=== PATIENT | male | born 1955 | race Caucasian/White ===

== ENCOUNTER 2016-11-21 10:25 | Inpatient (IN) | payer BC ==
[2016-11-05 11:26] VITALS: BMI 34.0
--- NOTE | 2016-11-05 12:02 | PAT Medication Instructions ---
Service Date Nov 05, 2016. Current Home Medication List Acetaminophen (Tylenol), 1,000 MG PO PRN Aspirin (Aspirin Ec), 81 MG PO QAM Atorvastatin (Lipitor), 80 MG PO QAM Carvedilol (Coreg), 3.125 MG PO BID Clopidogrel (Plavix), 75 MG PO QAM Ezetimibe (Zetia), 10 MG PO QAM Metformin Hcl (Glucophage), 1,000 MG PO QPM Ranolazine (Ranexa), 1 TAB PO BID Triamterene/Hctz (Maxzide 75MG/50MG), 0.5 TAB PO QAM Medication Instructions For Your Scheduled Surgery - Hold the following medications 5 DAYS prior to surgery per Cardiology instructions: Clopidogrel (Plavix), 75 MG PO QAM - Hold the following medications 48 hours prior to surgery: Metformin Hcl (Glucophage), 1,000 MG PO QPM - Hold the following medications the morning of surgery: Triamterene/Hctz (Maxzide 75MG/50MG), 0.5 TAB PO QAM - Take the following medications the morning of surgery with a sip of water OTHERWISE NOTHING TO EAT OR DRINK AFTER MIDNIGHT: Ranolazine (Ranexa), 1 TAB PO BID Carvedilol (Coreg), 3.125 MG PO BID Ezetimibe (Zetia), 10 MG PO QAM Aspirin (Aspirin Ec), 81 MG PO QAM Atorvastatin (Lipitor), 80 MG PO QAM Acetaminophen (Tylenol), 1,000 MG PO PRN (may take if needed up to 4 hours prior to surgery) - Take the following medications as scheduled the night before surgery: Ranolazine (Ranexa), 1 TAB PO BID Carvedilol (Coreg), 3.125 MG PO BID Acetaminophen (Tylenol), 1,000 MG PO PRN If you have any questions please call us at [phone] or [phone] or [phone]
[2016-11-05 12:30] LABS: BASO % 0.5 %; BASO ABS # 0.02 K/uL (0-0.2); COMPLETE YES; EOS % 1.9 %; IG% 0.2 %; LYMPH % 26.9 %; LYMPH ABS # 1.16 K/uL (1.2-3.4); MEAN CELL VOLUME 90.5 fL (80-100); MEAN CORPUSCULAR HEMOGLOBIN 31.6 pg (25-34); MEAN CORPUSCULAR HGB CONC 34.9 g/dl (32-36); MEAN PLATELET VOLUME 10.4 fL (7.4-10.4); MONO % 9.3 %; NEUT % 61.2 %; PLATELET COUNT 167 K/uL (130-400); RED BLOOD COUNT 4.31 M/uL (4.7-6.1); WHITE BLOOD COUNT 4.32 K/uL (4.8-10.8)
[2016-11-05 12:35] LABS: URINE APPEARANCE CLEAR (CLEAR); URINE BILIRUBIN NEG (NEG); URINE COLOR YELLOW; URINE NITRITE NEG (NEG); URINE PH 5.5 (4.5-7.5); URINE SPECIFIC GRAVITY 1.017 (1.000-1.030); UROBILINOGEN NEG (NEG); ZZUR CULT IF INDIC CLEAN CATCH NO
[2016-11-05 12:41] LABS: MANUAL MICROSCOPIC REQUIRED? NO; REVIEW REQ? NO
[2016-11-05 12:47] LABS: PARTIAL THROMBOPLASTIN RATIO 1.1; PROTHROMBIN TIME (PATIENT) 10.7 SECONDS (9.0-12.0)
[2016-11-05 13:20] LABS: ESTIMATED AVERAGE GLUCOSE 91 mg/dl; HA1C FLAG Normal (Normal)
--- NOTE | 2016-11-05 13:34 | DIAGNOSTIC IMAGING REPORT ---
CHEST 2 VIEWS ROUTINE CLINICAL HISTORY: Preoperative evaluation. COMPARISON STUDY: No previous studies for comparison. FINDINGS: Lung volumes are normal. There is no pneumothorax or pleural effusion. There is no consolidation to suggest pneumonia. Cardiac size is normal. Mediastinal contours are normal. No evidence of pulmonary edema. Osteoarthritis of the right glenohumeral joint is noted. Linear left lower lung opacity is suggestive of atelectasis. There is minimal right lower lung atelectasis. IMPRESSION: No acute cardiopulmonary findings. Electronically signed by: Jmiy Hall M.D. 11/05/2016 1:33 PM Dictated Date/Time: 11/05/2016 1:31 PM
[2016-11-05 14:01] LABS: BUN/CREATININE RATIO 12.7 (10-20); CALCIUM 9.1 mg/dl (8.5-10.1)
--- NOTE | 2016-11-20 21:08 | History and Physical ---
History & Physical Date & Time of Service: Nov 20, 2016 at 21:02 Chief Complaint: Right Shoulder Degenerative Joint Disease Primary Care Physician: Tori Spangler M.D. History of Present Illness Source: patient chronic rt shoulder pain, Past Medical/Surgical History Heart murmur, HTN, Hypercholsterol, acid reflux. hiatel hernia, obesity. Social History Smoking Status: Never Smoker Alcohol Use: occasionally Allergies Coded Allergies: No Known Allergies (Unverified , 11/05/16) Home Medications Scheduled Acetaminophen (Tylenol), 1,000 MG PO PRN Aspirin (Aspirin Ec), 81 MG PO QAM Atorvastatin (Lipitor), 80 MG PO QPM Carvedilol (Coreg), 3.125 MG PO BID Clopidogrel (Plavix), 75 MG PO QAM Ezetimibe (Zetia), 10 MG PO QAM Metformin Hcl (Glucophage), 1,000 MG PO QPM Ranolazine (Ranexa), 1 TAB PO BID Triamterene/Hctz (Maxzide 75MG/50MG), 0.5 TAB PO QAM Review of Systems Musculoskeletal: + joint pain, + muscle pain Physical Exam General Appearance: WD/WN, no apparent distress Head: normocephalic, atraumatic Eyes: normal inspection, PERRL, EOMI ENT: normal ENT inspection Respiratory/Chest: chest non-tender, lungs clear Cardiovascular: regular rate, rhythm (+ iii/vi murmur) right shoulder decreased strength, + crep w PROM, N/V+ Impression Assessment and Plan Right shooulder OA Advanced Directives Existing Living Will: No Existing Power of Wharf Attendant: No
[2016-11-21] VITALS (8 sets, daily range): BP systolic 108–137; BP diastolic 60–91; PULSE 57–93; TEMP 36.6–37; O2SAT 94–99; Ht 172.7 cm; Wt 102.1 kg
[~2016-11-21] VITALS: Ht 172.7 cm; Wt 102.1 kg
[~2016-11-21 10:25] MED LIST: ACET-1256 PO; ACETAMINOPHEN 500 MG TAB PO SCH; ASPI81TA28 PO; ATOR-26 PO; BUPIVACAINE/EPINEPHRINE 0.25% 1:200,000 30 ML VIAL ONE; CARV3.122 PO; CEFAZOLIN 2000 MG/60 ML D5W 60 ML IV SCH; CLONIDINE HCL 100 MCG/ML SYRINGE ONE; CLOP1TAB15 PO; CeleBREX 200 MG CAP PO SCH; EZET10TA63 PO; FAMOTIDINE 20 MG TAB PO SCH; GABAPENTIN 300 MG CAP PO SCH; LACTATED RINGER'S 1000ML 1,000 ML IV SCH; LACTATED RINGER'S 1000ML IV SCH; METF-384 PO; METOCLOPRAMIDE HCL 10 MG TAB PO SCH; RANO1000 PO; ROPIVACAINE 0.5% 5 MG/ML 30 ML VIAL ONE; TRIA75TA53 PO
[2016-11-21] MEDS ORDERED: MEPERIDINE HCL 25 MG/ML CARP IV PRN (11:00)
[2016-11-21] MEDS ORDERED: FLUMAZENIL 0.1 MG/1 ML 10 ML VIAL IV PRN (11:00)
[2016-11-21] MEDS ORDERED: PHENYLEPHRINE 100MCG/ML 5ML SYR IV PRN (11:00)
[2016-11-21] MEDS ORDERED: HYDROmorphone INJ 2 MG/ML SYR/VIAL IV PRN (11:00)
[2016-11-21] MEDS ORDERED: FENTANYL CITRATE INJ 50 MCG/1 ML 2 ML VIAL IV PRN (11:00)
[2016-11-21] MEDS ORDERED: ATROPINE SULFATE 0.1 MG/ML 5ML SYR IV PRN (11:00)
[2016-11-21] MEDS ORDERED: ONDANSETRON INJ 2 MG/ML 2 ML VIAL IV PRN ×2 (11:00→18:00)
[2016-11-21] MEDS ORDERED: EpHEDrine SULFATE INJ 50 MG/ML AMP IV PRN (11:00)
[2016-11-21] MEDS ORDERED: LABETALOL HCL IV 5 MG/ML 20ML IV PRN (11:00)
[2016-11-21] MEDS ORDERED: NALOXONE HCL 0.4 MG/1 ML VIAL/CARP IV PRN ×2 (11:00→18:00)
[2016-11-21] MEDS ORDERED: DEXAMETHASONE SOD INJ 4 MG/ML VIAL ONE (12:44)
[2016-11-21] MEDS ORDERED: LIDOCAINE HCL 2% 2 ML VIAL (20MG/ML) ONE (12:44)
[2016-11-21] MEDS ORDERED: NEOSTIGMINE METHYLSULFATE 5 MG/5 ML SYR ONE (12:44)
[2016-11-21] MEDS ORDERED: PROPOFOL IV EMULSION 10 MG/ML 20 ML VIAL IV ONE (12:44)
[2016-11-21] MEDS ORDERED: ONDANSETRON INJ 2 MG/ML 2 ML VIAL ONE (12:44)
[2016-11-21] MEDS ORDERED: GLYCOPYRROLATE INJ 0.2 MG/ML VIAL ONE (12:44)
[2016-11-21] MEDS ORDERED: ROCURONIUM BROMIDE 10 MG/ML 5 ML VIAL ONE (12:44)
[2016-11-21] MEDS ORDERED: FENTANYL CITRATE INJ 50 MCG/1 ML 2 ML VIAL ONE (12:45)
[2016-11-21] MEDS ORDERED: MIDAZOLAM HCL 1 MG/ML 2ML VIAL ONE (12:45)
--- NOTE | 2016-11-21 14:11 | History & Physical Bridge Note ---
H&P Re-Evaluation Bridge Note: I have examined the patient, reviewed the History & Physical and in the interval since the performance of the History & Physical I have noted the following changes of clinical significance:recurrence of ganglion cyst at acj with some tenderness.plan is repair vs debridement of rotator cuff partial tear and reversed total shoulder if cuff tendinopathy more sever than mri suggests.the ganglion cyst will be excised and acj spur and joint debrided
[2016-11-21] MEDS ORDERED: BACITRACIN 50000 UNIT VIAL ONE (14:19)
[2016-11-21] MEDS ORDERED: EpINEphrine HCL INJ 1 MG/ML 5ML SYRINGE ONE (14:20)
[2016-11-21] MEDS ORDERED: MAGNESIUM HYDROXIDE SUSP 30 ML UDC PO PRN (18:00)
[2016-11-21] MEDS ORDERED: ZOLPIDEM TARTRATE 5 MG TAB PO PRN (18:00)
[2016-11-21] MEDS ORDERED: BISACODYL 10 MG SUPP PR PRN (18:00)
[2016-11-21] MEDS ORDERED: SOD PHOSPHATE/SOD BIPHOSPHATE ENEMA 132 ML BTL PR PRN (18:00)
[2016-11-21] MEDS ORDERED: MoRPHine SULFATE 2 MG/ML CARP IV PRN (18:00)
--- NOTE | 2016-11-21 18:18 | Anesthesiology Progress Note ---
Anesthesia Post Op Note Date & Time Nov 21, 2016 at 18:18 Vital Signs Pain Intensity: 0 Vital Signs Past 12 Hours Date Time Temp Pulse Resp B/P (MAP) Pulse Ox O2 Delivery O2 Flow Rate FiO2 11/21/16 18:05 75 19 121/79 98 Mask 10 11/21/16 17:57 36.1 77 16 125/79 98 Mask 10 11/21/16 14:36 59 14 120/84 (96) 100 Mask 10 11/21/16 10:47 36.7 57 18 137/91 98 Room Air Notes Mental Status: alert / awake / arousable, participated in evaluation Pt Amnestic to Procedure: Yes Nausea / Vomiting: adequately controlled Pain: adequately controlled Airway Patency, RR, SpO2: stable & adequate BP & HR: stable & adequate Hydration State: stable & adequate Anesthetic Complications: no major complications apparent
--- NOTE | 2016-11-21 18:22 | [facility] Operative Report ---
Operative Report Operative Date Nov 21, 2016. Pre-Operative Diagnosis Right shoulder osteoarthritis, glenohumeral and acromioclavicular with ganglionic cyst at the acromioclavicular joint, rotator cuff tendinopathy and likely biceps tendinopathy. Post-Operative Diagnosis same with marked biceps tendinopathy with split biceps tendon Procedure(s) Performed Right shoulder total shoulder arthroplasty, biceps tenodesis, excision ganglion cyst at the acromioclavicular joint and acromioclavicular joint debridement with partial distal clavicle excision. Surgeon Dr. Jeremy Najera Health Psychologist Surgeon(s) Samuel Espinal PA-C Estimated Blood Loss 200ml Findings Ganglionic cyst at acromioclavicular joint with recurrent bone spurs acromioclavicular joint and degenerative arthritis posterior acromioclavicular joint status post prior distal clavicle excision. Grade 4 advanced glenohumeral osteoarthritis with significant biceps tendinopathy with significant degeneration of the intra-articular biceps with split biceps tendon. Specimens A: Right humeral head B: Ganglion cyst right shoulder Drains 2 Hemovac Anesthesia Gen. and regional block Complication(s) None Disposition Recovery Room / PACU Indications Failed conservative management severe end-stage glenohumeral osteoarthritis rotator cuff tendinopathy and biceps tendinopathy and ganglion cyst recurrent Description of Procedure The patient was taken to the operating room and anesthetized under a general and regional block anesthesia. A towel roll was placed under the medial border of the scapula of the right shoulder. The patient's head was placed on a foam headrest and protective eyewear was placed and the extremities were well padded. The arm was draped free in order to manipulate the shoulder as necessary. The shoulder exam demonstrated range of motion passively was 160 forward elevation 100 of abduction 70 of external rotation and 40 of internal rotation. There was also a 2 cm ganglion cyst over the acromioclavicular joint. . The shoulder was sterilely prepped and draped in the usual sterile fashion. An anterior deltopectoral approach was performed. A longitudinal incision was made in the interval. The skin was incised sharply and subcutaneous tissues dissected down to the fascia. The cephalic vein was identified and retracted laterally with the deltoid. Any crossing veins were tied off with silk ties and divided. The clavipectoral fascia was divided at the lateral margin of the conjoined tendon and divided up to the level of the coracoacromial ligament which was preserved. The upper 1 cm of the pectoralis was released for inferior exposure. The biceps tendon findings demonstrated significant biceps tenosynovitis extending up into the bicipital groove but the biceps tendon at the area of the pectoralis was normal. Later in the dissection the intra-articular biceps tendon showed marked widening with a split tendon and severe degeneration. . The rotator cuff tendon findings demonstrated that there was scar tissue and subdeltoid adhesions from prior arthroscopic surgery. The bursal surface of the rotator cuff was completely intact and there was some thinning of the supraspinatus consistent with some tendinopathy but no evidence of any full-thickness rotator cuff tear. The subacromial bursa and scar was all resected fraying of the rotator cuff completely and the coracoacromial ligament was left intact. . The circumflex vessels were identified and tied off with silk ties and divided laterally. The fibers and subscapularis were split longitudinally at the level of the circumflex vessels down to the capsule and then reflected off the inferior capsule using a Kitner elevator. The axillary nerve was identified with a tug test and protected with a blunt Michael retractor. The rotator interval was opened up and extended down to the glenoid. The biceps tendon was identified and tenodesed to the pectoralis tendon with [id number] #2 FiberWire sutures and the proximal biceps was resected. The subscapularis tendon was taken down with a trans-tendinous incision leaving a cuff of tissue for repair on the lesser tuberosity. The incision was carried down to the tendon and the capsule and a #1 Vicryl suture was placed into the free end of the subscapularis tendon. The capsule was subperiosteally dissected off the inferior neck of the humerus exposing the humeral osteophytes which demonstrated large inferior osteophytes extending from anterior to posterior. The osteophytes were excised with an artist chisel and a rongeur. The capsular release along the inferior neck of the humerus was completed. The capsule was divided anteriorly under direct visualization with the actually nerve retracted inferiorly and this was divided down to the glenoid and then released off the anterior labrum with Cisneros scissors and then the superior capsule was released to meet that release achieving a 360 release of the subscapularis. The humerus was then retracted posterior to the glenoid with a Fukuda retractor. The remainder of the biceps tendon and labrum was resected. The glenoid findings demonstrated eburnated bone grade 4 DJD concentric erosion. . I did an anterior inferior and posterior inferior release with electrocautery on bone and a Saravia elevator with the axillary nerve continuing to be protected with the blunt Hohmann retractor inferiorly. When the releases were completed and the humeral head was exposed with some extension and external rotation and in anatomic head cut was made using the oscillating saw. The humeral head findings demonstrated grade 4 DJD eburnated bone some flattening of the joint surface. The humeral head was then retracted posterior to the glenoid with Hohmann retractors and Bankart retractor placed anteriorly. A central drill hole was made into the glenoid. The glenoid was sized for a size 48 mm component. The Tornier total shoulder arthroplasty system was used and the AffinityCortiLoc glenoid component was chosen. The glenoid was reamed and the central drill widened and the guide for the peg holes was placed in the peg holes were drilled and a trial component was placed with a tight fit. The trial was removed and the glenoid was irrigated with pulsatile lavage antibiotic solution and the drill holes were dried and packed with epinephrine- soaked tampons for hemostasis. The Palacos G cement was vacuum mixed. The final component was cemented into position and held in position with pressure until the cement cured. Attention was taken to the humeral preparation. A centralizing awl was used in the canal followed by broaches up to a size 7. This had the appropriate fit and fill. A size 50 x 19 mm high offset ascend flex Tornier humeral head was then used. It was rotated into appropriate position. A trial reduction was performed and the shoulder was stable. The trial was removed and the humerus and canal were irrigated with antibiotic solution with bacitracin. 3 drill holes were made into the hard bone in the bicipital groove lateral to the lesser tuberosity and 3 #5 FiberWire transosseous sutures were placed for repair of the subscapularis. After further irrigation of the canal and the final components were assembled. The final components were the 7B standard stem Tornier ascend flex with 52 x 19 high offset head. . The implant was then impacted into the humerus with a tight press-fit. The humerus was reduced to the glenoid and stability verified. The subscapularis was repaired with the #5 FiberWire sutures in a Luis Carlos-Earnest suture technique and lateral row fixation with [id number] #2 FiberWire in the soft tissue. The rotator interval was closed and maximal external rotation. The pectoralis was then closed with [id number] #2 FiberWire suture. The range of motion was assessed and the patient had 150 forward elevation 50 external rotation and 100 abduction without tension on repair. Attention was then taken to the excision of the cyst. A transverse incision was made over the acromioclavicular joint. Subcutaneous tissues were dissected down and off of the ganglionic cyst which was slightly penetrated and gel-like material came out of it which was consistent with a cyst. The cyst was circumferentially excised excising these stalk of the cyst which came from the posterior acromial clavicular joint. Subperiosteal dissection was performed dorsally to expose the acromial clavicular joint which demonstrated that there was some narrowing of the posterior, clavicular joint arthritic spurs over the dorsal aspect of the acromial clavicular joint and some scar tissue in the joint from previous distal clavicle excision. I felt that I should excise more distal clavicle posteriorly so there wouldn't be any impingement. This was performed with a rongeur and the bone spurs were resected dorsally. Scar tissue was resected from the joint and the joint was irrigated copiously with pulsatile lavage. The deltoid trapezius fascia and capsule were repaired with otinsp-ap-etwil #2 FiberWire sutures and the subcutaneous tissues were closed with interrupted 2-0 Vicryl sutures. 2 Hemovac drains were placed in the deltopectoral interval area wound.. The deltopectoral interval was closed with oylvoq-ya-sthio #1 Vicryl sutures. The subcutaneous tissues were closed with interrupted 2-0 Vicryl and the skin was closed with susie both the acromial trabecular and deltopectoral incisions and sterile dressing were applied. The patient tolerated the procedure well. Samuel Espinal My physician assistant softball coach, assisted in soft tissue retraction instrument management suture management and assisted in the subcutaneous and skin closure and will participate in the postoperative care the patient. I attest to the content of the Intraoperative Record and any orders documented therein. Any exceptions are noted below.
--- NOTE | 2016-11-21 18:25 | DIAGNOSTIC IMAGING REPORT ---
RIGHT SHOULDER 2 VIEWS CLINICAL HISTORY: Postoperative examination. FINDINGS: 2 portable views of the right shoulder are obtained. No prior studies are available for comparison at the time of dictation. The skeletal structures are osteopenic. A right shoulder arthroplasty is in near-anatomic alignment. Postoperative change is suggested at the acromioclavicular joint. No acute fracture is seen. There are expected postoperative changes overlying the right shoulder including skin clips, subcutaneous gas, soft tissue swelling, and a surgical drain. The partially imaged right lung parenchyma appears clear. IMPRESSION: Expected postoperative findings status post right shoulder arthroplasty. No acute fracture is seen. Electronically signed by: Naibl Hernandez M.D. 11/21/2016 6:24 PM Dictated Date/Time: 11/21/2016 6:23 PM
[2016-11-21] MEDS: POTASSIUM CHLORIDE INJ 10 MEQ in SODIUM CHLORIDE 0.9% 1000ML 1,000 ML IV SCH (19:44)
[2016-11-21] MEDS ORDERED: GLUCOSE 40% GEL 15 GM TUBE PO PRN (19:45)
[2016-11-21] MEDS ORDERED: GLUCOSE 10 TABS/TUBE PO PRN (19:45)
[2016-11-21] MEDS ORDERED: DEXTROSE 50% 50 ML SYR IV PRN (19:45)
[2016-11-21] MEDS ORDERED: GLUCAGON FOR INJ 1 MG VIAL SQ PRN (19:45)
[2016-11-21] MEDS ORDERED: PNEUMOCOCCAL ADMINISTRATION CHARGE ONE (21:00)
[2016-11-21] MEDS ORDERED: PNEUMOCOCCAL POLYSACCHARIDES 25 MCG/0.5 ML VIAL/SYR IM. ONE (21:00)
[2016-11-21] MEDS: ATORVASTATIN 40 MG TAB PO SCH (21:29)
[2016-11-21] MEDS: DOCUSATE SODIUM 100 MG CAP PO SCH (21:30)
[2016-11-21] MEDS: CARVEDILOL 3.125 MG TAB PO SCH (21:30)
[2016-11-21] MEDS: OXYCODONE HCL 10 MG TABCR (OXYCONTIN) PO SCH (21:31)
[2016-11-21] MEDS: INSULIN ASPART 100 UNITS/ML 3 ML PEN SC SCH (21:43)
[2016-11-21] MEDS: ACETAMINOPHEN 500 MG TAB PO SCH (21:45)
[2016-11-22] VITALS (7 sets, daily range): BP systolic 110–136; BP diastolic 73–86; PULSE 64–75; TEMP 36.4–36.7; O2SAT 96–100
[2016-11-22] MEDS: CEFAZOLIN IV 2,000 MG in DEXTROSE 5% 50ML 50 ML IV SCH ×2 (00:18→08:11)
[2016-11-22] MEDS: POTASSIUM CHLORIDE INJ 10 MEQ in SODIUM CHLORIDE 0.9% 1000ML 1,000 ML IV SCH ×2 (05:59→20:48)
[2016-11-22] MEDS: ACETAMINOPHEN 500 MG TAB PO SCH ×3 (06:00→22:29)
[2016-11-22 07:47] LABS: HEMATOCRIT 37.3 % (42-52); MEAN CELL VOLUME 90.5 fL (80-100); MEAN CORPUSCULAR HEMOGLOBIN 31.3 pg (25-34); MEAN CORPUSCULAR HGB CONC 34.6 g/dl (32-36); MEAN PLATELET VOLUME 10.4 fL (7.4-10.4); PLATELET COUNT 172 K/uL (130-400); RED BLOOD COUNT 4.12 M/uL (4.7-6.1); WHITE BLOOD COUNT 10.84 K/uL (4.8-10.8)
--- NOTE | 2016-11-22 07:48 | Anesthesiology Progress Note ---
Anesthesia Post Op Note Date & Time Nov 22, 2016 at 07:48 Vital Signs Pain Intensity: 0.0 Vital Signs Past 12 Hours Date Time Temp Pulse Resp B/P (MAP) Pulse Ox O2 Delivery O2 Flow Rate FiO2 11/22/16 03:05 36.7 75 16 110/77 (88) 97 Room Air 11/22/16 00:16 Room Air 11/21/16 23:21 36.6 86 16 123/85 (98) 96 Room Air 11/21/16 22:00 36.6 79 16 109/75 (86) 94 Room Air 11/21/16 21:22 36.7 93 18 118/82 (94) 96 Room Air 11/21/16 19:55 36.7 63 18 109/73 (85) 98 Nasal Cannula 2.0 Notes Mental Status: alert / awake / arousable, participated in evaluation Pt Amnestic to Procedure: Yes Nausea / Vomiting: adequately controlled Pain: adequately controlled Airway Patency, RR, SpO2: stable & adequate BP & HR: stable & adequate Hydration State: stable & adequate Anesthetic Complications: no major complications apparent
[2016-11-22 08:14] LABS: BUN/CREATININE RATIO 12.6 (10-20); CALCIUM 8.3 mg/dl (8.5-10.1); CREATININE 1.1 mg/dl (0.60-1.40); POTASSIUM 4.4 mmol/L (3.5-5.1)
[2016-11-22] MEDS: INSULIN ASPART 100 UNITS/ML 3 ML PEN SC SCH ×4 (08:16→20:53)
[2016-11-22] MEDS: PANTOprazole SOD 40 MG TAB PO SCH (08:17)
[2016-11-22] MEDS: OXYCODONE HCL 10 MG TABCR (OXYCONTIN) PO SCH ×2 (08:17→20:55)
[2016-11-22] MEDS: MULTIVITAMIN TAB PO SCH (08:18)
[2016-11-22] MEDS: EZETIMIBE 10MG TAB PO SCH (08:18)
[2016-11-22] MEDS: DOCUSATE SODIUM 100 MG CAP PO SCH ×2 (08:18→20:50)
[2016-11-22] MEDS: CLOPIDOGREL BISULFATE 75 MG TAB PO SCH (08:18)
[2016-11-22] MEDS: ASPIRIN 81 MG ECTAB PO SCH (08:18)
[2016-11-22] MEDS: CARVEDILOL 3.125 MG TAB PO SCH ×2 (08:18→20:51)
--- NOTE | 2016-11-22 08:35 | Orthopedic Progress Note ---
Orthopedic Progress Note Date of Service Nov 22, 2016. Subjective Post OP Day: 1 Reports: feeling well, pain controlled w PO medications, Denies: complaints, chest pain, SOB, nausea / vomiting, light headedness, calf pain Objective N/V intact, capillary refill less than 2 sec., dressing C/D/I, A&O x3 Sling in tact, fingers mobile. Date Time Temp Pulse Resp B/P (MAP) Pulse Ox O2 Delivery O2 Flow Rate FiO2 11/22/16 07:48 36.5 74 14 136/82 (100) 96 Room Air 11/22/16 03:05 36.7 75 16 110/77 (88) 97 Room Air 11/22/16 00:16 Room Air 11/21/16 23:21 36.6 86 16 123/85 (98) 96 Room Air 11/21/16 22:00 36.6 79 16 109/75 (86) 94 Room Air 11/21/16 21:22 36.7 93 18 118/82 (94) 96 Room Air 11/21/16 19:55 36.7 63 18 109/73 (85) 98 Nasal Cannula 2.0 11/21/16 19:25 36.6 70 16 108/72 (84) 99 Nasal Cannula 2.0 11/21/16 19:00 Nasal Cannula 2.0 11/21/16 19:00 98 Nasal Cannula 2.0 11/21/16 18:55 37.0 73 18 114/75 (88) 98 Nasal Cannula 2.0 11/21/16 18:45 73 16 111/73 98 Nasal Cannula 2 11/21/16 18:35 36.3 74 20 119/76 98 Nasal Cannula 2 11/21/16 18:25 73 20 120/77 99 Nasal Cannula 2 11/21/16 18:15 76 19 115/83 99 Mask 10 11/21/16 18:05 75 19 121/79 98 Mask 10 11/21/16 17:57 36.1 77 16 125/79 98 Mask 10 11/21/16 14:36 59 14 120/84 (96) 100 Mask 10 11/21/16 10:47 36.7 57 18 137/91 98 Room Air Laboratory Results 24 Hours: Test 11/22/16 07:21 Hematocrit 37.3 % Hemoglobin 12.9 g/dL Assessment & Plan Assessment: POD #1, Right TSA, biceps tenodesis Plan: PT/ OT DVT proph- ASA D/C plans- home w OPPT Sat. As per medicine. Inhouse Planning Pain Management: Oxycontin, Morphine, PO Tylenol, Oxy IR DVT Prophylaxis: SCDs, ASA Discharge Planning Discharge Planning: home with oppt Pain Management: Oxycontin, PO Tylenol, Oxy IR DVT Prophylaxis: ASA Therapy: Physical Therapy, Occupational Therapy
--- NOTE | 2016-11-22 08:36 | Discharge Instructions ---
Discharge Instructions Date of Service Nov 22, 2016. Admission Reason for Admission: Right Shoulder Degenerative Joint Disease Discharge Discharge Diagnosis / Problem: Right TSA, biceps tenodesis Discharge Goals Goal(s): Improve function Activity Recommendations Activity Limitations: as noted below . Instructions / Follow-Up Instructions / Follow-Up ACTIVITY RECOMMENDATIONS: SELF CARE INSTRUCTIONS AFTER TOTAL SHOULDER ARTHROPLASTY A. You may do daily exercises as taught in physical therapy while in hospital. No lifting with the operative arm. Please schedule your outpatient physical therapy appointment to begin within 2-3 days after leaving the hospital. Specific restrictions will be written on your physical therapy prescription that is provided to you. B. You are to wear your sling/immobilizer at all times EXCEPT when performing your daily exercises, participating in physical therapy and for hygiene purposes. C. You may perform dry, daily dressing changes. Please keep your incision covered. You may shower 48 hours after surgery. Do not apply soap or any ointment/ lotions directly over incision. Do not soak incision in bath tub/swimming pool. D. You may use ice as needed to operative shoulder. SPECIAL CARE INSTRUCTIONS: MEDICATION INSTRUCTIONS: *It is recommended you take Aspirin 325mg daily for four weeks post-op. VERY IMPORTANT TO READ AND REVIEW A. There are a few signs you need to watch for after you are home. Call [facility] at [phone] if you experience any of the followin. Increased severe shoulder pain. Some pain is expected especially when you exercise. 2. Increased swelling in you shoulder or arm; pain or swelling in either upper extremity. 3. Any fluid drainage from the incision. 4. Shortness of breath or chest pain. B. Please call [facility] at [phone] if you have any questions or concerns about your operation or recovery. C. Call your physician if: 1. Temperature is greater than 101 degrees (F). 2. Pain is not relieved by prescribed pain medications. 3. Increase drainage or redness from incision. 4. Unanswered questions or concerns. FOLLOW UP VISIT: Please call [facility] at [phone] to schedule a follow up appointment with Dr. Najera or his PA in 12-14 days from your surgery date. Current Hospital Diet Patient's current hospital diet: Diabetes Type 2 Diet Discharge Diet Recommended Diet: Diabetes Type 2 Diet Procedures Procedures Performed: Right Total Shoulder Arthroplasty; Excision of Ganglion Cyst and Debridement of Acromioclavicular Joint Spur and Joint; Biceps Tenodesis Pending Studies Studies pending at discharge: no Laboratory Results Hemoglobin A1c Test 11/05/16 12:10 Range/Units Estimated Average Glucose 91 mg/dl Hemoglobin A1c 4.8 4.5-5.6 % Medical Emergencies . Who to Call and When: Medical Emergencies: If at any time you feel your situation is an emergency, please call 911 immediately. . Non-Emergent Contact Non-Emergency issues call your: Primary Care Provider . "Provider Documentation" section prepared by Samuel Espinal. . VTE Core Measure Inpt VTE Proph given/why not?: Other Anticoagulation (asa), SCD's [place] Drug Monitoring Program Search Results: patient reviewed within database, no issues identified
[2016-11-22] MEDS: TRIAMTERENE/HCTZ 37.5/25MG TAB PO SCH (08:42)
[2016-11-22] MEDS ORDERED: TRIAMTERENE/HCTZ 37.5/25MG CAP PO SCH (09:00)
--- NOTE | 2016-11-22 16:49 | Medical Consult ---
Consultation Date of Consultation: Nov 22, 2016. Attending Physician: Jeremy Najera M.D. Reason for Consultation: Medical management History of Present Illness Pt is a 61 yo male with hx of HTN, GERD, CARD with total 5 stents placed, who presents with worsening right shoulder pain. Pt underwent a total shoulder arthroplasty with ganglion cyst removal and consulted to our services for medical management. Social History Smoking Status: Never Smoker Alcohol Use: occasionally (2-3 beers a night) Drug Use: none Marital Status: Housing Status: lives with family Allergies Coded Allergies: No Known Allergies (Unverified , 11/21/16) Current Inpatient Medications Current Inpatient Medications Medications (Trade) Dose Ordered Sig/Shanta Route Start Time Stop Time Status Last Admin Dose Admin Aspirin (Ecotrin Tab) 81 mg QAM PO 11/22/16 09:00 12/22/16 08:59 11/22/16 08:18 81 MG Atorvastatin Calcium (Lipitor Tab) 80 mg QPM PO 11/21/16 21:00 12/21/16 20:59 11/21/16 21:29 80 MG Carvedilol (Coreg Tab) 3.125 mg BID PO 11/21/16 21:00 12/21/16 20:59 11/22/16 08:18 3.125 MG Clopidogrel Bisulfate (plAVix TAB) 75 mg QAM PO 11/22/16 09:00 12/22/16 08:59 11/22/16 08:18 75 MG EZETIMIBE (Zetia Tab) 10 mg QAM PO 11/22/16 09:00 12/22/16 08:59 11/22/16 08:18 10 MG Miscellaneous Information (Order Awaiting Action) 1 ea QS N/A 11/22/16 00:00 12/22/16 00:00 Diphenhydramine HCl (Benadryl Cap) 25 mg Q8 PRN PO 11/21/16 18:00 12/21/16 17:59 Zolpidem Tartrate (Ambien Tab) 5 mg HSZ PRN PO 11/21/16 18:00 12/21/16 17:59 Ondansetron HCl (Zofran Inj) 4 mg Q6H PRN IV 11/21/16 18:00 12/21/16 17:59 Pantoprazole Sodium (Protonix Tab) 40 mg QAM PO 11/22/16 09:00 12/22/16 08:59 11/22/16 08:17 40 MG Potassium Chloride 10 meq/ Sodium Chloride 1,005 ml @ 100 mls/hr Q10H3M IV 11/21/16 20:00 11/22/16 19:59 11/22/16 05:59 100 MLS/HR Oxycodone HCl (Roxicodone Immediate Rel Tab) `1-2 TABS FOR PAIN `1 TAB... Q4H PRN PO 11/21/16 18:00 12/05/16 17:59 Oxycodone HCl (Oxycontin Tab) 10 mg Q12 PO 11/21/16 21:00 12/05/16 20:59 11/22/16 08:17 10 MG Acetaminophen (Tylenol Tab) 1,000 mg Q8 PO 11/21/16 22:00 12/21/16 21:59 11/22/16 13:44 1,000 MG Morphine Sulfate (MoRPHine SULFATE INJ) 2 mg Q2H PRN IV 11/21/16 18:00 12/05/16 17:59 Naloxone HCl (Narcan Inj) 0.1 mg Q2M PRN IV 11/21/16 18:00 12/21/16 17:59 Magnesium Hydroxide (Milk Of Magnesia Susp) 30 ml Q6H PRN PO 11/21/16 18:00 12/21/16 17:59 Bisacodyl (Dulcolax Supp) 10 mg DAILY PRN CA 11/21/16 18:00 12/21/16 17:59 Sodium Biphosphate/ Sodium Phosphate (Fleet Enema) 132 ml DAILY PRN CA 11/21/16 18:00 12/21/16 17:59 Docusate Sodium (coLACE CAP) 100 mg BID PO 11/21/16 21:00 12/21/16 20:59 11/22/16 08:18 100 MG Multivitamins (Multivitamin Tab) 1 tab DAILY PO 11/22/16 09:00 12/22/16 08:59 11/22/16 08:18 1 TAB Insulin Aspart (novoLOG ASPART) SLIDING SCALE G... ACHS SC 11/21/16 21:00 12/21/16 20:59 11/22/16 12:14 6 UNITS Glucose (Glucose 40% Gel) 15-30 GRAMS 15 GRAMS... UD PRN PO 11/21/16 19:45 12/21/16 19:44 Glucose (Glucose Chew Tab) 4-8 Tablets 4 Tabl... UD PRN PO 11/21/16 19:45 12/21/16 19:44 Dextrose (Dextrose 50% 50ML Syringe) 25-50ML OF 50% DW IV FOR... UD PRN IV 11/21/16 19:45 12/21/16 19:44 Glucagon (Glucagon Inj) 1 mg UD PRN SQ 11/21/16 19:45 12/21/16 19:44 Morphine Sulfate (MoRPHine SULFATE INJ) 4 mg Q2H PRN IV 11/21/16 19:45 12/05/16 19:44 Triamterene/HCTZ (Maxzide 37.5/25 Tab) 0.5 tab QAM PO 11/22/16 09:00 12/22/16 08:59 11/22/16 08:42 0.5 TAB Review of Systems Constitutional: No fever, No chills Eyes: No worsening of vision, No eye pain, No redness, No discharge ENT: No hearing loss, No unusual epistaxis, No nasal symptoms, No tinnitus Respiratory: No cough, No sputum, No wheezing, No shortness of breath Cardiovascular: No chest pain, No orthopnea, No PND, No edema Abdomen: No pain, No nausea, No vomiting, No diarrhea Musculoskeletal: No joint pain, No muscle pain, No swelling, No calf pain Genitourinary - Male: No hematuria, No dysuria, No urinary frequency, No urinary urgency Neurologic: No memory loss, No paralysis, No weakness, No numbness/tingling, No vertigo Psychiatric: No depression symptoms, No anhedonism, No anxiety, No insomnia Integumentary: No rash, No itch Physical Exam Date Time Temp Pulse Resp B/P (MAP) Pulse Ox O2 Delivery O2 Flow Rate FiO2 11/22/16 14:49 36.4 67 18 117/73 (88) 97 Room Air 11/22/16 11:33 36.7 64 16 123/77 (92) 97 Room Air 11/22/16 08:18 69 133/86 (102) 11/22/16 07:48 36.5 74 14 136/82 (100) 96 Room Air 11/22/16 07:20 Room Air 11/22/16 03:05 36.7 75 16 110/77 (88) 97 Room Air 11/22/16 00:16 Room Air 11/21/16 23:21 36.6 86 16 123/85 (98) 96 Room Air 11/21/16 22:00 36.6 79 16 109/75 (86) 94 Room Air 11/21/16 21:22 36.7 93 18 118/82 (94) 96 Room Air 11/21/16 19:55 36.7 63 18 109/73 (85) 98 Nasal Cannula 2.0 11/21/16 19:25 36.6 70 16 108/72 (84) 99 Nasal Cannula 2.0 11/21/16 19:00 Nasal Cannula 2.0 11/21/16 19:00 98 Nasal Cannula 2.0 11/21/16 18:55 37.0 73 18 114/75 (88) 98 Nasal Cannula 2.0 11/21/16 18:45 73 16 111/73 98 Nasal Cannula 2 11/21/16 18:35 36.3 74 20 119/76 98 Nasal Cannula 2 11/21/16 18:25 73 20 120/77 99 Nasal Cannula 2 11/21/16 18:15 76 19 115/83 99 Mask 10 11/21/16 18:05 75 19 121/79 98 Mask 10 11/21/16 17:57 36.1 77 16 125/79 98 Mask 10 General Appearance: WD/WN, no apparent distress Head: normocephalic, atraumatic Eyes: normal inspection, PERRL, EOMI, sclerae normal, funduscopic exam normal Neck: supple, no adenopathy, thyroid normal, no JVD Respiratory/Chest: chest non-tender, lungs clear, normal breath sounds, no respiratory distress Cardiovascular: regular rate, rhythm, no edema, no gallop, no JVD Abdomen/GI: normal bowel sounds, non tender, soft, no organomegaly, no pulsatile mass Back: normal inspection, no CVA tenderness Neurologic/Psych: no motor/sensory deficits, alert, normal mood/affect, normal reflexes Laboratory Results Last 24 Hours Test 11/21/16 18:04 11/21/16 19:18 11/21/16 21:37 11/22/16 07:21 Bedside Glucose 108 mg/dl 141 mg/dl 153 mg/dl White Blood Count 10.84 K/uL Red Blood Count 4.12 M/uL Hemoglobin 12.9 g/dL Hematocrit 37.3 % Mean Corpuscular Volume 90.5 fL Mean Corpuscular Hemoglobin 31.3 pg Mean Corpuscular Hemoglobin Concent 34.6 g/dl RDW Standard Deviation 41.4 fL RDW Coefficient of Variation 12.5 % Platelet Count 172 K/uL Mean Platelet Volume 10.4 fL Sodium Level 138 mmol/L Potassium Level 4.4 mmol/L Chloride Level 107 mmol/L Carbon Dioxide Level 22 mmol/L Anion Gap 9.0 mmol/L Blood Urea Nitrogen 14 mg/dl Creatinine 1.10 mg/dl Est Creatinine Clear Calc Drug Dose 82.7 ml/min Estimated GFR () 84.1 Estimated GFR (Non- 72.6 BUN/Creatinine Ratio 12.6 Random Glucose 132 mg/dl Calcium Level 8.3 mg/dl Test 11/22/16 08:09 11/22/16 11:50 Bedside Glucose 130 mg/dl 120 mg/dl Assessment & Plan Pt is a 61 yo male with worsening shoulder pain s/p total shoulder arthroplasty POD#1 Right shoulder arthritis s/p total shoulder arthroplasty POD #1. Pain controlled. PT/OT and DVT ppx per primary team. No acute blood loss anemia CAD stable, cont home meds at this time, OK to cont ASA and plavix HTN controlled cont home meds GERD cont PPI
[2016-11-22] MEDS: ATORVASTATIN 40 MG TAB PO SCH (20:50)
[2016-11-22] MEDS: MoRPHine SULFATE 4 MG/ML 1 ML CARP IV PRN (22:45)
[2016-11-22] MEDS: OXYCODONE HCL IR 5 MG TAB (IMMEDIATE RELEASE) PO PRN (23:57)
[2016-11-23] MEDS: MoRPHine SULFATE 4 MG/ML 1 ML CARP IV PRN (00:52)
[2016-11-23] MEDS: ACETAMINOPHEN 500 MG TAB PO SCH ×2 (05:44→13:40)
[2016-11-23 06:30] LABS: HEMATOCRIT 32.8 % (42-52); MEAN CELL VOLUME 91.1 fL (80-100); MEAN CORPUSCULAR HEMOGLOBIN 31.7 pg (25-34); MEAN CORPUSCULAR HGB CONC 34.8 g/dl (32-36); MEAN PLATELET VOLUME 10.3 fL (7.4-10.4); PLATELET COUNT 140 K/uL (130-400); WHITE BLOOD COUNT 7.37 K/uL (4.8-10.8)
[2016-11-23 06:59] VITALS: BP 126/78; PULSE 62; TEMP 36.7; O2SAT 99
[2016-11-23 07:27] LABS: CALCIUM 8.3 mg/dl (8.5-10.1); CREATININE 0.74 mg/dl (0.60-1.40); POTASSIUM 3.8 mmol/L (3.5-5.1)
[2016-11-23] MEDS: OXYCODONE HCL IR 5 MG TAB (IMMEDIATE RELEASE) PO PRN ×2 (07:47→12:53)
[2016-11-23] MEDS: CARVEDILOL 3.125 MG TAB PO SCH (08:45)
[2016-11-23] MEDS: EZETIMIBE 10MG TAB PO SCH (08:45)
[2016-11-23] MEDS: MULTIVITAMIN TAB PO SCH (08:45)
[2016-11-23] MEDS: CLOPIDOGREL BISULFATE 75 MG TAB PO SCH (08:45)
[2016-11-23] MEDS: OXYCODONE HCL 10 MG TABCR (OXYCONTIN) PO SCH (08:45)
[2016-11-23] MEDS: TRIAMTERENE/HCTZ 37.5/25MG TAB PO SCH (08:45)
[2016-11-23] MEDS: DOCUSATE SODIUM 100 MG CAP PO SCH (08:45)
[2016-11-23] MEDS: ASPIRIN 81 MG ECTAB PO SCH (08:45)
[2016-11-23] MEDS: PANTOprazole SOD 40 MG TAB PO SCH (08:46)
[2016-11-23] MEDS: INSULIN ASPART 100 UNITS/ML 3 ML PEN SC SCH ×2 (08:52→12:00)
--- NOTE | 2016-11-23 09:02 | Orthopedic Progress Note ---
Orthopedic Progress Note Date of Service Nov 23, 2016. Subjective Post OP Day: 2 Reports: feeling well, Denies: chest pain, SOB, nausea / vomiting, light headedness, calf pain Additional Notes: PATIENT HAVING A LOT OF PAIN OVERNIGHT. WAS EDUCATED ON PAIN MANAGEMENT. SEEMS MUCH BETTER THIS AM NOW THAT HE'S NOT WAITING FOR PAIN 8-9 BEFORE ASKING Objective calves soft nontender, N/V intact, dressing C/D/I, A&O x3, toes mobile Date Time Temp Pulse Resp B/P (MAP) Pulse Ox O2 Delivery O2 Flow Rate FiO2 11/23/16 07:50 Room Air 11/23/16 06:59 36.7 62 19 126/78 (94) 99 Room Air 11/22/16 23:45 Room Air 11/22/16 23:04 36.7 66 20 122/76 (91) 98 Room Air 11/22/16 16:30 97 Room Air 11/22/16 14:49 36.4 67 18 117/73 (88) 97 Room Air 11/22/16 11:33 36.7 64 16 123/77 (92) 97 Room Air Laboratory Results 24 Hours: Test 11/23/16 05:47 Hematocrit 32.8 % Hemoglobin 11.4 g/dL Assessment & Plan Assessment: POD #2, Right TSA, biceps tenodesis Plan: PT/ OT DVT proph- ASA D/C plans- home w OPPT Sat. As per medicine. Patient seen and examined, agree with above. Pain better controlled now plan D/C Inhouse Planning Pain Management: Oxycontin, Morphine, PO Tylenol, Oxy IR DVT Prophylaxis: SCDs, ASA Discharge Planning Discharge Planning: home with oppt (DC HOME TODAY IF PAIN CONTROLLED.) Pain Management: Oxycontin, PO Tylenol, Oxy IR DVT Prophylaxis: ASA Therapy: Physical Therapy, Occupational Therapy
[2016-11-23] MEDS ORDERED: RXC5 PO (09:05)
[2016-11-23] MEDS ORDERED: OXYSR10 PO (09:05)
[2016-11-23] MEDS ORDERED: ONDA8TAB6 PO (09:05)
[2016-11-23] MEDS ORDERED: ACET-1256 PO (09:05)
[2016-11-23 10:03] VITALS: BP 126/78; PULSE 62; TEMP 36.7; O2SAT 99
== END 2016-11-23 14:18 | disposition home or self-care (01) | DRG 483 ==
LOC: C.ACU 10:25 → C.3E 10:30 → ENRESERV 18:18
PROVIDERS: ADMIT Orthopaedic Surgery Sports Medicine; ATTEND Orthopaedic Surgery Sports Medicine
PROC: 0LQ30ZZ Repair Right Upper Arm Tendon, Open Approach (ICD-10-PCS; principal; 2016-11-21 12:25)
PROC: 0RBG0ZZ Excision of Right Acromioclavicular Joint, Open Approach (ICD-10-PCS; principal; 2016-11-21 12:25)
PROC: 0RRJ0JZ Replacement of Right Shoulder Joint with Synthetic Substitute, Open Approach (ICD-10-PCS; principal; 2016-11-21 12:25)
DX: M19.011 Primary osteoarthritis, right shoulder (principal); M67.411 Ganglion, right shoulder; M67.813 Other specified disorders of tendon, right shoulder; I11.9 Hypertensive heart disease without heart failure; I25.10 Atherosclerotic heart disease of native coronary artery without angina pectoris; E78.00 Pure hypercholesterolemia, unspecified; E11.9 Type 2 diabetes mellitus without complications; K21.9 Gastro-esophageal reflux disease without esophagitis; E66.9 Obesity, unspecified; Z68.34 Body mass index [BMI] 34.0-34.9, adult; Z79.899 Other long term (current) drug therapy; Z79.82 Long term (current) use of aspirin; Z79.84 Long term (current) use of oral hypoglycemic drugs; Z79.02 Long term (current) use of antithrombotics/antiplatelets; Z95.5 Presence of coronary angioplasty implant and graft

== ENCOUNTER 2019-08-23 07:50 | Inpatient (IN) ==
--- NOTE | 2019-07-13 13:24 | PAT Medication Instructions ---
Medication Instructions Date of Service July 13, 2019 Home Medications acetaminophen [Tylenol Extra Strength] 1,000 mg PO Q6H PRN aspirin [Aspir-81] 81 mg PO QAM atorvastatin 80 mg PO PM cholecalciferol (vitamin D3) [Vitamin D3] 2,000 unit PO QAM ezetimibe [Zetia] 10 mg PO QAM metformin 500 mg PO QPM ranolazine [Ranexa] 1,000 mg PO BID warfarin 2 - 4 mg PO QPM ASK your prescriber and surgeon warfarin 2 - 4 mg PO QPM DO NOT take the morning of surgery cholecalciferol (vitamin D3) [Vitamin D3] 2,000 unit PO QAM Take morning of surgery With a small sip of water, OTHERWISE NOTHING TO EAT OR DRINK AFTER MIDNIGHT: acetaminophen [Tylenol Extra Strength] 1,000 mg PO Q6H PRN (if needed, may be taken up to four hours before surgery) aspirin [Aspir-81] 81 mg PO QAM ezetimibe [Zetia] 10 mg PO QAM ranolazine [Ranexa] 1,000 mg PO BID Take evening before surgery acetaminophen [Tylenol Extra Strength] 1,000 mg PO Q6H PRN (if needed) atorvastatin 80 mg PO PM metformin 500 mg PO QPM ranolazine [Ranexa] 1,000 mg PO BID Other Notes If you have any questions please call us at [phone] or [phone] or [phone] or [phone]
--- NOTE | 2019-07-15 13:39 | Anesthesiology Consultation ---
Date of Service July 15, 2019 Assessment & Plan (1) Encounter for pre-operative examination: CHECK BSG AM DOS Chart Review Chart Review: Acceptable Risk for Surgery (PENDING SURGEON-ORDERED PCP (08/09)AND CARDIO (08/04) CLEARANCES) and Patient seen in Pre Admission Testing Teaching & Discussion Instructed NPO after midnight before surgery, except medications with 15 cc of water. Medication instructions provided according to the PAT guidelines. History Surgery Operation Date: 08/17/19 07:45 Proposed Procedures p L3-S1 Decompression Fusion, Spinal Cord Monitoring - Jose Dela Cruz DO Height/Weight Height: 5 ft 9 in Weight: 102.7 kg Allergies Allergy/AdvReac Type Severity Reaction Status Date / Time No Known Allergies Allergy Verified 07/08/19 15:40 Medications Home Medications Medication Instructions Recorded Confirmed Last Taken acetaminophen [Tylenol Extra 1,000 mg PO Q6H PRN 07/08/19 07/08/19 Unknown Strength] aspirin [Aspir-81] 81 mg PO QAM 07/08/19 07/08/19 Unknown atorvastatin 80 mg PO PM 07/08/19 07/08/19 Unknown cholecalciferol (vitamin D3) 2,000 unit PO QAM 07/08/19 07/08/19 Unknown [Vitamin D3] ezetimibe [Zetia] 10 mg PO QAM 07/08/19 07/08/19 Unknown metformin 500 mg PO QPM 07/08/19 07/08/19 Unknown ranolazine [Ranexa] 1,000 mg PO BID 07/08/19 07/08/19 Unknown warfarin 2 - 4 mg PO QPM 07/08/19 07/08/19 Unknown Past Medical History Medical History (Updated 07/16/19 @ 15:09 by Pineda Valente) Aortic stenosis S/P bioprosthetic AV. Echo 07/13/18 showed moderate and mild meryl- prosthetic regurgitation. PAKO 1.1cm2. MG 25.37 mmHg. CAD (coronary artery disease) Total of 5 cardiac stents. Most recent cath 6-7yrs ago. Chronic back pain TO RIGHT LEG Diabetes mellitus, type 2 PREDIABETES-ORAL MEDS Hiatal hernia Hyperlipidemia Hypertension Exercise / Class Metabolic Activity III < 4 Walking/Shop/Light housework (Denies CP or SOB with 1 FOS, but limited by back pain and LE weakness) Past Family History Family History Sister Family history of reaction to anesthesia PONV Mother Family history of diabetes mellitus Father Family history of diabetes mellitus Past Surgical History Surgical History History of arthroscopy RIGHT History of cardiac cath -TOTAL 5 STENTS-LAST CARDIAC CATH MORE THAN 6-7 YRS AGO [place] History of colonoscopy History of heart valve replacement [facility]R-2018 [facility] History of tooth extraction WISDOM TEETH History of total shoulder replacement Past Anesthesia History No Hx of Anesthesia Complications and No Family Hx of Anesthesia Complications History of PONV No Hx of PONV and No Hx of Motion Sickness Social History Smoking Status: Never smoker Do You Dip or Chew Tobacco: No (QUIT 5+ YRS AGO) Hx Alcohol Use: Yes Alcohol type: beer alcohol intake frequency: 0-2 drinks per day (1-2 daily) Hx Substance Use: No Review of Systems Pt denies any recent chest pain, shortness of breath, palpitations, cough, fever or URI. Physical Exam Vital Signs BP: 132/73 P: 57bpm SPO2: 98% RA T: 98.4 F R: 16 ENMT Mouth: + dental restorations (fillings only); no chipped teeth and no loose teeth Thyromental Distance: > or= 3.5 Finger Breadths (3.5) Mallampati Class: II Neck normal visual inspection and + facial hair (medium length goatee/mustache, pt am enable to shaving); neck extension not limited Respiratory normal respiratory effort Auscultation: lungs clear to auscultation bilaterally Cardiovascular Rate/Rhythm: regular rhythm and + bradycardic Heart Sounds: + murmur (II/ systolic, loudest at RSB) Testing Laboratory Results 07/15/19 14:02 07/15/19 14:02 PT 19.3 Seconds (9.0-12.0) H 07/15/19 14:02 INR 2.0 (0.9-1.1) H 07/15/19 14:02 APTT 33.9 Seconds (21.0-31.0) H 07/15/19 14:02 Urine Color Dark Yellow 07/15/19 Unknown Urine Appearance Clear (Clear) 07/15/19 Unknown Urine pH 5.0 (4.5-7.5) 07/15/19 Unknown Ur Specific [place] 1.026 (1.000-1.030) 07/15/19 Unknown Urine Protein Negative (Negative) 07/15/19 Unknown Urine Glucose (UA) Negative (Negative) 07/15/19 Unknown Urine Ketones Trace (Negative) H 07/15/19 Unknown Urine Nitrite Negative (Negative) 07/15/19 Unknown Ur Leukocyte Esterase Negative (Negative) 07/15/19 Unknown Blood Type A Positive 07/15/19 14:02 Antibody Screen NEGATIVE 07/15/19 14:02 Electrocardiogram Date: 07/15/19 Findings: + NSR @ (62bpm) Chest X-Ray Date: 07/15/19 Findings: + NAD Mild cardiac enlargement. Echocardiogram Date: 07/13/18 EF: 60% LV normal in size. Mild concentric LVH. Moderately abnormal LA volume (moderately dilated). Moderate . Mild aortic regurgitation. Peak/mean gradient across the AV is 38.19mmHg/25.37mmHg. There is meryl-prosthetic regurgitation f the bioprosthetic AV. Stress Test Date: 06/05/17 Exercise stress EKG is POSITIVE for ischemia at a workload of more than 7 METs. Cardiac Catheterization Date: 06/29/17 Left main: No angiographically significant disease LAD: Small caliber calcified vessel, luminal irregularities in the proximal and mid segment of the vessel, but no angiographically significant disease. Left circumflex: Small to moderate caliber vessel with mild luminal irregularities and no significant disease. RCA: This is a moderate to large caliber vessel There are stent in the midsegment of the vessel. There is mid segment in-stent 40% restenosis. To PDA which is a small vessel, has a mid segment 70% lesion. Severe aortic stenosis with a mean gradient of more than 40 mmHg dimensionless index of 0.2 and calculated PAKO 0.6. Plan: Referral to CT surgery for aortic valve replacement.
--- NOTE | 2019-07-15 14:45 | XRay Report ---
TWO VIEW CHEST CLINICAL HISTORY: Preoperative examination. FINDINGS: PA and lateral chest radiographs are compared to study dated 11/05/2016. The patient is stat us post midline sternotomy. The heart is mildly enlarged. The pulmonary vasculature is noncongested. There is mild bibasilar scarring/atelectasis. The lungs and pleural spaces are otherwise clear. There is no pneumothorax. The skeletal structures are osteopenic. The bony thorax appears intact. A right shoulder arthroplasty is in place. IMPRESSION: Mild cardiac enlargement with no active disease in the chest. ACT 112: Negative or not required by law. Results electronically sent 07/15/2019 2:43 PM to: Jose Dela Cruz DO Electronically signed by: Nabil Hernandez M.D. 07/15/2019 2:43 PM
[2019-07-15 14:54] LABS: Partial Thromboplastin Ratio 1.3; Partial Thromboplastin Time 33.9 Seconds (21.0-31.0); Prothrombin Time 19.3 Seconds (9.0-12.0)
[2019-07-15 14:56] LABS: Basophils # (auto) 0.01 K/uL (0-0.2); Basophils % (auto) 0.2 %; Eosinophils # (auto) 0.08 K/uL (0-0.5); Eosinophils % (auto) 1.9 %; Hematocrit (blood only) 41.6 % (42-52); Hemoglobin 14.3 g/dL (14.0-18.0); Immature Granulocytes # (auto) 0.01 K/uL (0.00-0.02); Immature Granulocytes % (auto) 0.2 %; Lymphocytes # (auto) 1.19 K/uL (1.2-3.4); Lymphocytes % (auto) 28.2 %; Mean Corpuscular Hemoglobin 32.5 pg (25-34); Mean Corpuscular Hgb Conc 34.4 g/dL (32-36); Mean Corpuscular Volume 94.5 fL (80-100); Monocytes # (auto) 0.54 K/uL (0.11-0.59); Monocytes % (auto) 12.8 %; Neutrophils # (auto) 2.39 K/uL (1.4-6.5); Neutrophils % (auto) 56.7 %; Platelet Count 172 K/uL (130-400); RDW Coefficient of Variation 12.6 % (11.5-14.5); RDW Standard Deviation 43.6 fL (36.4-46.3); White Blood Count 4.22 K/uL (4.8-10.8)
[2019-07-15 15:12] LABS: BUN Creatinine Ratio 13.7 (10-20); Calcium 8.6 mg/dl (8.5-10.1); Creatinine Clr Calc Pharmacy 102.8 ml/min; Est GFR (African American) 106.7; Est GFR (Non-African American) 92.1; Potassium 4.3 mmol/L (3.5-5.1)
[2019-07-15 16:13] LABS: Appearance Urine Clear (Clear); Bilirubin Urine Negative (Negative); Blood Urine Negative (Negative); Color Urine Dark Yellow; Glucose Urine UA Negative (Negative); Ketones Urine Trace (Negative); Leukocyte Esterase Urine Negative (Negative); Nitrite Urine Negative (Negative); Protein Urine Negative (Negative); Specific Gravity Urine 1.026 (1.000-1.030); Urobilinogen Urine Negative (Negative)
--- NOTE | 2019-07-15 22:24 | Electrocardiogram Report ---
Test Reason : Blood Pressure : / mmHG Vent. Rate : 062 BPM Atrial Rate : 062 BPM P-R Int : 148 ms QRS Dur : 088 ms QT Int : 442 ms P-R-T Axes : 081 081 084 degrees QTc Int : 448 ms Normal sinus rhythm Normal ECG No previous ECGs available Confirmed by Rafael Das ([id number]) on 07/15/2019 10:24:19 PM Referred By: Jose Dela Cruz Confirmed By:Rafael Das
--- NOTE | 2019-08-13 13:00 | History & Physical Report ---
Date of Service August 13, 2019 Assessment & Plan (1) Neurogenic claudication due to lumbar spinal stenosis: At this time the patient has had a steady decline in status accelerated over the past several weeks now with progressive pain and strength deficits. Subsequently we are recommending urgent lumbar decompression and fusion to avoid further strength deficits and hopefully with time resolution of his weakness and pain. He would require aggressive facetectomies to adequately decompress the nerve roots therefore making it necessary to fuse these levels. We will address L3-S1 decompression fusion. Risk benefits pros cons alternatives were outlined in detail. Present on Admission?: Yes History of Present Illness Chief Complaint: Bilateral leg pain and weakness Primary Care Provider: Tori Spangler This is a 63-year-old male who presents with progressive bilateral leg pain and weakness. He is noted significant change of the past several weeks. He is failed extensive course of nonoperative care including injections over the years. He now notes symptoms specifically with standing and walking affecting the bilateral gluteus quadriceps and complaints of bilateral slap foot. Allergies Allergy/AdvReac Type Severity Reaction Status Date / Time No Known Allergies Allergy Verified 07/08/19 15:40 Home Medications Home Medications Medication Instructions Recorded Confirmed Type acetaminophen [Tylenol Extra 1,000 mg PO Q6H PRN 07/08/19 07/08/19 History Strength] aspirin [Aspir-81] 81 mg PO QAM 07/08/19 07/08/19 History atorvastatin 80 mg PO PM 07/08/19 07/08/19 History cholecalciferol (vitamin D3) 2,000 unit PO QAM 07/08/19 07/08/19 History [Vitamin D3] ezetimibe [Zetia] 10 mg PO QAM 07/08/19 07/08/19 History metformin 500 mg PO QPM 07/08/19 07/08/19 History ranolazine [Ranexa] 1,000 mg PO BID 07/08/19 07/08/19 History warfarin 2 - 4 mg PO QPM 07/08/19 07/08/19 History Past Med/Surg History Medical History (Updated 08/13/19 @ 12:59 by Jose Dela Cruz DO) Aortic stenosis S/P bioprosthetic AV. Echo 07/13/18 showed moderate and mild meryl-prost hetic regurgitation. PAKO 1.1cm2. MG 25.37 mmHg. CAD (coronary artery disease) Total of 5 cardiac stents. Most recent cath 6-7yrs ago. Chronic back pain TO RIGHT LEG Diabetes mellitus, type 2 PREDIABETES-ORAL MEDS Hiatal hernia Hyperlipidemia Hypertension Surgical History History of arthroscopy RIGHT History of cardiac cath -TOTAL 5 STENTS-LAST CARDIAC CATH MORE THAN 6-7 YRS AGO [facility] History of colonoscopy History of heart valve replacement AVR-2018 [facility] History of tooth extraction WISDOM TEETH History of total shoulder replacement Family History Sister Family history of reaction to anesthesia PONV Mother Family history of diabetes mellitus Father Family history of diabetes mellitus Social History Preferred Language: Spanish Communication Ability: Effective Medical Donation Professional Required: No Beliefs That Will Affect Care: None Current Living Situation: Spouse and Family Other Information That Helps Us Care for You: No Feels Safe at Home: Yes Safety Concerns: Feels Safe At This Time Smoking Status: Never smoker Do You Dip or Chew Tobacco: No (QUIT 5+ YRS AGO) ; Second Hand Exposure: Yes (PARENTS SMOKED) ; Hx Alcohol Use: Yes Alcohol type: beer Hx Substance Use: No Physical Exam Physical Exam: On exam he is able to stand and ambulate short distance but quickly demonstrates discomfort. Bench exam reveals a 4/5 bilateral quadriceps and dorsiflexion. Sensory is markedly diminished bilateral lower extremities. Deep tendon reflexes are absent. Heart is regular rate and rhythm Lungs clear to auscultation. Results & Data Diagnostic Findings MRI lumbar spine demonstrates evidence of multilevel spondylosis with evidence of disc herniation at L3-4 and L4-5. There is retrolisthesis L5-S1. Axillary views demonstrate severe central lateral recess stenosis right greater than left at L3-4, severe subarticular lateral recess disease at L4-5 moderate at L5-S1.
[~2019-08-23 07:50] MED LIST changes: -ACET-1256 PO; -ASPI81TA28 PO; -ATOR-26 PO; -BUPIVACAINE/EPINEPHRINE 0.25% 1:200,000 30 ML VIAL ONE; -CARV3.122 PO; -CEFAZOLIN 2000 MG/60 ML D5W 60 ML IV SCH; +CEFAZOLIN 2000MG 2,000 MG/15 ML SYR IV SCH; -CLONIDINE HCL 100 MCG/ML SYRINGE ONE; -CLOP1TAB15 PO; -EZET10TA63 PO; -FAMOTIDINE 20 MG TAB PO SCH; -GABAPENTIN 300 MG CAP PO SCH; +GABAPENTIN 600 MG DOSE PO SCH; -LACTATED RINGER'S 1000ML 1,000 ML IV SCH; -LACTATED RINGER'S 1000ML IV SCH; +LR 15ML/HR IV SCH; -METF-384 PO; -METOCLOPRAMIDE HCL 10 MG TAB PO SCH; -RANO1000 PO; -ROPIVACAINE 0.5% 5 MG/ML 30 ML VIAL ONE; +SODIUM CHLORIDE 0.9% 250 ML IV PRN; -TRIA75TA53 PO
[2019-08-23] MEDS ORDERED: fentaNYL citrate 100 MCG/2 ML VIAL IV PRN (08:44)
[2019-08-23] MEDS ORDERED: HYDROmorphone INJ 1 MG/ML SYRINGE IV PRN ×2 (08:44→16:07)
[2019-08-23] MEDS ORDERED: ONDANSETRON INJ 2 MG/ML 2 ML VIAL IV PRN ×2 (08:44→16:07)
[2019-08-23] MEDS ORDERED: ATROPINE SULFATE 0.1 MG/ML 10ML SYR IV PRN (08:44)
[2019-08-23] MEDS ORDERED: ePHEDrine sulfate 50 MG/ML AMP IV PRN (08:44)
[2019-08-23 09:09] LABS: Partial Thromboplastin Time 27.5 Seconds (21.0-31.0)
[2019-08-23] MEDS ORDERED: NEOSTIGMINE METHYLSULFATE 5 MG/5 ML SYR ONE (09:14)
[2019-08-23] MEDS ORDERED: LIDOCAINE HCL 2% 2 ML VIAL/AMP(20MG/ML) INFIL ONE ×2 (09:14→10:12)
[2019-08-23] MEDS ORDERED: GLYCOPYRROLATE 0.2 MG/ML VIAL ONE (09:14)
[2019-08-23] MEDS ORDERED: PROPOFOL IV EMULSION 10 MG/ML 20 ML VIAL IV ONE (09:14)
[2019-08-23] MEDS ORDERED: ONDANSETRON INJ 2 MG/ML 2 ML VIAL ONE ×2 (09:14→10:12)
[2019-08-23] MEDS ORDERED: DEXAMETHASONE SOD INJ 4 MG/ML VIAL ONE (09:14)
[2019-08-23] MEDS ORDERED: fentaNYL citrate 100 MCG/2 ML VIAL ONE (09:15)
[2019-08-23] MEDS ORDERED: MIDAZOLAM HCL 1 MG/ML 2ML VIAL ONE (09:15)
--- NOTE | 2019-08-23 10:06 | History & Physical Bridge Note ---
Date of Service August 23, 2019 History & Physical Bridge Note I have examined the patient, reviewed the History & Physical and in the interval since the performance of the History & Physical I have noted the following changes of clinical significance: no changes noted
[2019-08-23] MEDS ORDERED: BUPIVACAINE/EPINEPHRINE 0.5% MPF 1:200,000 10 ML VIAL ONE (10:27)
[2019-08-23] MEDS ORDERED: BACITRACIN INJ 50,000 UNIT VIAL ONE (10:27)
[2019-08-23] MEDS ORDERED: HYDROmorphone INJ 2 MG/ML SYR/VIAL ONE (11:29)
[2019-08-23] MEDS ORDERED: FLOSEAL HEMOSTATIC MATRIX 10ML TOP ONE (11:52)
--- NOTE | 2019-08-23 13:37 | Operative Report ---
Post Operative Report Pre & Post Diagnosis Operation Date: 08/23/19 09:45 Pre-Op Diagnosis: Spinal Stenosis, Lumbar Region without Neurogenic Claudication Post-Op Diagnosis: Spinal Stenosis, Lumbar Region without Neurogenic Claudication I identified the patient and participated in the time-out.: Yes Procedure Operation Date: 08/23/19 09:45 Actual Procedures #1 lumbar decompression with bilateral medial facetectomies and foraminotomies L2-3, L3-4, L4-5 and L5-S1. #2 posterior spinal fusion L3-4, L4-5 and L5-S1. #3 placement posterior segmental instrumentation from L3-S1. #4 interbody fusion L3-4 and L4-5. #5 placed a peek cage 12 x 26 mm at L3-4 and 14 x 26 mm at L5-S1. #6 placement of local harvested morselized autograft in the posterior lateral gutters per #7 placement infuse collagen sponge, master graft in the posterior lateral gutters and ostial amp interbody space. Surgeon Jose Dela Cruz, DO Cardiac Care Unit Nurse Marychuy Osei Estimated Blood Loss 350 Findings See Below Patient is 5 foot 9 inches tall weighing over 103 kg with a BMI in excess of 33. The patient's body habitus did add significant technical difficulty adding at least 40% increase in operative time. Specimens None Indications This is a 63-year-old male that presents with the above-mentioned diagnosis after noting a marked decline in status with progressive leg weakness right greater than left and with his severe underlying spinal stenosis we recommended urgent decompression and fusion. Description of Procedure Patient was met with identified informed consent obtained. Patient was then taken to the operative suite underwent intubation placed in the prone position on the Manuel table on top of the Allen frame all bony prominences well-padded eyes inspected to ensure no external pressure placed upon them. This point the lumbar spine was prepped and draped in normal sterile fashion. Sharp dissection with the assistance of Bovie cautery was performed down to and exposing the lamina and transverse processes of L3-L4-L5 and sacral ala bilaterally. From a caudal cephalad fashion complete laminectomy of L5 L4 L3 and partial laminectomy of L2 was performed including bilateral medial facetectomies and foraminotomies addressing severe spinal stenosis. Pedicle screws were then placed in L3-L4-L5 and S1 levels bilaterally with assistance of fluoroscopy and appropriately sized magui placed. Believe a transforaminal approach on the right complete discectomy of L4-5 was performed endplates curetted to subcortical bleeding bone and a 14 x 26 mm peek cage filled with osteo-bone graft tapped in position. Then proceeded to L3-[address] of a transforaminal approach on the right a complete discectomy was performed endplates coated to subcortical bleeding bone I did note evidence of a massive discrimination centrally at this level as well. I then placed a 12 x 26 mm peek cage filled with osteo-bone graft into position. The rods were then locked in final position bilaterally. The transverse processes of L3-L4-L5 and sacral ala burred to subcortical bleeding bone. Infuse collagen sponge master graft local autograft placed in the posterior lateral gutters. 15 round HARIS drain inserted. Incision was then closed with 1 Vicryl in the fascia 2-0 Vicryl subcutaneously and 4 Monocryl for final skin closure. Steri-Strips dressings placed. Patient will continue PACU stable condition. Please note Marychuy Osei was present at the entire procedure The patient positioning complex portions of the surgery and final skin closure. Lastly spinal cord monitoring was utilized that the procedure no changes noted. I attest to the content of the Intraoperative Record and any orders documented therein. Any exceptions are noted below.
--- NOTE | 2019-08-23 13:44 | Fluoroscopy Report ---
INTRAOPERATIVE RADIOGRAPHS CLINICAL HISTORY: L3-S1 spinal fusion. Fluoroscopy time: 23 seconds. FINDINGS: 2 spot fluoroscopic views of the lumbar spine are presented. There has been discectomy at L 3-L4 and L4-L5 with laminectomy and posterior fusion from L3-S1. Interpedicular screws are present at all levels. Orthopedic hardware appears intact. IMPRESSION: Intraoperative images from L3-S1 spinal fusion as above. Electronically signed by: Nabil Hernandez M.D. 08/23/2019 1:43 PM
--- NOTE | 2019-08-23 14:23 | Anesthesiology Progress Note ---
Date of Service August 23, 2019 Anesthesia Post Procedure Vital Signs Vital Signs: Temp Pulse Resp BP Pulse Ox 08/23/19 08:10 97.5 F L 68 18 173/98 H 99 Transfer of Care Handoff Completed per policy Notes Mental Status: alert / awake / arousable and participated in evaluation Patient Amnestic to Procedure: Yes Nausea / Vomiting: adequately controlled Pain: adequately controlled Airway Patency, RR, SpO2: stable & adequate BP & HR: stable & adequate Hydration State: stable & adequate Anesthetic Complications: no major complications apparent and Pt Satisfied with anesthetic care
[2019-08-23] MEDS ORDERED: FAMOTIDINE 20 MG TAB PO PRN (16:07)
[2019-08-23] MEDS ORDERED: ONDANSETRON 4 MG OD TAB PO PRN (16:07)
[2019-08-23] MEDS ORDERED: DO NOT ADMINISTER FLU VACCINE PRN (16:07)
[2019-08-23] MEDS ORDERED: MAGNESIUM HYDROXIDE SUSP 30 ML UDC PO PRN (16:07)
[2019-08-23] MEDS ORDERED: LORazepam 0.5 MG TAB PO PRN (16:07)
[2019-08-23] MEDS ORDERED: ACETAMINOPHEN 1,000 MG/100 ML VIAL IV PRN (16:07)
[2019-08-23] MEDS ORDERED: NALOXONE HCL 0.4 MG/1 ML VIAL/CARP IV PRN (16:07)
[2019-08-23] MEDS ORDERED: PROMETHAZINE HCL 12.5 MG in SODIUM CHLORIDE 0.9% 50 ML IV PRN (16:07)
[2019-08-23] MEDS ORDERED: DO NOT ADMINISTER PNEUMOCOCCAL VACCINE PRN (16:07)
[2019-08-23] MEDS ORDERED: TRAMADOL HCL 50 MG TABLET PO PRN (16:07)
[2019-08-23] MEDS ORDERED: bisacodyL 10 MG SUPP PR PRN (16:07)
[2019-08-23] MEDS ORDERED: LORazepam 0.5 MG/1 ML VIAL IV PRN (16:07)
[2019-08-23] MEDS ORDERED: ACETAMINOPHEN 500 MG TAB PO PRN (16:07)
[2019-08-23] MEDS ORDERED: ALUMINUM/MAGNESIUM SUSP 30 ML UDC PO PRN (16:07)
[2019-08-23] MEDS ORDERED: SOD PHOSPHATE/SOD BIPHOSPHATE ENEMA 132 ML BTL PR PRN (16:07)
[2019-08-23] MEDS ORDERED: METOCLOPRAMIDE HCL INJ 5 MG/ML 2 ML VIAL IV PRN (16:07)
[2019-08-23] MEDS ORDERED: HYDROmorphone INJ 0.5 MG/0.5 ML SYR IV PRN (16:07)
[2019-08-23] MEDS: SODIUM CHLORIDE 0.9% 1000ML 1,000 ML IV SCH ×2 (16:14→22:44)
[2019-08-23] MEDS: KETOROLAC 30 MG/ML VIAL IV SCH ×2 (17:42→21:50)
[2019-08-23] MEDS ORDERED: DEXTROSE 50% 50 ML SYRINGE IV PRN (17:52)
[2019-08-23] MEDS ORDERED: CARBOHYDRATES FOR HYPOGLYCEMIA PO PRN (17:52)
[2019-08-23] MEDS ORDERED: GLUCAGON FOR INJ 1 MG VIAL SQ PRN (17:52)
[2019-08-23] MEDS ORDERED: GLUCOSE 40% GEL 15 GM TUBE PO PRN (17:52)
[2019-08-23] MEDS ORDERED: GLUCOSE 10 TABS/TUBE PO PRN (17:52)
--- NOTE | 2019-08-23 17:52 | Consultation ---
Date of Consultation August 23, 2019 Assessment & Plan (1) Status post lumbar surgery: Post op day# 0 S/P L2-S1 decompression and L3-S1 fusion by Dr Lanie BARNARD #350ml Post op doing well -pain management per ortho -wound management per ortho -PT/OT as appropriate -DVT prophylaxis per ortho -incentive spirometry -monitor H&H for acute blood loss anemia; pre-op Hgb: 14 (2) Paroxysmal A-fib: On Coumadin CHADSVASC:3 Current regular rhythm on exam -Coumadin has been on hold since 08/09/2019 -Resume Coumadin when able per ortho spine (3) Aortic stenosis: S/P replacement with bioprosthetic valve in 2018 (4) Diabetes mellitus, type 2: A1c: 4.7 in 2017 per medical clearance PCP note -Hold metformin -Diabetic diet -Novolog sliding scale per protocol -A1c in AM (5) CAD (coronary artery disease): S/P stents No current CP or SOB -Continue atorvastatin, Ranexa DVT Prophylaxis -SCDs per ortho Disposition per primary service Follows with Dr Spangler in [place] for routine care Pt was seen and care coordinated with Dr John. See addendum Thank you for this consultation. We will follow the patient with you during their hospital stay. You can reach a [facility]/12 via pager @ [phone]. Supervising Physician Co-Signing Physician Notes I, Dr. Jaison John, have seen and examined the patient with physician catering administrative assistant and agree with the assessment On physical Exam General: no acute distress Lungs: breathing without distress, no crackles Heart: regular rate, rhythm sounds regular Abdomen soft, nontender, positive bowel sounds Urinary: has villalpando Back: back exam deferred because of recent surgery and discomfort Recommendations/Assessment and Plan S/P LUMBAR SURGERY Post-Op Diagnosis: Spinal Stenosis, Lumbar Region without Neurogenic Claudication Operation Date: 08/23/19 09:45 Actual Procedures (#1 lumbar decompression with bilateral medial facetectomies and foraminotomies L2-3, L3-4, L4-5 and L5-S1. #2 posterior spinal fusion L3-4, L4-5 and L5-S1. #3 placement posterior segmental instrumentation from L3-S1. #4 interbody fusion L3-4 and L4-5. #5 placed a peek cage 12 x 26 mm at L3-4 and 14 x 26 mm at L5-S1. #6 placement of local harvested morselized autograft in the posterior lateral gutters per #7 placement infuse collagen sponge, master graft in the posterior lateral gutters and ostial amp interbody spaces) -pain appears control, post-op wound care management as per orthopedics. -will need villalpando to be pulled and PT/OT PAROXYSMAL ATRIAL FIBRILLATION -in sinus rhythm -at discretion of orthopedic service when Coumadin should be resumed CORONARY ARTERY DISEASE WITH STENTS -no chest pain, continue home dose atorvastatin and Ranexa AORTIC STENOSIS WITH BIOPROSTHETIC VALVE DIABETES MELLITUS TYPE 2 WITHOUT HALF-WAY CURRENT USE OF INSULIN -hold home dose metformin for now and give sliding scale insulin as needed Agree with other assessment and plans as documented by physician catering administrative assistant My colleague Dr. Freed will by the hospitalist medicine consult starting on 08/24/2019 History of Present Illness Requesting Physician: Dr. Dela Cruz Reason for Consultation: Postop medical management Attending Physician: Jose Dela Cruz, DO History of Present Illness Pt is 63 y/o M with PMH aortic stenosis s/p replacement with bioprosthetic valve in 2018, paroxysmal atrial fibrillation on Coumadin, CAD s/p stents, DM II, HTN, HLD seen in medical consultation s/p L2-S1 decompression and L3-S1 fusion today by Dr. Dela Cruz. Postop patient reports doing well. Complains of some stiffness to back. Denies leg pains or current paresthesias. Denies nausea, vomiting, chest pain, shortness of breath. Has Villalpando catheter in place. Denies fever/chills, diaphoresis, REYNA, dizziness, syncope, vision changes, neck pain, palpitations, cough, sore throat, choking, otalgia, rhinorrhea, abdominal pain, extremity edema, rashes. Allergies Allergy/AdvReac Type Severity Reaction Status Date / Time No Known Allergies Allergy Verified 08/23/19 08:01 Home Medications Home Medications Medication Instructions Recorded Confirmed Type acetaminophen [Tylenol Extra 1,000 mg PO Q6H PRN 07/08/19 08/23/19 History Strength] aspirin [Aspir-81] 81 mg PO QAM 07/08/19 08/23/19 History atorvastatin 80 mg PO PM 07/08/19 08/23/19 History cholecalciferol (vitamin D3) 2,000 unit PO QAM 07/08/19 08/23/19 History [Vitamin D3] ezetimibe [Zetia] 10 mg PO QAM 07/08/19 08/23/19 History metformin 500 mg PO QPM 07/08/19 08/23/19 History ranolazine [Ranexa] 1,000 mg PO BID 07/08/19 08/23/19 History warfarin 2 - 4 mg PO QPM 07/08/19 08/23/19 History Patient History Medical History (Updated 08/23/19 @ 17:54 by Marina Dickey PA-C) Aortic stenosis S/P bioprosthetic AV. Echo 07/13/18 showed moderate and mild meryl- prosthetic regurgitation. PAKO 1.1cm2. MG 25.37 mmHg. CAD (coronary artery disease) Total of 5 cardiac stents. Most recent cath 6-7yrs ago. Chronic back pain TO RIGHT LEG Diabetes mellitus, type 2 PREDIABETES-ORAL MEDS Hiatal hernia Hyperlipidemia Hypertension Paroxysmal A-fib Surgical History (Updated 08/23/19 @ 17:54 by Marina Dickey PA-C) History of arthroscopy RIGHT History of cardiac cath -TOTAL 5 STENTS-LAST CARDIAC CATH MORE THAN 6-7 YRS AGO [facility] History of colonoscopy History of heart valve replacement AVR-2017 [facility] History of tooth extraction WISDOM TEETH History of total shoulder replacement Family History Sister Family history of reaction to anesthesia PONV Mother Family history of diabetes mellitus Father Family history of diabetes mellitus Social History Preferred Language: Frisian Communication Ability: Effective Institutional Cook Required: No Beliefs That Will Affect Care: None Current Living Situation: Spouse and Family Other Information That Helps Us Care for You: No Feels Safe at Home: Yes Safety Concerns: Feels Safe At This Time Smoking Status: Never smoker Do You Dip or Chew Tobacco: No (QUIT 5+ YRS AGO) ; Second Hand Exposure: Yes (PARENTS SMOKED) ; Hx Alcohol Use: Yes Alcohol type: beer Hx Substance Use: No Review of Systems Review of Systems: All systems reviewed & are unremarkable except as noted in HPI & below Physical Exam Physical Exam: General: no distress, obese Head: normocephalic, atraumatic Eyes: PERRL, EOM's intact, conjunctiva non-injected, anicteric ENT: normal inspection external ears, nose, mucous membranes moist Neck: supple, trachea midline, non-tender Lungs: clear, no respiratory distress, no wheezing/rhonchi/rales CV: RRR, +systolic murmur, no pretibial edema Abd: normal BS, soft, non-tender Back: surgical dressing dry and intact Ext: no cyanosis, no calf tenderness; sensation to light touch intact, distal pulses intact, pedal pushes and pulls intact bilaterally Neuro: A&O x 3, no focal deficits noted, normal affect Skin: warm, dry Results & Data ([facility]) Vital Signs (Past 12 Hours) Vital Signs Temp Pulse Pulse Pulse Resp BP BP 08/23/19 16:50 36.7 C 75 16 114/65 08/23/19 16:18 36.6 C 65 16 103/61 08/23/19 15:35 76 15 101/67 08/23/19 15:20 78 13 100/60 08/23/19 15:05 80 12 94/66 L 08/23/19 14:50 75 13 108/61 08/23/19 14:40 36.8 C 73 12 101/63 08/23/19 14:30 72 15 94/60 L 08/23/19 14:20 71 13 101/56 L 08/23/19 14:14 36.0 C L 71 12 88/53 L 08/23/19 08:10 36.4 C L 68 18 173/98 H Pulse Ox 08/23/19 16:50 100 08/23/19 16:18 99 08/23/19 15:35 98 08/23/19 15:20 97 08/23/19 15:05 98 08/23/19 14:50 97 08/23/19 14:40 96 08/23/19 14:30 92 08/23/19 14:20 99 08/23/19 14:14 99 08/23/19 08:10 99
[2019-08-23] MEDS: RANOLAZINE 500 MG ER TAB PO SCH (20:03)
[2019-08-23] MEDS: DOCUSATE SODIUM/SENNA 50/8.6MG TAB PO SCH (20:03)
[2019-08-23] MEDS: ATORVASTATIN 40 MG TAB PO SCH (20:03)
[2019-08-23] MEDS: INSULIN ASPART 100 UNITS/ML 3 ML PEN SC SCH (20:46)
[2019-08-24] MEDS: CEFAZOLIN 2000MG 2,000 MG/15 ML SYR IV SCH ×4 (00:05→14:29)
[2019-08-24] MEDS: OXYCODONE HCL IR 5 MG TAB (IMMEDIATE RELEASE) PO PRN ×2 (00:10→20:49)
[2019-08-24] MEDS: KETOROLAC 30 MG/ML VIAL IV SCH ×2 (04:37→11:04)
[2019-08-24 05:53] LABS: Hematocrit (blood only) 32.2 % (42-52); Hemoglobin 10.9 g/dL (14.0-18.0); Immature Granulocytes # (auto) 0.03 K/uL (0.00-0.02); Immature Granulocytes % (auto) 0.3 %; Lymphocytes # (auto) 0.39 K/uL (1.2-3.4); Mean Corpuscular Hemoglobin 30.9 pg (25-34); Mean Corpuscular Hgb Conc 33.9 g/dL (32-36); Mean Corpuscular Volume 91.2 fL (80-100); Mean Platelet Volume 10.9 fL (7.4-10.4); Monocytes # (auto) 0.74 K/uL (0.11-0.59); Monocytes % (auto) 7.6 %; Neutrophils # (auto) 8.64 K/uL (1.4-6.5); Neutrophils % (auto) 88.1 %; Platelet Count 131 K/uL (130-400); RDW Coefficient of Variation 12.2 % (11.5-14.5); Red Blood Count 3.53 M/uL (4.7-6.1)
[2019-08-24 06:04] LABS: Estimated Average Glucose 91 mg/dl; Hemoglobin A1C 4.8 % (4.5-5.6)
[2019-08-24 06:20] LABS: BUN Creatinine Ratio 18.3 (10-20); Calcium 7.9 mg/dl (8.5-10.1); Creatinine Clr Calc Pharmacy 100.9 ml/min; Est GFR (African American) 105.7; Est GFR (Non-African American) 91.2; Potassium 4.7 mmol/L (3.5-5.1)
[2019-08-24] MEDS: SODIUM CHLORIDE 0.9% 1000ML 1,000 ML IV SCH (06:30)
[2019-08-24] MEDS: POLYETHYLENE (MIRALAX) 17 GM PACK PO SCH ×3 (06:34→18:11)
[2019-08-24] MEDS: ASPIRIN 81 MG ECTAB PO SCH (08:56)
[2019-08-24] MEDS: RANOLAZINE 500 MG ER TAB PO SCH ×2 (08:56→20:43)
[2019-08-24] MEDS: EZETIMIBE 10 MG TABLET PO SCH (08:56)
[2019-08-24] MEDS: INSULIN ASPART 100 UNITS/ML 3 ML PEN SC SCH ×4 (08:58→22:13)
--- NOTE | 2019-08-24 09:33 | Orthopedic Progress Note ---
Date of Service August 24, 2019 Assessment & Plan (1) Neurogenic claudication due to lumbar spinal stenosis: At this time we will initiate physical therapy monitor his HARIS output anticipate discharge home in the next few days. Present on Admission?: Yes Admission and Anticipated Discharge Date Admission Date: August 23, 2019 Subjective Patient's back pain is controlled he feels his leg symptoms are improved. He was able to ambulate last evening. Physical Exam Physical Exam: On exam he is in the chair at the bedside. He has reasonable strength testing lower extremities. Results & Data ([facility]) Vital Signs (Past 12 Hours) Vital Signs Temp Pulse Resp BP Pulse Ox 08/24/19 07:34 36.6 C 71 18 105/67 99 08/24/19 03:50 36.5 C 69 16 96/58 L 97 08/23/19 23:00 36.6 C 68 16 96/61 L 95
[2019-08-24] MEDS: ACETAMINOPHEN 500 MG TAB PO SCH ×2 (10:43→14:29)
[2019-08-24] MEDS: CeleBREX 200 MG CAP PO SCH ×2 (10:46→14:29)
[2019-08-24] MEDS: GABAPENTIN 600 MG DOSE PO SCH ×2 (10:47→14:29)
[2019-08-24] MEDS: LR 15ML/HR IV SCH ×2 (10:47→14:29)
--- NOTE | 2019-08-24 17:39 | Hospitalist Progress Note ---
Date of Service August 24, 2019 Assessment & Plan (1) Status post lumbar surgery: S/P day#1 L2-S1 decompression and L3-S1 fusion performed by Dr Dela Cruz No post op complication Post op doing well Continue pain control Incentive spirometry Continue PT/OT Continue monitor CBC (2) Paroxysmal A-fib: Coumadin on hold CHADSVASC:3 Current regular rhythm on exam Coumadin has been on hold since 08/09/2019 Case discussed with Ortho about to resume coumadin Will resume Coumadin tomorrow since high output on HARIS drainage (3) Aortic stenosis: S/P replacement with bioprosthetic valve in 2018 (4) Diabetes mellitus, type 2: Most recent Hba1c 4.8 Continue to hold metformin On Novolog sliding scale per protocol Continue monitor BS (5) CAD (coronary artery disease): S/P stents No current CP or SOB Continue atorvastatin, Ranexa DVT Prophylaxis SCDs per ortho Disposition as per Ortho Thank you for this consultation. We will follow the patient with you during their hospital stay. You can reach a member of the [facility] 02/12 via pager @ [phone]. Admission and Anticipated Discharge Date Admission Date: August 23, 2019 Subjective Pt was seen and examined Sitting in bed with no distress Pt said that he feels ok Denies any chest pain, palpitation, dizziness and SOB Physical Exam Physical Exam: General- No acute distress Head- atraumatic Eyes- PERRL, EOMI, ENT- oropharynx clear Neck- supple, no JVD Lungs- clear to auscultation Heart- +murmur Abdomen- normal bowel sounds, soft, nontender Extremities- no calf tenderness Neuro- alert, oriented x 3; PERRL, EOMI; no facial palsy; no dysarthria Skin- warm & dry Results & Data Results & Data ([facility]) Vital Signs (Past 12 Hours) Vital Signs Temp Pulse Resp BP Pulse Ox 08/24/19 15:17 36.6 C 72 16 119/73 99 08/24/19 07:34 36.6 C 71 18 105/67 99
[2019-08-24] MEDS: ATORVASTATIN 40 MG TAB PO SCH (20:43)
[2019-08-24] MEDS: DOCUSATE SODIUM/SENNA 50/8.6MG TAB PO SCH (20:43)
[2019-08-25] MEDS: POLYETHYLENE (MIRALAX) 17 GM PACK PO SCH ×4 (00:06→17:48)
[2019-08-25] MEDS: OXYCODONE HCL IR 5 MG TAB (IMMEDIATE RELEASE) PO PRN ×3 (05:01→19:14)
[2019-08-25] MEDS: EZETIMIBE 10 MG TABLET PO SCH (09:04)
[2019-08-25] MEDS: RANOLAZINE 500 MG ER TAB PO SCH ×2 (09:04→20:06)
[2019-08-25] MEDS: ASPIRIN 81 MG ECTAB PO SCH (09:04)
[2019-08-25] MEDS: INSULIN ASPART 100 UNITS/ML 3 ML PEN SC SCH ×4 (09:06→21:08)
--- NOTE | 2019-08-25 10:57 | Orthopedic Progress Note ---
Date of Service August 25, 2019 Assessment & Plan (1) Neurogenic claudication due to lumbar spinal stenosis: This time we will continue physical therapy monitor his HARIS output anticipate possible discharge home tomorrow. Present on Admission?: Yes Admission and Anticipated Discharge Date Admission Date: August 23, 2019 Subjective Back pain controlled leg symptoms improved. Physical Exam Physical Exam: On exam he appears comfortable. He has good strength testing lower extremities. Results & Data ([facility]) Vital Signs (Past 12 Hours) Vital Signs Temp Pulse Resp BP Pulse Ox 08/25/19 07:18 36.6 C 75 18 112/72 97 08/24/19 23:25 36.6 C 76 18 112/70 97
[2019-08-25] MEDS ORDERED: MAGNESIUM HYDROXIDE SUSP 30 ML UDC PO ONE (11:01)
--- NOTE | 2019-08-25 14:30 | Hospitalist Progress Note ---
Date of Service August 25, 2019 Assessment & Plan (1) Status post lumbar surgery: S/P day#2 L2-S1 decompression and L3-S1 fusion performed by Dr Dela Cruz Continue management as per Ortho No post op complication Continue pain control as per Ortho Incentive spirometry Continue PT/OT Clinically better and remains stable (2) Paroxysmal A-fib: Coumadin on hold CHADSVASC:3 Current regular rhythm on exam Coumadin has been on hold since 08/09/2019 Case discussed with Ortho about to resume coumadin Will resume Coumadin tomorrow since high output on HARIS drainage Coumadin has been started from today (3) Aortic stenosis: S/P replacement with bioprosthetic valve in 2018 No acute cardiac symptoms (4) Diabetes mellitus, type 2: Most recent Hba1c 4.8 Continue to hold metformin On Novolog sliding scale per protocol Continue monitor BS (5) CAD (coronary artery disease): S/P stents No current CP or SOB Continue atorvastatin, Ranexa DVT Prophylaxis SCDs per ortho Disposition as per Ortho Medically stable Admission and Anticipated Discharge Date Admission Date: August 23, 2019 Subjective 08/25/2019 The patient was seen and examined in medical floor He has been in stable and complains to have some back pain and constipation He is willing to go back home tomorrow We will give additional laxatives for bowel movement Review of Systems Review of Systems: All systems reviewed and are unremarkable except as noted below Musculoskeletal: + back pain No radiculopathy Physical Exam Physical Exam: Lying in bed comfortably Constitutional: well developed, well nourished, + ill appearing and + obese; no acute distress Eyes: PERRL, conjunctivae normal, anicteric sclerae ENMT: external ear and nose normal, oropharynx normal Neck: trachea midline, no thyromegaly Respiratory: normal respiratory effort; no respiratory distress Auscultation: lungs clear to auscultation bilaterally Cardiovascular: Rate/Rhythm: regular rate and regular rhythm Heart Sounds: no murmur Gastrointestinal (Abdomen): Inspection/Auscultation: abdomen normal to inspection and normal bowel sounds Percussion/Palpation: abdomen soft; abdomen nontender Musculoskeletal: Back pain with movement Results & Data Results & Data ([facility]) Vital Signs (Past 12 Hours) Vital Signs Temp Pulse Resp BP Pulse Ox 08/25/19 07:18 36.6 C 75 18 112/72 97 Medications Administered Current Inpatient Medications Acetaminophen (Tylenol) 1,000 mg PO Q8H PRN PRN Reason: MILD Pain Scale 1,2,3 & Pre PT Stop: 09/22/19 16:06 Al Hydrox/Mg Hydrox/Simethicone (Maalox) 30 ml PO Q6H PRN PRN Reason: Dyspepsia Stop: 09/22/19 16:06 Aspirin (Ecotrin [facility]ctab) [facility] [place] Stop: 09/23/19 08:59 Last Admin: 08/25/19 09:04 Dose: 81 mg Documented by: Atorvastatin Calcium (Lipitor) 80 mg PO PM [facility] Stop: 09/22/19 20:59 Last Admin: 08/24/19 20:43 Dose: 80 mg Documented by: Bisacodyl (Dulcolax) 10 mg MS DAILY PRN PRN Reason: Constipation Stop: 09/22/19 16:06 Dextrose (Dextrose 50%) 25 - 50 ml IV UD PRN; Protocol PRN Reason: Hypoglycemia Protocol Stop: 09/22/19 17:51 Diphenhydramine HCl (Benadryl Capsule) 25 mg PO Q6H PRN PRN Reason: Allergic Rhinitis/Insomnia Stop: 09/22/19 16:06 Last Admin: 08/24/19 20:49 Dose: 25 mg Documented by: Ezetimibe (Zetia) [facility] [place] Stop: 09/23/19 08:59 Last Admin: 08/25/19 09:04 Dose: 10 mg Documented by: Famotidine (Pepcid) 20 mg PO Q12H PRN PRN Reason: Dyspepsia Stop: 09/22/19 16:06 Glucagon (Glucagen) 1 mg SQ UD PRN; Protocol PRN Reason: Hypoglycemia Protocol Stop: 09/22/19 17:51 Glucose (Dex4 Glucose) 4 - 8 tabs PO UD PRN; Protocol PRN Reason: Hypoglycemia Protocol Stop: 09/22/19 17:51 Glucose (Glucose 40%) 15 - 30 gm PO UD PRN; Protocol PRN Reason: Hypoglycemia Protocol Stop: 09/22/19 17:51 Hydromorphone HCl (Dilaudid) 0.5 mg IV Q3H PRN PRN Reason: MOD pain (scale 4-6) & Pre PT Stop: 09/06/19 16:06 Hydromorphone HCl (Dilaudid) 1 mg IV Q3H PRN PRN Reason: severe pain (scale 7-10) Stop: 09/06/19 16:06 Last Admin: 08/25/19 06:00 Dose: 1 mg Documented by: Hydroxyzine HCl (Vistaril) 25 mg PO Q8H PRN PRN Reason: Anxiety Stop: 09/22/19 16:06 Sodium Chloride (Nss) 250 mls @ 15 mls/hr IV .[id number] PRN PRN Reason: For Transfusion Stop: 09/16/19 04:59 Lorazepam (Ativan) 0.5 mg in 1 mls @ 0.5 mls/min IV Q8H PRN PRN Reason: Sedation/Anxiety Stop: 09/22/19 16:06 Promethazine HCl 12.5 mg/ (Sodium Chloride) 50.5 mls @ 204 mls/hr IV Q6H PRN PRN Reason: Nausea &/or Vomiting Stop: 09/22/19 16:06 Influenza Virus Vaccine Quadrival (Flu Vaccine, Do Not Administer) 1 ea N/A PRN PRN PRN Reason: Notification Stop: 09/22/19 16:06 Insulin Aspart (Novolog Flexpen) 0 units SC ACHS RHINA Stop: 09/22/19 20:59 Last Admin: 08/25/19 13:24 Dose: Not Given Documented by: Lorazepam (Ativan) 0.5 mg PO Q8H PRN PRN Reason: Sedation/Anxiety Stop: 09/22/19 16:06 Magnesium Hydroxide (Milk Of Magnesia) 30 ml PO DAILY PRN PRN Reason: Constipation Stop: 09/22/19 16:06 Metoclopramide HCl (Reglan) 10 mg IV Q6H PRN PRN Reason: Nausea &/or Vomiting Stop: 09/22/19 16:06 Miscellaneous (Carbohydrates For Hypoglycemia) 15 - 30 gm PO UD PRN PRN Reason: Hypoglycemia Protocol Stop: 09/22/19 17:51 Naloxone HCl (Narcan) 0.1 mg IV Q5M PRN; Protocol PRN Reason: Oversedation/Resp Depression Stop: 09/22/19 16:06 Ondansetron HCl (Zofran) 4 mg IV Q6H PRN PRN Reason: Nausea &/or Vomiting Stop: 09/22/19 16:06 Ondansetron HCl (Zofran Odt) 4 mg PO Q6H PRN PRN Reason: Nausea Stop: 09/22/19 16:06 Oxycodone HCl (Roxicodone Immediate Rel) 5 - 10 mg PO Q4H PRN PRN Reason: Moderate-Severe Pain & Pre PT Stop: 09/06/19 16:06 Last Admin: 08/25/19 12:20 Dose: 10 mg Documented by: Pneumococcal Polyvalent Vaccine (Pneumococcal Vacc, Do Not Administer) 1 ea N/A PRN PRN PRN Reason: Notification Stop: 09/22/19 16:06 Polyethylene Glycol (Miralax Powder Packet) 17 gm PO Q6 [facility] Stop: 09/23/19 05:59 Last Admin: 08/25/19 12:20 Dose: 17 gm Documented by: Ranolazine (Ranexa) 1,000 mg PO BID [facility] Stop: 09/22/19 20:59 Last Admin: 08/25/19 09:04 Dose: 1,000 mg Documented by: Senna/Docusate Sodium (Senokot S) 2 tab PO HS [facility] Stop: 09/22/19 20:59 Last Admin: 08/24/19 20:43 Dose: 2 tab Documented by: Sodium Biphosphate/Sodium Phosphate (Fleet Enema) 132 ml MS ONE PRN PRN Reason: Constipation Stop: 09/22/19 16:06 Tramadol HCl (Ultram) 50 - 100 mg PO Q4H PRN PRN Reason: Moderate-Severe Pain & Pre PT Stop: 09/22/19 16:06 Warfarin Sodium (Coumadin) 4 mg PO DAILY@1600 [facility] Stop: 09/24/19 15:59
[2019-08-25] MEDS ORDERED: WARFARIN SOD 4 MG TAB PO SCH (16:00)
[2019-08-25] MEDS: DOCUSATE SODIUM/SENNA 50/8.6MG TAB PO SCH (20:06)
[2019-08-25] MEDS: ATORVASTATIN 40 MG TAB PO SCH (20:07)
[2019-08-26] MEDS: OXYCODONE HCL IR 5 MG TAB (IMMEDIATE RELEASE) PO PRN ×3 (00:57→13:16)
[2019-08-26] MEDS: RANOLAZINE 500 MG ER TAB PO SCH (08:03)
[2019-08-26] MEDS: ASPIRIN 81 MG ECTAB PO SCH (08:03)
[2019-08-26] MEDS: EZETIMIBE 10 MG TABLET PO SCH (08:03)
[2019-08-26 08:28] LABS: Basophils # (auto) 0.02 K/uL (0-0.2); Basophils % (auto) 0.2 %; Eosinophils # (auto) 0.05 K/uL (0-0.5); Eosinophils % (auto) 0.6 %; Hematocrit (blood only) 30.2 % (42-52); Immature Granulocytes # (auto) 0.03 K/uL (0.00-0.02); Immature Granulocytes % (auto) 0.3 %; Lymphocytes # (auto) 1.45 K/uL (1.2-3.4); Lymphocytes % (auto) 16.3 %; Mean Corpuscular Hemoglobin 31.1 pg (25-34); Mean Corpuscular Hgb Conc 33.1 g/dL (32-36); Mean Corpuscular Volume 93.8 fL (80-100); Mean Platelet Volume 10.4 fL (7.4-10.4); Monocytes # (auto) 1.33 K/uL (0.11-0.59); Neutrophils # (auto) 6.01 K/uL (1.4-6.5); Neutrophils % (auto) 67.6 %; Platelet Count 163 K/uL (130-400); RDW Coefficient of Variation 12.5 % (11.5-14.5); RDW Standard Deviation 43.1 fL (36.4-46.3); Red Blood Count 3.22 M/uL (4.7-6.1); White Blood Count 8.89 K/uL (4.8-10.8)
[2019-08-26] MEDS: INSULIN ASPART 100 UNITS/ML 3 ML PEN SC SCH ×2 (08:30→12:30)
--- NOTE | 2019-08-26 08:43 | Discharge Summary ---
Date of Service August 26, 2019 Admission HPI Per Admitting Provider This is a 63-year-old male who presents with progressive bilateral leg pain and weakness. He is noted significant change of the past several weeks. He is failed extensive course of nonoperative care including injections over the years. He now notes symptoms specifically with standing and walking affecting the bilateral gluteus quadriceps and complaints of bilateral slap foot. Principal Diagnosis Lumbar spinal stenosis with neurogenic claudication Discharge Data Allergies Allergy/AdvReac Type Severity Reaction Status Date / Time No Known Allergies Allergy Verified 08/23/19 08:01 Consultations 08/23/19 16:07 Consult Case Management - Discharge Planning Routine Consult Hospitalist Routine Procedures Performed Operation Date: 08/23/19 09:45 Actual Procedures p L3-S1 Decompression Fusion, Interbody at L3-L4 and L4-L5 Spinal Cord Monitoring(Not Applicable) - Jose Dela Cruz DO Ordered Studies 08/23/19 09:45 FL fluoroscopy <1hr Routine FL lumbar spine 2-3V Routine Hospital Course (1) Neurogenic claudication due to lumbar spinal stenosis: Patient wants multilevel lumbar decompression fusion tolerated this well was taken to orthopedic for postoperative. Postop day 1 he felt his leg pain improved. He noticed improvement in his strength as he was able to ambulate the halls. This progressed over his hospital stay. HARIS drain decreasing appropriately. Pain well controlled. Excellent strength testing on his last day of admission. Separately discharged home. Discharge orders instructions from the chart for further view. Total Time Total Time Spent Total Time Spent (In Minutes): 20 minutes Discharge Plan Discharge Items Patient Disposition: Home - Self-Care Reason For Visit: Spinal Stenosis, Lumbar Region without Neurogenic Discharge Diagnosis: Severe lumbar spinal stenosis Activity: As commented below Non-emergency contact: Primary Care Provider Call non-emergency contact if: you have any medication questions Follow-up/Referrals: Tori Spangler M.D. [Primary Care Provider] - Diet: Regular Addtl Attending Provider Instructions: ACTIVITY RECOMMENDATIONS: SELF CARE INSTRUCTIONS AFTER THORACIC/LUMBAR FUSIONS 1. You may walk to your tolerance. It is good exercise for your legs and back. Expect some back and intermittent leg aches and pains. 2. You may perform "counter-top" level activities (make a sandwich, ashwini with a project, etc.). 3. No bending or lifting of more than 10 pounds or back twisting of any nature (roll like a log when turning in bed). 4. You may ride in a car for 20-30 minutes at a time. No driving until after your first visit with your doctor. 5. Frequent changes of position and restricting sitting to 30 minutes at a time will help limit the amount of back spasms and stiffness you may experience. 6. You may discontinue the use of ambulatory aids (cane, crutches, etc.) once your strength and confidence allow. 7. You may management internship the shower and let water strike your incision when you arrive home at least once daily. Do not take a tub bath, sit in a hot tub or go into a swimming pool until after your first recheck in the office. SPECIAL CARE INSTRUCTIONS: VERY IMPORTANT TO READ AND REVIEW A. Your surgical incision has been closed with a cosmetic suture under the skin that will dissolve in about 6 weeks. In 14 days, you can use a pair of clean scissors and cut the suture that is left outside of the skin at the ends of your incision. 1. The small skin tapes can be removed 7 days after surgery if they have not fallen off by that point. 2. You may keep the wound open to air as much as possible to promote healing after post-op day number 5 unless told otherwise by your doctor. 3. If you think the wound looks like it is becoming infected (redness or worsening drainage) and/or you are experiencing fever, chill or worsening back pain and muscle spasms, contact the office so that we may evaluate you as soon as possible. B. Complications are uncommon, but please contact us if you have any signs or symptoms of: 1. wound infection (fever higher than 102.5 degrees F, redness, separation of wound, drainage, or increasing pain from the incision) 2. blood clots in legs (pain, swelling, redness and warmth in legs) 3. urinary tract infection (fever higher than 102.5 degrees F, burning upon urination or increased frequency of urination) 4. nerve problems (inability to walk on your toes or heels, numbness, loss of bowel or bladder control) 5. any other symptoms that concern you C. Please call the office at if you have any concerns or questions about your operation or recovery. D. No smoking! Smoking drastically decreases the chance of a solid fusion. E. Do not take any anti-inflammatory medications (Indocin, Advil, Motrin, Aspirin, Naprosyn, etc.) as these may inhibit the chance of a solid fusion. Tylenol is okay to take for pain. MANAGING PAIN AFTER SPINAL SURGERY 1. Narcotic medication is intended for short-term use and will be provided for surgical pain. Surgical pain usually lasts for a period of 4-6 weeks. Narcotic medication includes Percocet, Vicodin, Darvocet, Tylenol #3 or Lortab. 2. Longer-term pain is more appropriately treated with non-narcotic medication such as Tylenol ES. 3. Muscle spasm is not appropriately treated with narcotics. Muscle relaxers such as Soma, Flexeril or Skelaxin can be used along with Tylenol ES. 4. Remember that we all live with some "aches and pains". This is not unusual or uncommon after an injury or as we get older. a. Back pain is expected and may include muscle spasms for 4 to 6 weeks after surgery. The pain should gradually improve. If the pain worsens for no apparent reason, please contact the office. b. Intermittent leg pain may also be experienced and should not be concerned about unless it worsens for no apparent reason. If so, please contact the office. 5. We will provide appropriate medication within the normal guidelines of their prescribed use. We will also be very cautious and aware of potential abuse and extended duration of patients' medication needs. a. Pain medications are for your comfort and to assist with sleep and rest so that the tissue can heal. They are not provided in order to return to normal activity and should not be used through the day. To do so or worsening pain at night can result from ongoing tissue damage and development of tolerance to the prescribed medicine. 6. Please allow 2-3 days to process refills. Prescriptions will not be mailed but must be picked up at the office. FOLLOW UP VISIT: Keep your scheduled follow-up appointment. Any questions, please call the office at . Pending Studies at Discharge: No Stand-Alone Forms: My Smarp, Smoking Cessation Medications and DC Order Prescriptions: New tramadol 50 mg tablet 50 mg PO Q6H PRN (Reason: pain, moderate) Qty: 30 RF: 0 oxycodone 5 mg tablet 5 mg PO Q6H PRN (Reason: pain, severe) Qty: 20 RF: 0 Continued acetaminophen [Tylenol Extra Strength] 500 mg Tablet 1,000 mg PO Q6H PRN (Reason: Pain) RF: 0 warfarin 2 mg Tablet 2 - 4 mg PO QPM RF: 0 cholecalciferol (vitamin D3) [Vitamin D3] 50 mcg (2,000 unit) Capsule 2,000 unit PO QAM RF: 0 metformin 500 mg Tablet 500 mg PO QPM RF: 0 atorvastatin 80 mg Tablet 80 mg PO PM RF: 0 aspirin [Aspir-81] 81 mg Tablet,Delayed Release (Dr/Ec) 81 mg PO QAM RF: 0 ezetimibe [Zetia] 10 mg Tablet 10 mg PO QAM RF: 0 ranolazine [Ranexa] 1,000 mg Tablet Extended Release 12 Hr 1,000 mg PO BID RF: 0 Discharge Orders: Discharge Order (Routine); Ordered 08/26/19 Ordered By: Jose Dela Cruz Admission Data Admit Date/Time: 08/23/19 14:26 Attending Provider: Jose Dela Cruz Admit Provider: Jsoe Dela Cruz Primary Care Provider: Tori Spangler Other Providers: Jaison John ; Maryanne Freed ; [place]
[2019-08-26 08:52] LABS: BUN Creatinine Ratio 13.9 (10-20); Calcium 8.2 mg/dl (8.5-10.1); Creatinine Clr Calc Pharmacy 85.6 ml/min; Est GFR (African American) 86.8; Est GFR (Non-African American) 74.8
--- NOTE | 2019-08-26 11:45 | Hospitalist Progress Note ---
Date of Service August 26, 2019 Assessment & Plan (1) Status post lumbar surgery: S/P day#3 L2-S1 decompression and L3-S1 fusion performed by Dr Dela Cruz Continue management as per Ortho No post op complication Continue pain control as per Ortho Incentive spirometry Continue PT/OT Clinically better and remains stable Will be discharged home from the primary service today Acute blood loss anemia Expected acute blood loss anemia in the setting of surgical event with EBL = 350ml and perioperative IV hydration = 2000ml Did not require any blood transfusion Expected to improve over time Hemoglobin is 10.0 as of 08/26/2019 (2) Paroxysmal A-fib: Coumadin on hold CHADSVASC:3 Current regular rhythm on exam Coumadin has been on hold since 08/09/2019 Case discussed with Ortho about to resume coumadin Will resume Coumadin tomorrow since high output on HARIS drainage Coumadin has been started from 08/25/2019 Patient was advised to make an appointment with coagulation clinic as early as Friday to check INR (3) Aortic stenosis: S/P replacement with bioprosthetic valve in 2018 No acute cardiac symptoms (4) Diabetes mellitus, type 2: Most recent Hba1c 4.8 Continue to hold metformin On Novolog sliding scale per protocol Continue monitor BS (5) CAD (coronary artery disease): S/P stents No current CP or SOB Continue atorvastatin, Ranexa DVT Prophylaxis SCDs per ortho Disposition as per Ortho Medically stable Admission and Anticipated Discharge Date Admission Date: August 23, 2019 Subjective 08/25/2019 The patient was seen and examined in medical floor He has been in stable and complains to have some back pain and constipation He is willing to go back home tomorrow We will give additional laxatives for bowel movement 08/26/2019 The patient was seen and examined in medical floor He complains today of some pain at the back without radiation Denies any other symptoms Review of Systems Review of Systems: All systems reviewed and are unremarkable except as noted below Musculoskeletal: + back pain No radiculopathy Physical Exam Physical Exam: Lying in bed comfortably Constitutional: well developed, well nourished, + ill appearing and + obese; no acute distress Eyes: PERRL, conjunctivae normal, anicteric sclerae ENMT: external ear and nose normal, oropharynx normal Neck: trachea midline, no thyromegaly Respiratory: normal respiratory effort; no respiratory distress Auscultation: lungs clear to auscultation bilaterally Cardiovascular: Rate/Rhythm: regular rate and regular rhythm Heart Sounds: + murmur (2/6 ejection systolic murmur over precordium) Gastrointestinal (Abdomen): Inspection/Auscultation: abdomen normal to inspection and normal bowel sounds Percussion/Palpation: abdomen soft; abdomen nontender Musculoskeletal: Back pain status post lumbar surgery Results & Data Results & Data ([facility]) Vital Signs (Past 12 Hours) Vital Signs Temp Pulse Pulse Resp BP Pulse Ox 08/26/19 09:03 36.7 C 76 72 16 111/67 97 08/26/19 07:33 36.7 C 72 16 111/67 97 08/26/19 00:11 36.9 C Laboratory Results Short CBC 08/26/19 Range/Units 08:17 WBC 8.89 (4.8-10.8) K/uL Hgb 10.0 L (14.0-18.0) g/dL Hct 30.2 L (42-52) % Plt Count 163 (130-400) K/uL BMP 08/26/19 08:17 Sodium 136 Potassium 4.0 Chloride 105 Carbon Dioxide 27 BUN 15 Creatinine 1.06 Glucose 104 H Calcium 8.2 L Medications Administered Current Inpatient Medications Acetaminophen (Tylenol) 1,000 mg PO Q8H PRN PRN Reason: MILD Pain Scale 1,2,3 & Pre PT Stop: 09/22/19 16:06 Last Admin: 08/26/19 04:28 Dose: 1,000 mg Documented by: Al Hydrox/Mg Hydrox/Simethicone (Maalox) 30 ml PO Q6H PRN PRN Reason: Dyspepsia Stop: 09/22/19 16:06 Aspirin (Ecotrin Ectab) 81 mg PO QAM [facility] Stop: 09/23/19 08:59 Last Admin: 08/26/19 08:03 Dose: 81 mg Documented by: Atorvastatin Calcium (Lipitor) 80 mg PO PM [facility] Stop: 09/22/19 20:59 Last Admin: 08/25/19 20:07 Dose: 80 mg Documented by: Bisacodyl (Dulcolax) 10 mg CO DAILY PRN PRN Reason: Constipation Stop: 09/22/19 16:06 Dextrose (Dextrose 50%) 25 - 50 ml IV UD PRN; Protocol PRN Reason: Hypoglycemia Protocol Stop: 09/22/19 17:51 Diphenhydramine HCl (Benadryl Capsule) 25 mg PO Q6H PRN PRN Reason: Allergic Rhinitis/Insomnia Stop: 09/22/19 16:06 Last Admin: 08/24/19 20:49 Dose: 25 mg Documented by: Ezetimibe (Zetia) 10 mg PO QAM RHINA Stop: 09/23/19 08:59 Last Admin: 08/26/19 08:03 Dose: 10 mg Documented by: Famotidine (Pepcid) 20 mg PO Q12H PRN PRN Reason: Dyspepsia Stop: 09/22/19 16:06 Glucagon (Glucagen) 1 mg SQ UD PRN; Protocol PRN Reason: Hypoglycemia Protocol Stop: 09/22/19 17:51 Glucose (Dex4 Glucose) 4 - 8 tabs PO UD PRN; Protocol PRN Reason: Hypoglycemia Protocol Stop: 09/22/19 17:51 Glucose (Glucose 40%) 15 - 30 gm PO UD PRN; Protocol PRN Reason: Hypoglycemia Protocol Stop: 09/22/19 17:51 Hydromorphone HCl (Dilaudid) 0.5 mg IV Q3H PRN PRN Reason: MOD pain (scale 4-6) & Pre PT Stop: 09/06/19 16:06 Hydromorphone HCl (Dilaudid) 1 mg IV Q3H PRN PRN Reason: severe pain (scale 7-10) Stop: 09/06/19 16:06 Last Admin: 08/25/19 06:00 Dose: 1 mg Documented by: Hydroxyzine HCl (Vistaril) 25 mg PO Q8H PRN PRN Reason: Anxiety Stop: 09/22/19 16:06 Sodium Chloride (Nss) 250 mls @ 15 mls/hr IV .[id number] PRN PRN Reason: For Transfusion Stop: 09/16/19 04:59 Lorazepam (Ativan) 0.5 mg in 1 mls @ 0.5 mls/min IV Q8H PRN PRN Reason: Sedation/Anxiety Stop: 09/22/19 16:06 Promethazine HCl 12.5 mg/ (Sodium Chloride) 50.5 mls @ 204 mls/hr IV Q6H PRN PRN Reason: Nausea &/or Vomiting Stop: 09/22/19 16:06 Influenza Virus Vaccine Quadrival (Flu Vaccine, Do Not Administer) 1 ea N/A PRN PRN PRN Reason: Notification Stop: 09/22/19 16:06 Insulin Aspart (Novolog Flexpen) 0 units SC ACHS RHINA Stop: 09/22/19 20:59 Last Admin: 08/26/19 08:30 Dose: 4 units Documented by: Lorazepam (Ativan) 0.5 mg PO Q8H PRN PRN Reason: Sedation/Anxiety Stop: 09/22/19 16:06 Magnesium Hydroxide (Milk Of Magnesia) 30 ml PO DAILY PRN PRN Reason: Constipation Stop: 09/22/19 16:06 Metoclopramide HCl (Reglan) 10 mg IV Q6H PRN PRN Reason: Nausea &/or Vomiting Stop: 09/22/19 16:06 Miscellaneous (Carbohydrates For Hypoglycemia) 15 - 30 gm PO UD PRN PRN Reason: Hypoglycemia Protocol Stop: 09/22/19 17:51 Naloxone HCl (Narcan) 0.1 mg IV Q5M PRN; Protocol PRN Reason: Oversedation/Resp Depression Stop: 09/22/19 16:06 Ondansetron HCl (Zofran) 4 mg IV Q6H PRN PRN Reason: Nausea &/or Vomiting Stop: 09/22/19 16:06 Ondansetron HCl (Zofran Odt) 4 mg PO Q6H PRN PRN Reason: Nausea Stop: 09/22/19 16:06 Oxycodone HCl (Roxicodone Immediate Rel) 5 - 10 mg PO Q4H PRN PRN Reason: Moderate-Severe Pain & Pre PT Stop: 09/06/19 16:06 Last Admin: 08/26/19 08:01 Dose: 10 mg Documented by: Pneumococcal Polyvalent Vaccine (Pneumococcal Vacc, Do Not Administer) 1 ea N/A PRN PRN PRN Reason: Notification Stop: 09/22/19 16:06 Ranolazine (Ranexa) 1,000 mg PO BID RHINA Stop: 09/22/19 20:59 Last Admin: 08/26/19 08:03 Dose: 1,000 mg Documented by: Senna/Docusate Sodium (Senokot S) 2 tab PO HS RHINA Stop: 09/22/19 20:59 Last Admin: 08/25/19 20:06 Dose: 2 tab Documented by: Sodium Biphosphate/Sodium Phosphate (Fleet Enema) 132 ml CO ONE PRN PRN Reason: Constipation Stop: 09/22/19 16:06 Tramadol HCl (Ultram) 50 - 100 mg PO Q4H PRN PRN Reason: Moderate-Severe Pain & Pre PT Stop: 09/22/19 16:06 Warfarin Sodium (Coumadin) 4 mg PO DAILY@1600 RHINA Stop: 09/24/19 15:59 Last Admin: 08/25/19 16:46 Dose: 4 mg Documented by:
== END 2019-08-26 13:21 | disposition home or self-care (01) | DRG 454 ==
LOC: ASU 07:50 → 3E 14:26

== ENCOUNTER 2020-03-22 05:02 | Inpatient (IN) ==
--- NOTE | 2020-02-17 16:21 | PAT Medication Instructions ---
Medication Instructions Date of Service February 17, 2020 Home Medications acetaminophen [Tylenol Extra Strength] 1,000 mg PO Q6H PRN atorvastatin 80 mg PO PM cholecalciferol (vitamin D3) 2,000 unit PO QAM ezetimibe [Zetia] 10 mg PO QAM metformin 500 mg PO QPM ranolazine [Ranexa] 1,000 mg PO BID warfarin 2 - 4 mg PO QPM Arthritis Med 1 tab PO QAM aspirin [Aspir-81] 81 mg PO QAM ASK your prescriber and surgeon warfarin 2 - 4 mg PO QPM STOP taking 2 weeks before surgery If surgery is within 2 weeks, stop taking as soon as possible. Arthritis Med 1 tab PO QAM DO NOT take the morning of surgery cholecalciferol (vitamin D3) 2,000 unit PO QAM Take morning of surgery With a small sip of water, OTHERWISE NOTHING TO EAT OR DRINK AFTER MIDNIGHT: acetaminophen [Tylenol Extra Strength] 1,000 mg PO Q6H PRN (if needed, may be taken up to four hours before surgery) ezetimibe [Zetia] 10 mg PO QAM ranolazine [Ranexa] 1,000 mg PO BID aspirin [Aspir-81] 81 mg PO QAM Take evening before surgery acetaminophen [Tylenol Extra Strength] 1,000 mg PO Q6H PRN (if needed) atorvastatin 80 mg PO PM metformin 500 mg PO QPM ranolazine [Ranexa] 1,000 mg PO BID Other Notes If you have any questions please call us at [phone] or [phone] or [phone] or [phone]
--- NOTE | 2020-02-18 11:46 | Anesthesiology Consultation ---
Date of Service February 18, 2020 Assessment & Plan (1) Encounter for pre-operative examination: COVID Status: As of 02/17 assessment, patient denies travel to endemic area, known exposure/sick contacts, or symptoms of COVID19. Patient instructed that they and their household members must follow strict social distancing guidelines, wear a mask in public and avoid travel for 14 days prior to surgery. Preoperative COVID19 testing to be completed prior to surgery per surgeon's arra ngements. Patient made aware to self-isolate as much as possible between COVID testing and surgery. Patient had multi-level spinal fusion at [facility] 08/23/19. Seen by cardiology for clearance prior to that surgery -- "in consideration of an intermediate risk surgery with no clinical risk factors and good functional capacity, there is no indication for any additional testing prior to his surgery. He is optimized from a cardiology standpoint for his upcoming surgery." Uneventful surgical and postoperative course, patient reports much improved function and mobility since this surgery. Discussed both SAB and GA since patient had L4-S1 fusion in August. Could do SAB at L3-L4, or GA, will leave to anesthesia discretion AM DOS. Chart Review Chart Review: Acceptable Risk for Surgery (pending surgeon-ordered PCP clearance) and Patient seen in Pre Admission Testing Teaching & Discussion Instructed NPO after midnight before surgery, except medications with 15 cc of water. Medication instructions provided according to the PAT guidelines. History Surgery Operation Date: 03/22/20 12:25 Proposed Procedures p Right Total Knee Arthroplasty - Jeremy Najera MD Height/Weight Height: 5 ft 8 in Weight: 100.7 kg Allergies Allergy/AdvReac Type Severity Reaction Status Date / Time No Known Allergies Allergy Verified 02/11/20 10:51 Medications Home Medications Medication Instructions Recorded Confirmed Last Taken acetaminophen [Tylenol Extra 1,000 mg PO Q6H PRN 07/08/19 02/11/20 Unknown Strength] atorvastatin 80 mg PO PM 07/08/19 02/11/20 08/22/19 20:00 cholecalciferol (vitamin D3) 2,000 unit PO QAM 07/08/19 02/11/20 08/22/19 08:00 [Vitamin D3] ezetimibe [Zetia] 10 mg PO QAM 07/08/19 02/11/20 08/23/19 07:00 metformin 500 mg PO QPM 07/08/19 02/11/20 08/22/19 20:00 ranolazine [Ranexa] 1,000 mg PO BID 07/08/19 02/11/20 08/23/19 07:00 warfarin 2 - 4 mg PO QPM 07/08/19 02/11/20 08/09/19 08:00 aspirin [Aspir-81] 81 mg PO QAM 02/11/20 02/11/20 Unknown meloxicam 15 mg PO QAM 02/18/20 02/18/20 Unknown Past Medical History Medical History Aortic stenosis S/P bioprosthetic AV. Echo 07/13/18 showed moderate and mild meryl- prosthetic regurgitation. PAKO 1.1cm2. MG 25.37 mmHg. CAD (coronary artery disease) Total of 5 cardiac stents. Most recent cath 2018 prior to AVR. Hiatal hernia Hyperlipidemia Hypertension Paroxysmal A-fib ON WARFARIN Prediabetes Exercise / Class Metabolic Activity II 4-5 Yardwork/Stairs/Walk up hill (Denies CP or SOB with 1 FOS) Past Family History Family History Sister Family history of reaction to anesthesia PONV Mother Family history of diabetes mellitus Father Family history of diabetes mellitus Past Surgical History Surgical History (Updated 02/18/20 @ 16:05 by Pineda Valente) Fusion of spine GLIDESCOPE #4, 08/23/19. History of arthroscopy RIGHT KNEE History of cardiac cath -TOTAL 5 STENTS-LAST CARDIAC CATH 2018 PRIOR TO AVR History of colonoscopy History of heart valve replacement AVR-2018 [facility] History of myringotomy History of total shoulder replacement RT Hx of tonsillectomy [place] teeth removed Past Anesthesia History No Hx of Anesthesia Complications and No Family Hx of Anesthesia Complications S/P decompression/fusion L4-S1 08/23/19 = Glidescope #4, ETT 7.5, atraumatic x 1 attempt. History of PONV No Hx of PONV and No Hx of Motion Sickness Social History Smoking Status: Never smoker tobacco type: smokeless tobacco Do You Dip or Chew Tobacco: No (QUIT CHEWING MANY YEARS AGO) Hx Alcohol Use: Yes Alcohol type: beer alcohol intake frequency: a few times a week Hx Substance Use: No substance use type: does not use Review of Systems Pt denies any recent chest pain, shortness of breath, palpitations, cough, fever, URI, or uncontrolled acid reflux. Physical Exam Vital Signs BP: 168/81 P: 50bpm SPO2: 99% RA T: 98.2 F R: 16 ENMT Mouth: no dental restorations, no chipped teeth and no loose teeth Thyromental Distance: > or= 3.5 Finger Breadths Mallampati Class: II Neck normal visual inspection, + limited neck extension and + facial hair (short lipscomb) Respiratory normal respiratory effort Auscultation: lungs clear to auscultation bilaterally Cardiovascular Rate/Rhythm: regular rhythm and + bradycardic Heart Sounds: + murmur (III/ cresc/decresc systolic murmur with radiation) Vessels: + carotid bruit (radiation from aortic valve) Testing Laboratory Results 02/18/20 12:00 02/18/20 12:00 PT 19.4 Seconds (9.0-12.0) H 02/18/20 12:00 INR 1.9 (0.9-1.1) H 02/18/20 12:00 APTT 36.7 Seconds (21.0-31.0) H 02/18/20 12:00 Hemoglobin A1c 5.1 % (4.5-5.6) 02/18/20 12:00 Urine Color Yellow 02/18/20 Unknown Urine Appearance Clear (Clear) 02/18/20 Unknown Urine pH 7.0 (4.5-7.5) 02/18/20 Unknown Ur Specific [place] 1.018 (1.000-1.030) 02/18/20 Unknown Urine Protein Negative (Negative) 02/18/20 Unknown Urine Glucose (UA) Negative (Negative) 02/18/20 Unknown Urine Ketones Negative (Negative) 02/18/20 Unknown Urine Nitrite Negative (Negative) 02/18/20 Unknown Ur Leukocyte Esterase Trace (Negative) H 02/18/20 Unknown Urine WBC (Auto) 1-5 /hpf (0-5) 02/18/20 Unknown Urine RBC (Auto) 0-4 /hpf (0-4) 02/18/20 Unknown U Hyaline Cast (Auto) 0 /lpf (0-5) 02/18/20 Unknown U Epithel Cells (Auto) 0-5 /lpf (0-5) 02/18/20 Unknown Urine Bacteria (Auto) Negative (Negative) 02/18/20 Unknown Blood Type A Positive 02/18/20 12:00 Antibody Screen NEGATIVE 02/18/20 12:00 Electrocardiogram Date: 07/15/19 Findings: + NSR @ (62bpm) Chest X-Ray Date: 07/15/19 Mild cardiac enlargement with no active disease in the chest. Other Testing Echocardiogram Date: 07/13/18 EF: 60% LV normal in size. Mild concentric LVH. Moderately abnormal LA volume (moderately dilated). Moderate . Mild aortic regurgitation. Peak/mean gradient across the AV is 38.19mmHg/25.37mmHg. There is meryl-prosthetic regurgitation f the bioprosthetic AV. Stress Test Date: 06/05/17 Exercise stress EKG is POSITIVE for ischemia at a workload of more than 7 METs. *see cath below Cardiac Catheterization Date: 06/29/17 Left main: No angiographically significant disease LAD: Small caliber calcified vessel, luminal irregularities in the proximal and mid segment of the vessel, but no angiographically significant disease. Left circumflex: Small to moderate caliber vessel with mild luminal irregularities and no significant disease. RCA: This is a moderate to large caliber vessel There are stent in the midsegment of the vessel. There is mid segment in-stent 40% restenosis. To PDA which is a small vessel, has a mid segment 70% lesion. Severe aortic stenosis with a mean gradient of more than 40 mmHg dimensionless index of 0.2 and calculated PAKO 0.6. Plan: Referral to CT surgery for aortic valve replacement.
[2020-02-18 13:39] LABS: Basophils # (auto) 0.01 K/uL (0-0.2); Basophils % (auto) 0.2 %; Eosinophils # (auto) 0.11 K/uL (0-0.5); Eosinophils % (auto) 2.7 %; Hematocrit (blood only) 43.3 % (42-52); Hemoglobin 13.9 g/dL (14.0-18.0); Immature Granulocytes # (auto) 0.01 K/uL (0.00-0.02); Immature Granulocytes % (auto) 0.2 %; Lymphocytes # (auto) 0.93 K/uL (1.2-3.4); Mean Corpuscular Hemoglobin 29.9 pg (25-34); Mean Corpuscular Hgb Conc 32.1 g/dL (32-36); Mean Corpuscular Volume 93.1 fL (80-100); Mean Platelet Volume 11.9 fL (7.4-10.4); Monocytes % (auto) 12.3 %; Neutrophils # (auto) 2.49 K/uL (1.4-6.5); Neutrophils % (auto) 61.6 %; Platelet Count 148 K/uL (130-400); RDW Coefficient of Variation 13.5 % (11.5-14.5); Red Blood Count 4.65 M/uL (4.7-6.1); White Blood Count 4.05 K/uL (4.8-10.8)
[2020-02-18 13:44] LABS: Appearance Urine Clear (Clear); Bacteria Urine Automated Negative (Negative); Bilirubin Urine Negative (Negative); Blood Urine Negative (Negative); Cast Urine Automated 0 /lpf (0-5); Color Urine Yellow; Epithelial Cell Urine Auto 0-5 /lpf (0-5); Glucose Urine UA Negative (Negative); Ketones Urine Negative (Negative); Leukocyte Esterase Urine Trace (Negative); Nitrite Urine Negative (Negative); Protein Urine Negative (Negative); RBC Urine Automated 0-4 /hpf (0-4); Specific Gravity Urine 1.018 (1.000-1.030); Urobilinogen Urine Negative (Negative)
[2020-02-18 13:46] LABS: Albumin Level 3.6 gm/dl (3.4-5.0); BUN Creatinine Ratio 13.9 (10-20); Calcium 8.6 mg/dl (8.5-10.1); Est GFR (African American) 92.4; Est GFR (Non-African American) 79.7; Estimated Average Glucose 100 mg/dl; Hemoglobin A1C 5.1 % (4.5-5.6); Potassium 4.9 mmol/L (3.5-5.1)
[2020-02-18 13:49] LABS: INR 1.9 (0.9-1.1); Partial Thromboplastin Ratio 1.3; Partial Thromboplastin Time 36.7 Seconds (21.0-31.0); Prothrombin Time 19.4 Seconds (9.0-12.0)
--- NOTE | 2020-03-21 19:12 | History and Physical Report ---
DATE OF ADMISSION: 03/22/2020 CHIEF COMPLAINT: Chronic right knee pain. HISTORY OF PRESENT ILLNESS: This is a 64-year-old male patient of Dr. Najera'sharonda complaining of chronic right knee pain, longstanding, now progressively getting worse. The patient has failed conservative treatment including intra-articular injections, home exercise program, bracing. The patient cannot take anti-inflammatories because he is on Coumadin. The patient has increased pain with weightbearing activities and his pain does interfere with his activities of daily living. The patient has been diagnosed with end-stage osteoarthritis in his right knee per clinical and radiographic exams and wishes to proceed with a right total knee arthroplasty. PAST MEDICAL HISTORY: Angina, heart murmur, otherwise a healthy 64-year-old male. SOCIAL HISTORY: Nonsmoker, occasional drinker. PAST SURGICAL HISTORY: Shoulder surgery, back surgery, heart surgery. FAMILY HISTORY: Noncontributory. REVIEW OF SYSTEMS: The patient complains of chronic right knee pain, otherwise denies any shortness of breath, chest pain, nausea, vomiting or any other joint complaints. MEDICATIONS: 1. Atorvastatin 80 mg daily. 2. Zetia 10 mg daily. 3. Ranexa 1000 mg extended release twice daily. 4. Aspirin 81 mg daily. 5. Vitamin D3 daily. 6. Coumadin 2 mg every other day. 7. Warfarin 4 mg every other day. 8. Metformin 500 mg 1 tablet daily. 9. Meloxicam 15 mg daily. ALLERGIES: No known drug allergies. PHYSICAL EXAMINATION: GENERAL: Well-developed, well-nourished 64-year-old male in no acute distress. He is alert and oriented x3 and pleasant. HEENT: Normocephalic, atraumatic. Extraocular motions are intact. Pupils are equal and reactive to light. HEART: Regular rate and rhythm, no murmurs. LUNGS: Clear. ABDOMEN: Soft, nontender, bowel sounds present. EXTREMITIES: Right knee limited range of motion with medial joint line tenderness. Positive crepitation, positive effusion. Neurologically and neurovascularly intact in his right lower extremity. DIAGNOSES: Right knee end-stage osteoarthritis, history of angina, heart murmur. PLAN: The patient was advised of his diagnoses. Indications, risks, benefits, postop course have all been reviewed. The patient wished to proceed with a right total knee arthroplasty. Necessary consent forms, preoperative testing and clearances will be obtained.
[2020-03-22] MEDS ORDERED: oxyCODONE HCL 10 MG TABCR (OxyCONTIN) PO SCH (06:00)
[2020-03-22] MEDS ORDERED: ceFAZolin 2000MG 2,000 MG/15 ML SYR IV SCH (06:00)
[2020-03-22] MEDS ORDERED: dexAMETHasone 4 MG TAB PO SCH (06:00)
[2020-03-22] MEDS ORDERED: GABAPENTIN 600 MG DOSE PO SCH (06:00)
[2020-03-22] MEDS ORDERED: LR 500ML BOLUS, THEN 15ML/HR IV SCH (06:00)
[2020-03-22] MEDS ORDERED: ACETAMINOPHEN 500 MG TAB PO SCH (06:00)
[2020-03-22] MEDS ORDERED: FAMOTIDINE 20 MG TAB PO SCH (06:00)
[2020-03-22] MEDS ORDERED: ROPIVACAINE 0.5% HCL/PF 150 MG, BUPIVACAINE 0.5% MPF 30 ML, EPINEPHrine 30MG/30ML (OR U... INFIL SCH (06:00)
[2020-03-22] MEDS ORDERED: CeleBREX 200 MG CAP PO SCH (06:00)
[2020-03-22 06:09] LABS: Partial Thromboplastin Ratio 1.1; Partial Thromboplastin Time 30.4 Seconds (21.0-31.0); Prothrombin Time 10.9 Seconds (9.0-12.0)
[2020-03-22] MEDS ORDERED: BUPIVACAINE 0.5 % 5 MG/1 ML PF 10ML VIAL ONE (06:29)
[2020-03-22] MEDS ORDERED: BUPIVACAINE 0.25% 30 ML VIAL ONE (06:29)
[2020-03-22] MEDS ORDERED: fentaNYL citrate 100 MCG/2 ML VIAL ONE ×2 (06:43→07:45)
[2020-03-22] MEDS ORDERED: MIDAZOLAM HCL 1 MG/ML 2ML VIAL ONE (06:43)
[2020-03-22] MEDS ORDERED: PROPOFOL IV EMULSION 10 MG/ML 20 ML VIAL IV ONE (06:43)
[2020-03-22] MEDS ORDERED: LIDOCAINE HCL 2% 2 ML VIAL/AMP(20MG/ML) INFIL ONE (06:43)
[2020-03-22] MEDS ORDERED: ORTHO JOINT ANESTHETIC ONE (07:00)
[2020-03-22] MEDS ORDERED: BACITRACIN INJ 50,000 UNIT VIAL ONE (07:01)
--- NOTE | 2020-03-22 07:09 | History & Physical Bridge Note ---
Date of Service March 22, 2020 History & Physical Bridge Note I have examined the patient, reviewed the History & Physical and in the interval since the performance of the History & Physical I have noted the following changes of clinical significance: no changes noted
[2020-03-22] MEDS ORDERED: fentaNYL citrate 100 MCG/2 ML VIAL IV PRN (07:24)
[2020-03-22] MEDS ORDERED: ATROPINE SULFATE 0.1 MG/ML 10ML SYR IV PRN (07:24)
[2020-03-22] MEDS ORDERED: HYDROmorphone INJ 1 MG/ML SYRINGE IV PRN (07:24)
[2020-03-22] MEDS ORDERED: ONDANSETRON INJ 2 MG/ML 2 ML VIAL IV PRN ×2 (07:24→10:52)
[2020-03-22] MEDS ORDERED: ePHEDrine sulfate 50 MG/ML AMP IV PRN (07:24)
[2020-03-22] MEDS ORDERED: ONDANSETRON INJ 2 MG/ML 2 ML VIAL ONE (07:45)
[2020-03-22] MEDS ORDERED: PHENYLEPHRINE 100MCG/ML 5ML SYR ONE (09:02)
--- NOTE | 2020-03-22 09:14 | Post Operative Brief Note ---
Immediate Post Op Note v1 Date of Surgery March 22, 2020 Pre & Post Diagnosis Operation Date: 03/22/20 07:00 Pre-Op Diagnosis: Osteoarthritis, Right Knee Post-Op Diagnosis: Osteoarthritis, Right Knee I identified the patient and participated in the time-out.: Yes Procedure Operation Date: 03/22/20 07:00 Actual Procedures p Right Total Knee Arthroplasty(Right), lateral release- Jeremy Najera MD Surgeon Jeremy Najera MD Factory Process Workers VALENTINO Reece Estimated Blood Loss 5 Findings Consistent with Post-Op Diagnosis Specimens Bone cuts Drains Hemovac Drain Anesthesia Type General Regional Complications none Disposition Accompanied Patient To Recovery: No Disposition: Recovery Room Overlapping Procedure I was immediately available: during the entire case.
--- NOTE | 2020-03-22 09:29 | Operative Report ---
Post Operative Report Pre & Post Diagnosis Operation Date: 03/22/20 07:00 Pre-Op Diagnosis: Osteoarthritis, Right Knee Post-Op Diagnosis: Osteoarthritis, Right Knee I identified the patient and participated in the time-out.: Yes Procedure Operation Date: 03/22/20 07:00 Actual Procedures Right Total Knee Arthroplasty, lateral release- Jeremy Najera MD Surgeon Jeremy Najera MD Preschool Substitute Teacher VALENTINO Reece Estimated Blood Loss 5 Findings Consistent with Post-Op Diagnosis Specimens Bone cuts Drains 2 Hemovac Anesthesia Type General Regional Complications none Disposition Accompanied Patient To Recovery: No Disposition: Recovery Room Indications 64-year-old male chronic progressive osteoarthritis in right knee. He has a varus knee mild flexion contracture with [id number] medial compartment. Description of Procedure Patient was taken to the operating room placed supine on the operating table and anesthetized under regional block and general anesthesia. Exam under anesthesia demonstrated 10 degree flexion contracture with flexion to 130 degrees and no instability. A pneumatic tourniquet was placed about the thigh of the right lower extremity. The right lower extremity was prepped and draped in usual fashion. The leg was elevated exsanguinated with an Esmarch bandage and the pneumatic was raised to 325 mm mercury. An anterior incision was made across the right knee. The skin was incised longitudinally subcutaneous flaps were elevated and an incision was made through the medial retinaculum extending up into the mid third of the quadriceps tendon and extended down to the medial tibial tubercle. Intra-articular findings demonstrated eburnated bone medial compartment [id number]. The knee was exposed by excising the infrapatellar fat pad, excising the meniscal remnants and anterior cruciate ligament. Any inflamed synovial tissue was resected. The fat pad over the anterior femur was resected for placement of the component in that area. The lateral synovial bands were release. The femur was exposed. The custom femoral cutting block was pinned in position. The distal femoral cutting block was applied. The distal femoral cut was made with the oscillating saw. The size 11, 4-in-1 cutting block was placed. The anterior and posterior chamfer cuts were made. The knee was extended and a subperiosteal peel lateral release was performed around the patella. The patella width was measured and width was reproduced using freehand cut technique. The 32 x 8.5 millimeter symmetrical patella was used. 3 drill holes are made for the pegs. The tibia was exposed. A custom tibial cutting block was positioned and drill holes were made for the cutting guide. Cutting guide was placed and the proximal cut was made with the oscillating saw. All osteophytes were resected. The lamina assistant counsel was used to assess ligamentous balance and the ligaments were balanced in extension and flexion. The tibia was reexposed and measured for a size F tibial component. This was externally rotated in line with the tibial tubercle and the fixation pins were drilled. The proximal tibia was fashioned with the drill and punch. The size 11 right CR femoral trial was inserted. The trial MC inserts were used. The 10 mm insert gave balanced ligaments through full range of motion. The patella tracked with very subtle light liftoff so we did a partial lateral release which left the synovium intact and allowed patella tracked completely centrally with no touch technique. the trials were removed. The orthomix anesthetic cocktail was injected per protocol. The knee was then copiously irrigated with pulsatile lavage antibiotic solution with bacitracin. The final components were cemented with Simplex cement. The final components were Yuri persona size 11 standard right CR femoral component, F tibia, 10 MC polyethylene, 32 x 8.5 symmetrical patella. After the cement cured with the knee in full extension the Betadine soak was used per protocol. The knee joint was copiously irrigated with antibiotic solution with bacitracin. 2 drains were brought out laterally and connected to a Hemovac. The quadriceps tendon and medial retinaculum were closed with interrupted [id number] #1 Vicryl sutures. The knee was taken through a full range of motion and repair was secure. The subcutaneous tissues were closed with 2-0 Vicryl sutures and skin was closed with susie. Sterile dressings were applied and the patient tolerated the procedure well. Samuel AVELAR my physician apartment community assistant manager, assisted in soft tissue retraction instrument management leg positioning the closure and will participate in the postoperative care of the patient. I attest to the content of the Intraoperative Record and any orders documented therein. Any exceptions are noted below.
--- NOTE | 2020-03-22 09:45 | XRay Report ---
XR knee RT 1 or 2V routine CLINICAL HISTORY: Surgical Post Op COMPARISON: None. DISCUSSION: There are postsurgical changes of a total right knee arthroplasty and patellar resurfacin g. The femoral tibial components appear well seated. There are overlying skin susie and surgical dr apollo. There is gas present within the soft tissues consistent with recent surgery. IMPRESSION: Postsurgical changes of a total right knee arthroplasty. ACT 112: Negative or not required by law. Electronically signed by: Vincent Braun M.D. 03/22/2020 9:43 AM
--- NOTE | 2020-03-22 10:01 | Anesthesiology Progress Note ---
Date of Service March 22, 2020 Anesthesia Post Procedure Vital Signs Vital Signs: Temp Pulse Resp BP BP Pulse Ox 03/22/20 09:50 65 13 146/87 H 94 03/22/20 09:40 65 14 150/86 H 100 03/22/20 09:30 64 14 141/87 H 100 03/22/20 09:22 36 C L 63 17 143/84 H 100 03/22/20 05:28 36.8 C 65 16 174/88 H 97 Pain Intensity Right Knee: Pain Intensity: 0 Transfer of Care Handoff Completed per policy Notes Mental Status: alert / awake / arousable and participated in evaluation Patient Amnestic to Procedure: Yes Nausea / Vomiting: adequately controlled Pain: adequately controlled Airway Patency, RR, SpO2: stable & adequate BP & HR: stable & adequate Hydration State: stable & adequate Anesthetic Complications: no major complications apparent and Pt Satisfied with anesthetic care
[2020-03-22] MEDS ORDERED: bisacodyL 10 MG SUPP PR PRN (10:52)
[2020-03-22] MEDS ORDERED: diphenhydrAMINE Capsule 25 MG CAP PO PRN (10:52)
[2020-03-22] MEDS ORDERED: MAGNESIUM HYDROXIDE SUSP 30 ML UDC PO PRN (10:52)
[2020-03-22] MEDS ORDERED: NALOXONE HCL 0.4 MG/1 ML VIAL/CARP IV PRN (10:52)
[2020-03-22] MEDS ORDERED: HYDROmorphone INJ 0.5 MG/0.5 ML SYR IV PRN (10:52)
[2020-03-22] MEDS ORDERED: PHARMACY GLYCEMIC MGMT CONSULT PRN (11:08)
[2020-03-22] MEDS ORDERED: GLUCAGON FOR INJ 1 MG VIAL IM PRN (11:15)
[2020-03-22] MEDS ORDERED: GLUCOSE 10 TABS/TUBE PO PRN (11:15)
[2020-03-22] MEDS ORDERED: GLUCOSE 40% GEL 15 GM TUBE PO PRN (11:15)
[2020-03-22] MEDS ORDERED: CARBOHYDRATES FOR HYPOGLYCEMIA PO PRN (11:15)
[2020-03-22] MEDS ORDERED: DEXTROSE 50% 50 ML SYRINGE IV PRN (11:15)
--- NOTE | 2020-03-22 11:35 | Pharmacy Report ---
Glycemic Control Consultation - Date of Service March 22, 2020 - Scope Scope: Glycemic Pharmacist consulted for glycemic control and to write orders per [facility] inpatient glycemic control protocol. - Objective Weight: 99.337 kg Accuchecks BSG (last 24hrs): 03/22/20 03/22/20 05:44 11:24 POC Glucose 104 H 133 H HbA1c: Hemoglobin A1c 5.1 % (4.5-5.6) 02/18/20 12:00 - Recent Pertinent Medications Outpatient Anti-diabetic Regimen: * metformin 500 qpm * A1c = 5.1 % 02/18/20 Risk Factors for Insulin Resistance: * Steroids: dxm 8 po * Recent Surgery POD 0 * Diet: t2dm - Assessment & Plan Assessment & Plan: ASSESSMENT: * 64 year old male now s/p R TKA. Pharmacy consulted for glycemic management. Patient only on metformin at home. Patient reports being pre-diabetic * Received PO steroids preop. Was here for procedure earlier this year 08/22 and had also received steroids. BSGs had been relatively stable with just correctional insulin * Will start novolog insulin with lunch. Plan to hold long acting insulin and see how BSGs trend PLAN FOR INPATIENT GLYCEMIC CONTROL: * Basal insulin * hold * Bolus insulin * NovoLog per scale ACHS or Q6hrs while NPO * Goal Range: Low 110 mg/dL - High 140 mg/dL * Correction Factor: 25 mg/dL/unit * Nutritional / Prandial insulin per carb ratio of 1 unit per 8 grams CHO consumed * Please note that the plan above was derived based on current level of insulin resistance and hospital stress. These recommendations are appropriate for inpatient admission only. Plan of care upon discharge will need to be reassessed to avoid potential outpatient hypo/hyperglycemia. Thank you.
--- NOTE | 2020-03-22 11:49 | History & Physical Report ---
Date of Service March 22, 2020 Assessment & Plan (1) Diabetes mellitus, type 2: * Patient only utilizes 500 mg Metformin daily. * Previous hemoglobin A1c's have been 4.8 and 5.1, respectively. * Obviously well maintained on home medication. * Please see pharmacy recommendations. (2) S/P total knee arthroplasty: * OxyIR as needed. * Stool softeners already added per surgery. (3) Osteoarthritis, knee: * Status post RIGHT sided total knee arthroplasty with lateral release. (4) Paroxysmal A-fib: * Continue home medications as tolerated. * Restart Coumadin per surgery recommendations. (5) Hyperlipidemia: * Continue home dosing of Lipitor and Zetia (6) CAD (coronary artery disease): * Continue home ASCVD Rx as tolerated. (7) Aortic stenosis: * s/p Bioprosthetic aortic valve on 07/09/2017. * Continue home dosing of Coumadin per surgery recommendations. Admission and Anticipated Discharge Date Admission Date: March 22, 2020 History of Present Illness Primary Care Provider: Tori Spangler Patient is a 64-year-old male with a significant past medical history of coronary artery disease, aortic stenosis status post porcine valve replacement on 07/09/2017, hyperlipidemia, paroxysmal A. fib, neurogenic claudication secondary to lumbar spinal stenosis, degenerative joint disease, and DMII. Patient had been having worsening RIGHT-sided knee pain secondary to osteoarthritis which was not responding to conventional treatment therapies including intra-articular injections, exercise, and limited by his inability to take NSAIDs secondary to chronic Coumadin use. Patient underwent successful RIGHT-sided total knee arthroplasty with lateral release this morning. Estimated blood loss 5 mL. No immediate postoperative complications were noted. Patient reports feeling well at this time. He denies any complaints of pain at all rating his discomfort is 0/10. He does reportedly take Metformin 500 mg daily at home secondary to diabetes. Hospital service was consulted for management of diabetes in the postsurgical patient. At this point, the patient denies any complaints of headaches, dizziness, lightheadedness, chest pain, palpitations, shortness of breath, pleuritic pain, nausea, vomiting, or numbness/weakness to the extremities. Allergies Allergy/AdvReac Type Severity Reaction Status Date / Time No Known Allergies Allergy Verified 03/22/20 05:43 Home Medications Home Medications Medication Instructions Recorded Confirmed Type acetaminophen [Tylenol Extra 1,000 mg PO Q6H PRN 07/08/19 02/11/20 History Strength] atorvastatin 80 mg PO PM 07/08/19 03/22/20 History cholecalciferol (vitamin D3) 2,000 unit PO QAM 07/08/19 03/22/20 History [Vitamin D3] ezetimibe [Zetia] 10 mg PO QAM 07/08/19 03/22/20 History metformin 500 mg PO QPM 07/08/19 03/22/20 History ranolazine [Ranexa] 1,000 mg PO BID 07/08/19 03/22/20 History warfarin 2 - 4 mg PO QPM 07/08/19 03/22/20 History aspirin [Aspir-81] 81 mg PO QAM 02/11/20 03/22/20 History meloxicam 15 mg PO QAM 02/18/20 03/22/20 History enoxaparin 100 mg SUBCUT Q12 03/22/20 03/22/20 History acetaminophen 1,000 mg PO Q8 30 Days #180 tab 03/23/20 Rx enoxaparin 100 mg SUBCUT Q12H 5 Days #10 ml 03/23/20 Rx oxycodone 5 mg PO Q4H PRN #30 tab 03/23/20 Rx Past Med/Surg History Medical History (Updated 03/22/20 @ 11:43 by Jeffery Gomez PA-C) Aortic stenosis S/P bioprosthetic AV. Echo 07/13/18 showed moderate and mild meryl- prosthetic regurgitation. PAKO 1.1cm2. MG 25.37 mmHg. CAD (coronary artery disease) Total of 5 cardiac stents. Most recent cath 2018 prior to AVR. Hiatal hernia Hyperlipidemia Hypertension Paroxysmal A-fib ON WARFARIN Prediabetes Surgical History Fusion of spine GLIDESCOPE #4, 08/23/19. History of arthroscopy RIGHT KNEE History of cardiac cath -TOTAL 5 STENTS-LAST CARDIAC CATH 2018 PRIOR TO AVR History of colonoscopy History of heart valve replacement AVR-2018 [facility] History of myringotomy History of total shoulder replacement RT Hx of tonsillectomy [place] teeth removed Family History Sister Family history of reaction to anesthesia PONV Mother Family history of diabetes mellitus Father Family history of diabetes mellitus Social History Smoking Status: Never smoker Second Hand Exposure: No; Do You Dip or Chew Tobacco: No (QUIT CHEWING MANY YEARS AGO); Tobacco Cessation Education Requested by Patient: No Hx Alcohol Use: Yes Alcohol type: beer Hx Substance Use: No Preferred Language: Yakut Communication Ability: Effective Process Control Engineer Required: No Beliefs That Will Affect Care: None marital status: Current Living Situation: Family Feels Safe at Home: Yes Safety Concerns: Feels Safe At This Time Assistive Devices: None Review of Systems Review of Systems: A complete 10 point review of systems was reviewed with the patient with pertinent positives and negatives as per history of present illness. All else were negative. Physical Exam Physical Exam: VITAL SIGNS - Vital signs and nursing notes were reviewed. GENERAL - 64-year-old male appearing his stated age who is in no acute distress. Communicates well with provider and answers questions appropriately. SKIN - Dressing to the RIGHT knee clean, dry, and intact. Bloody serosanguineous drainage from the RIGHT sided drain. HEAD - NC/AT. EYES - PERRL with EOMI bilaterally. EARS - No deformities of external structures noted on gross examination bilater ally. NOSE - Midline and without cyanosis. No epistaxis or purulent drainage noted. MOUTH/OROPHARYNX - Without perioral cyanosis. Buccal mucosa pink and moist and without leukoplakia. NECK - Neck with FROM. No nuchal rigidity. LUNGS - Chest wall symmetric without accessory muscle use, intercostals retractions, or central cyanosis. Normal vesicular breath sounds CTA B/L. No wheezes, rales, or rhonchi appreciated. CARDIAC - RRR with S1/S2. No murmur, rubs, or gallops appreciated. ABDOMEN - Abdominal contour obese without pulsations or visible masses. BS normoactive all four quadrants. No tenderness, palpable masses, hepatosplenomegaly, or ascites noted. EXTREMITIES - No clubbing or peripheral cyanosis. No pretibial edema present. +3/5 radial and dorsalis pedis pulses palpated throughout. Limited ROM of the RIGHT Lower Extremity 2/2 to postoperative status. NEUROLOGIC - Cranial nerves II through XII grossly intact. Sensory intact to light touch throughout. PSYCH - A&Ox3 and cooperates fully with examiner. Pt is very pleasant and interacts well with examiner. Results & Data Results & Data ([facility]) Vital Signs (Past 12 Hours) Vital Signs Temp Pulse Resp BP BP Pulse Ox 03/22/20 10:30 36.4 C L 67 16 133/88 98 03/22/20 10:20 36.4 C L 65 16 136/75 98 03/22/20 10:10 64 16 125/81 95 03/22/20 10:00 63 16 143/88 H 95 03/22/20 09:50 65 13 146/87 H 94 03/22/20 09:40 65 14 150/86 H 100 03/22/20 09:30 64 14 141/87 H 100 03/22/20 09:22 36 C L 63 17 143/84 H 100 03/22/20 05:28 36.8 C 65 16 174/88 H 97 Code Status & VTE Plan VTE Prophylaxis Plan VTE Prophylaxis will be ordered: Yes Supervising Physician Co-Signing Physician Notes I personally saw and examined the patient. I verified all andrade points and agree with VALENTINO Gomez with the following exceptions and/or additions: Artie Coronel 64yo male post op day #0 Right TKA A/P no changes to above PG Care Time/CCT Total # of Minutes Spent Total Time Spent with Patient: Total time spent is greater than 50% in coordination of care (as documented) at patient's floor/unit and/or counseling patient: Coding Level of Care Code None Diagnoses Diabetes mellitus, type 2 E11.9 S/P total knee arthroplasty Z96.659 Osteoarthritis, knee M17.10 Paroxysmal A-fib I48.0 Hyperlipidemia E78.5 CAD (coronary artery disease) I25.10 Aortic stenosis I35.0 Time Spent (min) 35 Comment Note should be inpatient consult: billing code [id number]
[2020-03-22] MEDS: SODIUM CHLORIDE 0.9% 1000ML 1,000 ML IV SCH ×2 (12:53→21:29)
[2020-03-22] MEDS: INSULIN ASPART 100 UNITS/ML 3 ML PEN SC SCH ×3 (12:55→20:40)
[2020-03-22] MEDS: ACETAMINOPHEN 500 MG TAB PO SCH ×2 (13:55→21:29)
[2020-03-22] MEDS: ceFAZolin 2000MG 2,000 MG/15 ML SYR IV SCH ×2 (13:56→21:29)
[2020-03-22] MEDS ORDERED: WARFARIN SOD 6 MG TAB PO SCH (18:00)
[2020-03-22] MEDS: oxyCODONE HCL IR 5 MG TAB (IMMEDIATE RELEASE) PO PRN (18:01)
[2020-03-22] MEDS: ENOXAPARIN 100 MG/1ML SYR SQ SCH (18:28)
[2020-03-22] MEDS: DOCUSATE SODIUM 100 MG CAP PO SCH (20:39)
[2020-03-22] MEDS: RANOLAZINE 500 MG ER TAB PO SCH (20:39)
[2020-03-22] MEDS ORDERED: SENNA 8.6 MG TAB PO SCH (21:00)
[2020-03-22] MEDS ORDERED: ATORVASTATIN 40 MG TAB PO SCH (21:00)
[2020-03-23] MEDS: oxyCODONE HCL IR 5 MG TAB (IMMEDIATE RELEASE) PO PRN ×3 (01:06→12:44)
[2020-03-23 02:58] VITALS: TEMP 97.7
[2020-03-23] MEDS: ENOXAPARIN 100 MG/1ML SYR SQ SCH (05:46)
[2020-03-23] MEDS: ACETAMINOPHEN 500 MG TAB PO SCH (05:46)
[2020-03-23 07:11] LABS: Hematocrit (blood only) 33.5 % (42-52); Hemoglobin 11.1 g/dL (14.0-18.0); Mean Corpuscular Hemoglobin 30.9 pg (25-34); Mean Corpuscular Hgb Conc 33.1 g/dL (32-36); Mean Corpuscular Volume 93.3 fL (80-100); Mean Platelet Volume 11.3 fL (7.4-10.4); Platelet Count 148 K/uL (130-400); RDW Coefficient of Variation 12.8 % (11.5-14.5); RDW Standard Deviation 44.2 fL (36.4-46.3); Red Blood Count 3.59 M/uL (4.7-6.1); White Blood Count 12.09 K/uL (4.8-10.8)
[2020-03-23] MEDS: SODIUM CHLORIDE 0.9% 1000ML 1,000 ML IV SCH (07:14)
[2020-03-23 07:30] LABS: INR 1.1 (0.9-1.1); Prothrombin Time 11.2 Seconds (9.0-12.0)
[2020-03-23 07:37] LABS: BUN Creatinine Ratio 22.1 (10-20); Creatinine Clr Calc Pharmacy 94.9 ml/min; Est GFR (African American) 103.6; Est GFR (Non-African American) 89.4; Potassium 4.5 mmol/L (3.5-5.1)
[2020-03-23 07:40] VITALS: PULSE 66
--- NOTE | 2020-03-23 07:53 | Orthopedic Progress Note ---
Date of Service March 23, 2020 Assessment & Plan (1) Osteoarthritis, knee: POD #1, Right TKA PT/ OT DVT proph- ASA and Coumadin per home protocol, Lovenox bridging until INR therapeutic. D/C plans for home and OPPT Will monitor drain output and pain today for poss D/C tomorrow. SHEILA unwrapped from ankle and patient felt immediate relief, will monitor. Admission and Anticipated Discharge Date Admission Date: March 22, 2020 Subjective POD #1, Main issue is pain. Denies SOB, CP, N/V, dizziness. Wishes OPPT on Discharge. INR 1.1 Drain output 600 cc's last recorded. C/o of right ankle discomfort, has had ankle surgery in the past. Physical Exam Physical Exam: Right knee dressings c/d/i. Toes/ ankle mobile. No calf tenderness Right ankle mild swelling, skin/ old scars benign, N/V+ A&Ox3. Results & Data ([facility]) Vital Signs (Past 12 Hours) Vital Signs Temp Pulse Resp BP Pulse Ox 03/23/20 07:38 36.5 C 66 16 157/85 H 100 03/23/20 02:57 36.5 C 71 15 123/74 99 03/22/20 23:01 36.4 C L 67 15 106/68 96
--- NOTE | 2020-03-23 08:14 | Hospitalist Progress Note ---
Date of Service March 23, 2020 Assessment & Plan (1) Osteoarthritis, knee: (2) S/P total knee arthroplasty: - Pain management, bowel regimen and DVT ppx (Coumadin and Lovenox subcu) - PT/OT consults, pt is planning on outpatient therapy with [facility] - H&H 11.1, was 13.9, follow with a.m. labs tomorrow since the patient is on Coumadin - Hemovac drain with 600 mL out overnight, maintain until less output per primary team (3) Diabetes mellitus, type 2: - Continue home metformin - Continue glycemic pharmacy - A1C most recently 5.1, well controlled - HH/DM diet while admitted (4) Paroxysmal A-fib: - Rate controlled - Resume coumadin, continue lovenox 100 mg q12h - INR 1.1, follow with am labs (5) CAD (coronary artery disease): - Cont asa 81 mg daily and atorvastatin and ezitimibe, ranexa, not on BB or LUIS E (6) Aortic stenosis: - Hx of such, noted (7) Hyperlipidemia: - Statin therapy as above DVT ppx: lovenox, coumadin, ambulation CODE: Full Dispo: From home Thank you for involving us in the care of Mr. Coronel. Please do not hesitate to call with questions or concerns. At this time medicine service will sign off. Admission and Anticipated Discharge Date Admission Date: March 22, 2020 Subjective The patient was seen and examined this morning. Patient reports feeling well, his knee pain is very well controlled at this point status post surgery. He has been eating and drinking without any difficulty. Patient has been ambulating about the room and has very minimal pain with this. BM was yesterday. Plans to have PT/OT therapy in [facility]. Patient denies any acute complaints. Review of Systems Review of Systems: Constitutional: No fever, sweats or chills Eyes: No diplopia, no worsening or blurred vision ENT: normal hearing, no trouble swallowing Respiratory: No cough, sputum, dyspnea at rest or on exertion Cardiovascular: No chest pain, tightness or palpitations Abdomen: No pain, nausea, vomiting, diarrhea or constipation Musculoskeletal: + Normal right-sided knee pain. Otherwise no joint pain, calf pain, swelling Neurologic: No weakness, numbness/tingling, or balance problems Psychiatric: No anxiety or depression Skin: No rash or itch Physical Exam Physical Exam: General: awake, alert, no apparent distress Head: Normocephalic, atraumatic ENT: PERRL, EOMI, no pharyngeal exudate, mucous membranes moist Chest: Clear to auscultation, on room air, no adventitious breath sounds Cardiac: Regular rate and rhythm, no murmur, no JVD, normal peripheral pulses, good capillary refill Abdominal: NABS x 4 quadrants, soft, nondistended, nontender to palpation, no rebound or guarding Extremities: + Right knee wrapped in Luis E, +hemovac drain in place, sensation to light touch distally intact, otherwise normal inspection, no peripheral edema or erythema, calfs nontender to palpation Psych: Normal mood and affect Neuro: AAO x 3, strength intact bilaterally and rated 5/5, no motor deficits, speech is clear, no peripheral sensory deficits Results & Data Results & Data ([facility]) Vital Signs (Past 12 Hours) Vital Signs Temp Pulse Resp BP Pulse Ox 03/23/20 07:38 36.5 C 66 16 157/85 H 100 03/23/20 02:57 36.5 C 71 15 123/74 99 03/22/20 23:01 36.4 C L 67 15 106/68 96 PG Care Time/CCT Total # of Minutes Spent Total Time Spent with Patient: Total time spent is greater than 50% in coordination of care (as documented) at patient's floor/unit and/or counseling patient: Coding Level of Care Code 47367 Inpt Consult Level 3 Diagnoses Osteoarthritis, knee M17.10 S/P total knee arthroplasty Z96.659 Diabetes mellitus, type 2 E11.9 Paroxysmal A-fib I48.0 CAD (coronary artery disease) I25.10 Aortic stenosis I35.0 Hyperlipidemia E78.5
[2020-03-23 08:21] VITALS: O2SAT 99
[2020-03-23] MEDS: RANOLAZINE 500 MG ER TAB PO SCH (08:33)
[2020-03-23] MEDS: DOCUSATE SODIUM 100 MG CAP PO SCH (08:35)
[2020-03-23] MEDS: INSULIN ASPART 100 UNITS/ML 3 ML PEN SC SCH ×2 (08:36→13:14)
--- NOTE | 2020-03-23 08:36 | Pharmacy Report ---
Pharmacy Glycemic Short Note 2 - Date of Service March 23, 2020 - Glycemic Short BSG Results (Last 24 hours): 03/22/20 03/22/20 03/22/20 11:24 17:23 20:34 Glucose POC Glucose 133 H 136 H 146 H 03/23/20 06:47 Glucose 138 H POC Glucose OUTPATIENT ANTIDIABETIC REGIMEN: * Metformin 500mg PO QPM * A1c = 5.1% on 02/18/20 ASSESSMENT: * 64 yo "pre-diabetic?" male s/p POD #1 R TKA * Pt with excellent outpatient control per recent A1c. No changes needed to outpatient regimen on DC * Outpatient antidiabetic medication metformin on hold for admission - using NovoLog in its place. * BSGs all in goal range yesterday. Pt did receive DXM preop. No DXM ordered for today. * Will empirically loosen NovoLog parameters now that steroids are not being continued today to prevent hypo. * Pt tolerating PO and renal function WNL - will resume outpatient metformin this evening and continue to taper NovoLog PLAN FOR INPATIENT GLYCEMIC CONTROL: * Outpatient oral diabetes medications * Resume metformin 500mg PO QPM this evening * Will dc CR on NovoLog when Metformin resumes * Basal insulin * N/A - not needed * Bolus insulin: loosen parameters since no steroids today * NovoLog per scale ACHS or Q6hrs while NPO * Goal Range: Low 110 mg/dL - High 140 mg/dL * Correction Factor: 30 mg/dL/unit * Nutritional / Prandial insulin per carb ratio of 1 unit per 10 grams CHO consumed PLAN FOR DISCHARGE: * No changes needed to outpatient regimen. A1c is in goal range for patient based on Age/Co-morbidities.
[2020-03-23] MEDS ORDERED: CHOLECALCIFEROL 1,000 UNITS 25 MCG TAB PO SCH (09:00)
[2020-03-23] MEDS ORDERED: MULTIVITAMIN TAB PO SCH (09:00)
[2020-03-23] MEDS ORDERED: EZETIMIBE 10 MG TABLET PO SCH (09:00)
[2020-03-23] MEDS ORDERED: ASPIRIN 81 MG ECTAB PO SCH (09:00)
[2020-03-23 13:35] VITALS: BP 174/88
[2020-03-23] MEDS ORDERED: metFORMIN HCL 500 MG TAB PO SCH (16:30)
[2020-03-24] MEDS ORDERED: WARFARIN SOD 2 MG TAB PO SCH (16:00)
[2020-03-25] MEDS ORDERED: WARFARIN SOD 4 MG TAB PO SCH (16:00)
--- NOTE | 2020-04-04 18:45 | Discharge Summary (DS) ---
HISTORY OF PRESENT ILLNESS: This is a 64-year-old male patient of Dr. Najera'sharonda complaining of chronic right knee pain, longstanding, now progressively getting worse. The patient has failed conservative treatment and elected to proceed with a right total knee arthroplasty. PAST MEDICAL HISTORY: Angina, heart murmur, otherwise a healthy 64-year-old male. POSTOPERATIVE COURSE: The patient underwent a right total knee arthroplasty on 03/22/2020. He was followed closely with medical consultation, physical therapy, pain control and DVT prophylaxis in the form of Coumadin with Lovenox bridging until his INR is therapeutic. The patient did very well postoperatively. He had no issues and was discharged home on postoperative day #1. PHYSICAL EXAMINATION: On discharge, right knee dressings were clean, dry and intact. There was no redness or drainage. Toes and ankle were mobile. He has no calf tenderness. Negative Homans sign. Neurologically and neurovascularly, he is intact in his right lower extremity. DIAGNOSES: Status post right total knee arthroplasty, history of angina, and heart murmur. PLAN: The patient was discharged home on postoperative day #1. He will continue his preadmission medications including his Coumadin with Lovenox bridging. His INR on discharge was 1.1. So he will continue the Lovenox until his family physician feels that his INR is therapeutic. The patient's hemoglobin on discharge was 11.1 and stable. He will add pain medications to his regimen. Otherwise, he will follow up as scheduled as an outpatient.
== END 2020-03-23 14:45 | disposition home or self-care (01) | DRG 470 ==
LOC: ASU 05:02 → 3E 05:02
DX: Z79.01 Long term (current) use of anticoagulants; I25.10 Atherosclerotic heart disease of native coronary artery without angina pectoris; Z79.1 Long term (current) use of non-steroidal anti-inflammatories (NSAID); E11.9 Type 2 diabetes mellitus without complications; Z95.2 Presence of prosthetic heart valve; Z79.84 Long term (current) use of oral hypoglycemic drugs; M17.11 Unilateral primary osteoarthritis, right knee; Z95.5 Presence of coronary angioplasty implant and graft; E78.5 Hyperlipidemia, unspecified; Z79.82 Long term (current) use of aspirin; I48.0 Paroxysmal atrial fibrillation; Z87.891 Personal history of nicotine dependence; Z98.890 Other specified postprocedural states; Z79.899 Other long term (current) drug therapy

== ENCOUNTER 2020-03-28 13:54 | Inpatient (IN) ==
[2020-03-28] MEDS ORDERED: ACETAMINOPHEN 1,000 MG/100 ML VIAL IV STA (15:12)
[2020-03-28] MEDS ORDERED: HYDROmorphone INJ 0.5 MG/0.5 ML SYR IV PRN (15:12)
[2020-03-28] MEDS ORDERED: ONDANSETRON INJ 2 MG/ML 2 ML VIAL IV STA (15:12)
[2020-03-28] MEDS ORDERED: SODIUM CHLORIDE 0.9% 250 ML IV PRN ×2 (15:14→17:35)
[2020-03-28 15:55] LABS: Hematocrit (blood only) 20.4 % (42-52); Hemoglobin 6.7 g/dL (14.0-18.0); Mean Corpuscular Hemoglobin 30.6 pg (25-34); Mean Corpuscular Hgb Conc 32.8 g/dL (32-36); Mean Corpuscular Volume 93.2 fL (80-100); Mean Platelet Volume 10.1 fL (7.4-10.4); Nucleated RBC # (auto) 0.05 K/uL (0-0); Nucleated RBC % (auto) 0.6 %; Platelet Count 260 K/uL (130-400); RDW Coefficient of Variation 13.5 % (11.5-14.5); RDW Standard Deviation 45.1 fL (36.4-46.3); Red Blood Count 2.19 M/uL (4.7-6.1); White Blood Count 8.83 K/uL (4.8-10.8)
[2020-03-28 16:14] LABS: Basophils # (auto) 0.01 K/uL (0-0.2); Basophils % (auto) 0.1 %; Eosinophils # (auto) 0.02 K/uL (0-0.5); Eosinophils % (auto) 0.2 %; Immature Granulocytes # (auto) 0.04 K/uL (0.00-0.02); Immature Granulocytes % (auto) 0.5 %; Lymphocytes # (auto) 0.75 K/uL (1.2-3.4); Lymphocytes % (auto) 8.5 %; Monocytes # (auto) 1.27 K/uL (0.11-0.59); Monocytes % (auto) 14.4 %; Neutrophils # (auto) 6.74 K/uL (1.4-6.5); Neutrophils % (auto) 76.3 %; Polychromasia 1+
[2020-03-28 16:16] LABS: INR 1.6 (0.9-1.1); Partial Thromboplastin Ratio 1.9; Prothrombin Time 16.1 Seconds (9.0-12.0)
[2020-03-28 16:40] LABS: Alanine Aminotransferase 46 U/L (12-78); Albumin Level 2.8 gm/dl (3.4-5.0); Aspartate Aminotransferase 39 U/L (15-37); BUN Creatinine Ratio 14.6 (10-20); Blood Urea Nitrogen 14 mg/dl (7-18); Calcium 8.6 mg/dl (8.5-10.1); Carbon Dioxide 24 mmol/L (21-32); Chloride 103 mmol/L (98-107); Creatinine Clr Calc Pharmacy 87.8 ml/min; Est GFR (African American) 95.9; Est GFR (Non-African American) 82.7; Glucose 120 mg/dl (70-99); Potassium 3.8 mmol/L (3.5-5.1); Sodium 136 mmol/L (136-145)
[2020-03-28 16:40] LABS: Appearance Urine Clear (Clear); Bacteria Urine Automated Negative (Negative); Blood Urine Negative (Negative); Color Urine Orange; Glucose Urine UA Negative (Negative); Ketones Urine Negative (Negative); Leukocyte Esterase Urine Trace (Negative); Nitrite Urine Negative (Negative); Protein Urine 1+ (Negative); RBC Urine Automated 0-4 /hpf (0-4); Specific Gravity Urine 1.029 (1.000-1.030); Urobilinogen Urine Positive (Negative); pH Urine 5.5 (4.5-7.5)
[2020-03-28 16:45] LABS: Albumin Globulin Ratio 0.8 (0.9-2); Alkaline Phosphatase 104 U/L (45-117); Bilirubin,Total 1.9 mg/dl (0.2-1); Globulin 3.6 gm/dl (2.5-4.0); Partial Thromboplastin Time 52.2 Seconds (21.0-31.0); Total Protein 6.4 gm/dl (6.4-8.2); Troponin I < 0.015 ng/ml (0-0.045)
[2020-03-28 16:49] LABS: Bilirubin Urine Negative (Negative); Ictotest Urine Negative (Negative)
--- NOTE | 2020-03-28 16:56 | History & Physical Report ---
Date of Service March 28, 2020 Assessment & Plan (1) S/P total knee arthroplasty: - Admit for acute hemorrhage, s/p TKA on 03/22/20 - Blood consent obtained, transfuse 2 U PRBCs now for Hgb of 6.7 on admission along with ongoing oozing of blood in the setting of anticoagulation; during [facility] hospital stay hgb was 11.1. - Ortho consulted - discussed with Dr. Najera - do not remove bandage, hold lovenox and coumadin for now, transfuse - EKG reviewed in NSR, on coumadin for paroxysmal afib - Trend H&H Q6h next set at 0000 -Pain control as needed (2) Acute blood loss anemia: As above Transfusing Follow CBC serially (3) Hemorrhage secondary to anti-coagulation: As above Holding Lovenox and Coumadin No need to reverse Coumadin at this point (4) CAD (coronary artery disease): -Okay to continue asa given history of 5 stents in the past in 2018 -Continue atorvastatin 80 mg daily, ranexa He [place] cardiology in [place] which [place] 2 [place] away (5) Aortic stenosis: - hx of such now status post bioprosthetic AVR, murmur on exam (6) Paroxysmal A-fib: In a normal sinus rhythm here at this time so okay to hold anticoagulation given significant bleeding and acute blood loss anemia ECG with minor ST and T wave changes likely secondary to severe anemia, but patient denies chest pain and troponin is negative - Holding coumadin and bridging Lovenox secondary to acute bleed as above Would likely be okay to restart Coumadin in a couple of days but would do so without Lovenox bridging (7) Hyperlipidemia: - Cont statin as above, as well as ezetimibe (8) Diabetes mellitus, type 2: - Holding metformin, ISS with accuchecks ACHS Hemoglobin A1c only 5.1% on preoperative labs 1 month ago (9) Elevated bilirubin: Bilirubin elevated at 1.9 Unclear what baseline is Check LFTs with direct bilirubin in the morning Could be Gilbert's (10) DVT prophylaxis: DVT ppx: teds, scds, no chemical anticoagulation secondary to bleed CODE: Full Dispo: From home, likely to remain in the hospital x 2 days History of Present Illness Chief Complaint: Lightheadedness, anemia, bleeding from knee Primary Care Provider: Tori Spangler This is a 64 yo M with PMHx of Aortic Stenosis requiring bioprosthesis AVR (2018), CAD, HTN, HLD, Afib on Coumadin, Hiatal Hernia, Obesity, L2-S1 spinal decompression and L3-S1 fusion in August 29, and OA of right knee requiring TKA. Patient is 6 days post right knee arthroplasty completed on 02/20/[address] Najera now with hemoglobin of 6.7, on Coumadin (AFIB) and Lovenox (Bridge); pts Hgb was 11.1 on day of discharge postoperatively last week. Patient comes to the EMD today for complaints of dizziness, weakness and fatigue when getting up and ambulating. He denies chest pain or shortness of breath. Pt went to [facility] yesterday as he felt lightheaded and dizzy, and was sent home from their ER with referral to his orthopedic surgeon. He reports having the drain in place until yesterday. After the removal of the drain, bandages continued to become saturated with blood and required frequent changes. Dr. Najera has recommended that the bandage over the wound not be removed, and that he is transfused. Allergies Allergy/AdvReac Type Severity Reaction Status Date / Time No Known Allergies Allergy Verified 03/22/20 05:43 Home Medications Medication Instructions Recorded Confirmed Type atorvastatin 80 mg PO PM 07/08/19 03/28/20 History cholecalciferol (vitamin D3) 2,000 unit PO QAM 07/08/19 03/28/20 History [Vitamin D3] ezetimibe [Zetia] 10 mg PO QAM 07/08/19 03/28/20 History metformin 500 mg PO QPM 07/08/19 03/28/20 History ranolazine [Ranexa] 1,000 mg PO BID 07/08/19 03/28/20 History warfarin 2 - 4 mg PO .HOLD 07/08/19 03/28/20 History aspirin 81 mg PO QAM 02/11/20 03/28/20 History oxycodone 5 mg PO Q4H PRN #30 tab 03/23/20 03/28/20 Rx acetaminophen 1,000 mg PO Q8 PRN 03/28/20 03/28/20 History Past Med/Surg History Medical History (Updated 03/29/20 @ 01:07 by Libby Rogers MD) Aortic stenosis S/P bioprosthetic AV. Echo 07/13/18 showed moderate and mild meryl- prosthetic regurgitation. PAKO 1.1cm2. MG 25.37 mmHg. CAD (coronary artery disease) Total of 5 cardiac stents. Most recent cath 2018 prior to AVR. Hiatal hernia Hyperlipidemia Hypertension Paroxysmal A-fib ON WARFARIN Prediabetes Surgical History (Updated 03/29/20 @ 00:58 by Libby Rogers MD) Fusion of spine GLIDESCOPE #4, 08/23/19. History of arthroscopy RIGHT KNEE History of cardiac cath -TOTAL 5 STENTS-LAST CARDIAC CATH 2018 PRIOR TO AVR History of colonoscopy History of heart valve replacement AVR-2018 [facility] History of myringotomy History of total shoulder replacement RT Hx of tonsillectomy S/P total knee arthroplasty Status post lumbar surgery [place] teeth removed Family History Sister Family history of reaction to anesthesia PONV Mother Family history of diabetes mellitus Father Family history of diabetes mellitus Social History Smoking Status: Never smoker Second Hand Exposure: No; Hx Alcohol Use: Yes Alcohol type: beer Hx Substance Use: No Preferred Language: Wolof Communication Ability: Effective It Engineer Required: No Beliefs That Will Affect Care: None marital status: Current Living Situation: Spouse Feels Safe at Home: Yes Safety Concerns: Feels Safe At This Time Assistive Devices: Walker Review of Systems Review of Systems: Constitutional: No fever, sweats or chills, + lightheadedness, +dizziness with standing and walking Eyes: No diplopia, no worsening or blurred vision ENT: normal hearing, no trouble swallowing Respiratory: + SHERIDAN on exertion, No cough, sputum, dyspnea at rest Cardiovascular: No chest pain, tightness or palpitations Abdomen: No pain, nausea, vomiting, diarrhea or constipation Musculoskeletal: No joint pain, calf pain, swelling Neurologic: + generalized weakness, +numbness/tingling in RLE, or balance pro blems, no falls or trauma Psychiatric: No anxiety or depression Skin: No rash or itch Physical Exam Physical Exam: General: awake, alert, no apparent distress, + pallor Head: Normocephalic, atraumatic ENT: PERRL, EOMI, no pharyngeal exudate, mucous membranes moist Chest: Clear to auscultation, on room air, no adventitious breath sounds Cardiac: Regular rate and rhythm, + loud systolic murmur III/, no JVD, + weak pulse in R dorsalis pedis, otherwise pulses intact, good capillary refill Abdominal: NABS x 4 quadrants, soft, nondistended, nontender to palpation, no rebound or guarding Extremities: R leg in brace, LUIS E wrap in place, dressing c/d/i, no saturation at this time. Otherwise normal inspection, no peripheral edema or erythema, calfs nontender to palpation Psych: Normal mood and affect Neuro: AAO x 3, strength intact bilaterally and rated 5/5, no motor deficits, speech is clear, no peripheral sensory deficits Results & Data Results & Data ([facility]) Vital Signs (Past 12 Hours) Vital Signs Temp Pulse Pulse Resp BP BP Pulse Ox 03/28/20 16:48 83 16 105/61 98 03/28/20 15:35 80 16 112/62 97 03/28/20 13:57 37.4 C 68 18 142/76 H 95 Laboratory Results 03/28/20 03/28/20 03/28/20 Range/Units 20:59 15:37 15:28 WBC (4.8-10.8) K/uL RBC (4.7-6.1) M/uL Hgb (14.0-18.0) g/dL Hct (42-52) % MCV (80-100) fL MCH (25-34) pg MCHC (32-36) g/dL RDW Std Deviation (36.4-46.3) fL RDW Coeff of Hernando (11.5-14.5) % Plt Count (130-400) K/uL MPV (7.4-10.4) fL Immature Gran % (Auto) % Neut % (Auto) % Lymph % (Auto) % Greene % (Auto) % Eos % (Auto) % Baso % (Auto) % Neut # (Auto) (1.4-6.5) K/uL Lymph # (Auto) (1.2-3.4) K/uL Greene # (Auto) (0.11-0.59) K/uL Eos # (Auto) (0-0.5) K/uL Baso # (Auto) (0-0.2) K/uL Immature Gran # (Auto) (0.00-0.02) K/uL Absolute Nucleated RBC (0-0) K/uL Nucleated RBC % (auto) % Polychromasia PT (9.0-12.0) Seconds INR (0.9-1.1) APTT (21.0-31.0) Seconds PTT Ratio Heparin Anti-Xa, LM Wt 0.86 (< 0.10) IU/ML Sodium (136-145) mmol/L Potassium (3.5-5.1) mmol/L Chloride (98-107) mmol/L Carbon Dioxide (21-32) mmol/L Anion Gap (3-11) BUN (7-18) mg/dl Creatinine (0.6-1.4) mg/dl Est Cr Clr Drug Dosing ml/min Est GFR ( Amer) Est GFR (Non-Af Amer) BUN/Creatinine Ratio (10-20) Glucose (70-99) mg/dl POC Glucose 129 H (70-99) mg/dl Calcium (8.5-10.1) mg/dl Total Bilirubin (0.2-1) mg/dl AST (15-37) U/L ALT (12-78) U/L Alkaline Phosphatase (45-117) U/L Troponin I (0-0.045) ng/ml Total Protein (6.4-8.2) gm/dl Albumin (3.4-5.0) gm/dl Globulin (2.5-4.0) gm/dl Albumin/Globulin Ratio (0.9-2) Urine Color [place] Urine Appearance Clear (Clear) Urine pH 5.5 (4.5-7.5) Ur Specific [place] 1.029 (1.000-1.030) Urine Protein 1+ H (Negative) Urine Glucose (UA) Negative (Negative) Urine Ketones Negative (Negative) Urine Blood Negative (Negative) Urine Nitrite Negative (Negative) Urine Bilirubin Negative (Negative) Urine Urobilinogen Positive H (Negative) Ur Leukocyte Esterase Trace H (Negative) Urine WBC (Auto) 1-5 (0-5) /hpf Urine RBC (Auto) 0-4 (0-4) /hpf U Hyaline Cast (Auto) 5-10 H (0-5) /lpf U Epithel Cells (Auto) 10-20 H (0-5) /lpf Urine Bacteria (Auto) Negative (Negative) Blood Type Antibody Screen Crossmatch 03/28/20 03/28/20 03/28/20 Range/Units 15:25 15:25 15:25 WBC 8.83 (4.8-10.8) K/uL RBC 2.19 L (4.7-6.1) M/uL Hgb 6.7 L* (14.0-18.0) g/dL Hct 20.4 L* (42-52) % MCV 93.2 (80-100) fL MCH 30.6 (25-34) pg MCHC 32.8 (32-36) g/dL RDW Std Deviation 45.1 (36.4-46.3) fL RDW Coeff of Hernando 13.5 (11.5-14.5) % Plt Count 260 (130-400) K/uL MPV 10.1 (7.4-10.4) fL Immature Gran % (Auto) 0.5 % Neut % (Auto) 76.3 % Lymph % (Auto) 8.5 % Greene % (Auto) 14.4 % Eos % (Auto) 0.2 % Baso % (Auto) 0.1 % Neut # (Auto) 6.74 H (1.4-6.5) K/uL Lymph # (Auto) 0.75 L (1.2-3.4) K/uL Greene # (Auto) 1.27 H (0.11-0.59) K/uL Eos # (Auto) 0.02 (0-0.5) K/uL Baso # (Auto) 0.01 (0-0.2) K/uL Immature Gran # (Auto) 0.04 H (0.00-0.02) K/uL Absolute Nucleated RBC 0.05 H (0-0) K/uL Nucleated RBC % (auto) 0.6 % Polychromasia 1+ PT 16.1 H (9.0-12.0) Seconds INR 1.6 H (0.9-1.1) APTT 52.2 H* (21.0-31.0) Seconds PTT Ratio 1.9 Heparin Anti-Xa, LM Wt (< 0.10) IU/ML Sodium 136 (136-145) mmol/L Potassium 3.8 (3.5-5.1) mmol/L Chloride 103 (98-107) mmol/L Carbon Dioxide 24 (21-32) mmol/L Anion Gap 9.0 (3-11) BUN 14 (7-18) mg/dl Creatinine 0.97 (0.6-1.4) mg/dl Est Cr Clr Drug Dosing 87.8 ml/min Est GFR ( Amer) 95.9 Est GFR (Non-Af Amer) 82.7 BUN/Creatinine Ratio 14.6 (10-20) Glucose 120 H (70-99) mg/dl POC Glucose (70-99) mg/dl Calcium 8.6 (8.5-10.1) mg/dl Total Bilirubin 1.9 H (0.2-1) mg/dl AST 39 H (15-37) U/L ALT 46 (12-78) U/L Alkaline Phosphatase 104 (45-117) U/L Troponin I < 0.015 (0-0.045) ng/ml Total Protein 6.4 (6.4-8.2) gm/dl Albumin 2.8 L (3.4-5.0) gm/dl Globulin 3.6 (2.5-4.0) gm/dl Albumin/Globulin Ratio 0.8 L (0.9-2) Urine Color Urine Appearance (Clear) Urine pH (4.5-7.5) Ur Specific [place] (1.000-1.030) Urine Protein (Negative) Urine Glucose (UA) (Negative) Urine Ketones (Negative) Urine Blood (Negative) Urine Nitrite (Negative) Urine Bilirubin (Negative) Urine Urobilinogen (Negative) Ur Leukocyte Esterase (Negative) Urine WBC (Auto) (0-5) /hpf Urine RBC (Auto) (0-4) /hpf U Hyaline Cast (Auto) (0-5) /lpf U Epithel Cells (Auto) (0-5) /lpf Urine Bacteria (Auto) (Negative) Blood Type Antibody Screen Crossmatch 03/28/20 Range/Units 15:25 WBC (4.8-10.8) K/uL RBC (4.7-6.1) M/uL Hgb (14.0-18.0) g/dL Hct (42-52) % MCV (80-100) fL MCH (25-34) pg MCHC (32-36) g/dL RDW Std Deviation (36.4-46.3) fL RDW Coeff of Hernando (11.5-14.5) % Plt Count (130-400) K/uL MPV (7.4-10.4) fL Immature Gran % (Auto) % Neut % (Auto) % Lymph % (Auto) % Greene % (Auto) % Eos % (Auto) % Baso % (Auto) % Neut # (Auto) (1.4-6.5) K/uL Lymph # (Auto) (1.2-3.4) K/uL Greene # (Auto) (0.11-0.59) K/uL Eos # (Auto) (0-0.5) K/uL Baso # (Auto) (0-0.2) K/uL Immature Gran # (Auto) (0.00-0.02) K/uL Absolute Nucleated RBC (0-0) K/uL Nucleated RBC % (auto) % Polychromasia PT (9.0-12.0) Seconds INR (0.9-1.1) APTT (21.0-31.0) Seconds PTT Ratio Heparin Anti-Xa, LM Wt (< 0.10) IU/ML Sodium (136-145) mmol/L Potassium (3.5-5.1) mmol/L Chloride (98-107) mmol/L Carbon Dioxide (21-32) mmol/L Anion Gap (3-11) BUN (7-18) mg/dl Creatinine (0.6-1.4) mg/dl Est Cr Clr Drug Dosing ml/min Est GFR ( Amer) Est GFR (Non-Af Amer) BUN/Creatinine Ratio (10-20) Glucose (70-99) mg/dl POC Glucose (70-99) mg/dl Calcium (8.5-10.1) mg/dl Total Bilirubin (0.2-1) mg/dl AST (15-37) U/L ALT (12-78) U/L Alkaline Phosphatase (45-117) U/L Troponin I (0-0.045) ng/ml Total Protein (6.4-8.2) gm/dl Albumin (3.4-5.0) gm/dl Globulin (2.5-4.0) gm/dl Albumin/Globulin Ratio (0.9-2) Urine Color Urine Appearance (Clear) Urine pH (4.5-7.5) Ur Specific [place] (1.000-1.030) Urine Protein (Negative) Urine Glucose (UA) (Negative) Urine Ketones (Negative) Urine Blood (Negative) Urine Nitrite (Negative) Urine Bilirubin (Negative) Urine Urobilinogen (Negative) Ur Leukocyte Esterase (Negative) Urine WBC (Auto) (0-5) /hpf Urine RBC (Auto) (0-4) /hpf U Hyaline Cast (Auto) (0-5) /lpf U Epithel Cells (Auto) (0-5) /lpf Urine Bacteria (Auto) (Negative) Blood Type A Positive Antibody Screen NEGATIVE Crossmatch See Detail ECG Additional Comments: ECG on 03/28/2020 at 1535 with normal sinus rhythm, mild ST depression in lateral leads, nonspecific T wave abnormality in inferior and lateral leads changed from previous Code Status & VTE Plan Code Status Full code- discussed with the pt at bedside Supervising Physician Co-Signing Physician Notes PA Supervision Note: I personally saw and examined the patient. I verified all andrade points and agree with VALENTINO Mendoza with the following exceptions and/or additions: This patient is a 64 old male with a history of bioprosthetic AVR, CAD status post 5 stents, hyperlipidemia, HTN, prediabetes, and recent TKA here with symptomatic acute blood loss anemia secondary to hemorrhage from the right knee at the site of surgery. He has been on bridging therapeutic Lovenox while awaiting his INR to become therapeutic on his Coumadin. He started noticing that he was getting lightheaded the last 24 hours and continued to have excessive bleeding from the right knee wound. He was seen by his orthopedic surgeon today who redressed the wound and noted significant drainage and some blisters around the wounds due to damp skin. He had his hemoglobin checked as an outpatient it was 6.1 and repeat here in the ER was 6.7 down from 11.11-week ago. He will be admitted for acute blood loss anemia secondary to hemorrhage from knee in setting of anticoagulation. History and ROS reviewed as above Vitals reviewed Gen: AAOx3, NAD HEENT: Anicteric sclerae, EOMI CV: RRR 3/6 LISA at RUSB, S2 click Pulm: CTAB no wcr Abd: +BS soft NT ND no masses or hernias Ext: Right knee with large Luis E wrap that is bulky in place with knee immobilizer in place not removed, he is able to flex and extend his right ankle and toes and has sensation distally in both feet Skin: No rashes, warm/dry Neuro: Full strength throughout except not tested right lower extremity Laboratory values reviewed ECG reviewed 64-year-old male here with acute blood loss anemia as above Plan outlined as above and notations/changes made to assessment and plan as above PG Care Time/CCT Total # of Minutes Spent Total Time Spent with Patient: Total time spent is greater than 50% in coordination of care (as documented) at patient's floor/unit and/or counseling patient: Coding Level of Care Code 96809 Initial Inpt Care Lvl 3 Diagnoses S/P total knee arthroplasty Z96.659 Acute blood loss anemia D62 Hemorrhage secondary to anti-coagulation T45.7X1A; D68.9 CAD (coronary artery disease) I25.10 Aortic stenosis I35.0 Paroxysmal A-fib I48.0 Hyperlipidemia E78.5 Diabetes mellitus, type 2 E11.9 Elevated bilirubin R17 DVT prophylaxis Z29.9
--- NOTE | 2020-03-28 17:06 | Electrocardiogram Report ---
Test Reason : Blood Pressure : / mmHG Vent. Rate : 078 BPM Atrial Rate : 078 BPM P-R Int : 118 ms QRS Dur : 088 ms QT Int : 372 ms P-R-T Axes : 074 031 -44 degrees QTc Int : 424 ms Normal sinus rhythm Possible Left atrial enlargement Nonspecific ST and T wave abnormality Abnormal ECG When compared with ECG of 15-JUL-2019 13:56, ST now depressed in Lateral leads Nonspecific T wave abnormality now evident in Inferior leads Nonspecific T wave abnormality, worse in Lateral leads Confirmed by Aleksandr Kelley ([id number]) on 03/28/2020 5:06:17 PM Referred By: Jeremy Najera Confirmed By:Aleksandr Kelley
--- NOTE | 2020-03-28 18:07 | Orthopedic Consultation ---
Date of Consultation March 28, 2020 Assessment & Plan (1) S/P total knee arthroplasty: Status post total knee replacement. Bleeding complications more than typical and related to choice of anticoagulation due to heart condition. With regard to activity with regard to knee replacement patient will have no physical therapy for any range of motion. The knee dressing needs to be maintained intact for 48 hours and then will do a dressing change. Patient needs knee immobilizer on at all times with knee in full extension. Appropriate heel precautions to be performed. Patient to be weightbearing as tolerated with knee immobilizer and a walker. KINGS hose on opposite leg. (2) Hemorrhage secondary to anti-coagulation: Lovenox must be discontinued. Coumadin can be continued avoid over anticoagulation. Present INR acceptable. History of Present Illness History of Present Illness 64-year-old male who I performed a total knee replacement on approximately 6 days ago. Because of his medical issues he was on Coumadin preoperatively and required preop and postop bridging with Lovenox. Patient developed excessive bleeding and some lightheadedness. He was evaluated and treated at [facility] and referred to the emergency room for emergency blood tests. Allergies Allergy/AdvReac Type Severity Reaction Status Date / Time No Known Allergies Allergy Verified 03/22/20 05:43 Home Medications Medication Instructions Recorded Confirmed Type atorvastatin 80 mg PO PM 07/08/19 03/28/20 History cholecalciferol (vitamin D3) 2,000 unit PO QAM 07/08/19 03/28/20 History [Vitamin D3] ezetimibe [Zetia] 10 mg PO QAM 07/08/19 03/28/20 History metformin 500 mg PO QPM 07/08/19 03/28/20 History ranolazine [Ranexa] 1,000 mg PO BID 07/08/19 03/28/20 History warfarin 2 - 4 mg PO .HOLD 07/08/19 03/28/20 History aspirin 81 mg PO QAM 02/11/20 03/28/20 History oxycodone 5 mg PO Q4H PRN #30 tab 03/23/20 03/28/20 Rx acetaminophen 1,000 mg PO Q8 PRN 03/28/20 03/28/20 History Patient History Medical History (Updated 03/28/20 @ 18:04 by Jeremy Najera MD) Aortic stenosis S/P bioprosthetic AV. Echo 07/13/18 showed moderate and mild meryl-pr osthetic regurgitation. PAKO 1.1cm2. MG 25.37 mmHg. CAD (coronary artery disease) Total of 5 cardiac stents. Most recent cath 2018 prior to AVR. Hiatal hernia Hyperlipidemia Hypertension Paroxysmal A-fib ON WARFARIN Prediabetes Surgical History Fusion of spine GLIDESCOPE #4, 08/23/19. History of arthroscopy RIGHT KNEE History of cardiac cath -TOTAL 5 STENTS-LAST CARDIAC CATH 2018 PRIOR TO AVR History of colonoscopy History of heart valve replacement AVR-2018 [facility] History of myringotomy History of total shoulder replacement RT Hx of tonsillectomy [facility] teeth removed Family History Sister Family history of reaction to anesthesia PONV Mother Family history of diabetes mellitus Father Family history of diabetes mellitus Social History Smoking Status: Never smoker Second Hand Exposure: No; Hx Alcohol Use: Yes Alcohol type: beer Hx Substance Use: No Preferred Language: Andorran Communication Ability: Effective [employer] Required: No Beliefs That Will Affect Care: None marital status: Current Living Situation: Family Feels Safe at Home: Yes Assistive Devices: None Review of Systems Review of Systems: No chest pain shortness of breath but does have lightheadedness when he stands up Physical Exam Physical Exam: Right lower extremity exam demonstrated that his Silverlon dressing was saturated so he took that off and he had leaking out of his incision with bleeding at the lower incision and out of the drain holes. There was no pulsatile bleeding and this looked like bleeding related to over anticoagulation. Patient had several fractures of blisters around the area where the Silverlon bandage adhesive was attached to the skin due to underlying swelling and traction on the skin. Several of these blisters had blood type fluid within the blisters. Some a clear fluid. There was no pus no signs of infection no erythema. Patient had normal temperature. Patient had a slightly cool foot normal capillary refill no tightness of any of his compartments. There was a green discoloration of toes due to the ChloraPrep antiseptic from the surgery. There was moderately significant edema around the knee area mainly but some in the distal leg as well consistent with postop bleeding more than typical. Results & Data ([facility]) Vital Signs (Past 12 Hours) Vital Signs Temp Pulse Pulse Resp BP BP Pulse Ox 03/28/20 17:56 37.3 C 76 18 97/51 L 99 03/28/20 16:48 83 16 105/61 98 03/28/20 15:35 80 16 112/62 97 03/28/20 13:57 37.4 C 68 18 142/76 H 95 outside results from ER visit demonstrated he had arterial Dopplers demonstrating intact vascular flow with normal findings in the distal leg of the affected leg. He did have a complex popliteal cyst which would be consistent with postoperative bleeding status post recent knee replacement.
[2020-03-28] MEDS ORDERED: GLUCAGON FOR INJ 1 MG VIAL SQ PRN (19:12)
[2020-03-28] MEDS ORDERED: DEXTROSE 50% 50 ML SYRINGE IV PRN (19:12)
[2020-03-28] MEDS ORDERED: GLUCOSE 40% GEL 15 GM TUBE PO PRN (19:12)
[2020-03-28] MEDS ORDERED: GLUCOSE 10 TABS/TUBE PO PRN (19:12)
[2020-03-28] MEDS ORDERED: CARBOHYDRATES FOR HYPOGLYCEMIA PO PRN (19:12)
[2020-03-28] MEDS ORDERED: bisacodyL 5 MG TABEC PO PRN (19:12)
[2020-03-28] MEDS ORDERED: ACETAMINOPHEN 325 MG TAB PO PRN (19:12)
--- NOTE | 2020-03-28 20:19 | Emergency Department Note ---
History of Present Illness General Chief complaint: Abnormal Labs/Diagnostic Testing Stated complaint: SENT BY FOR BLOOD TRANSFUSION Time Seen by Provider: 03/28/20 15:08 Source: patient, RN notes reviewed and old records reviewed Mode of arrival: wheelchair Limitations: no limitations History of Present Illness Provider complaint: Anemia Onset (ago): day(s) 2 Radiation: non-radiation Severity: mild Pain Consistency: + intermittent Maximum Pain Intensity: 3 Current Pain Intensity: 3 Quality: + aching Relieved By: + immobilization Exacerbated By: + movement Associated symptoms: + weakness; no chest pain, no fever/chills, no nausea/vomiting and no shortness of breath Treatments prior to arrival: none This is a 64-year-old male who presents emergency department with concerns of the patient is anemic. Patient recently had surgery on her right knee. He was seen at [facility] today over concerns of the patient felt weak and dizzy anytime he stood up. [facility] took a look at the knee and a concern about the amount of blood that the patient has lost. He was found to be anemic on laboratory work today. The patient is taking Lovenox as well as Coumadin. He is complaining of pain to the knee which she reports is made worse with movement however immobilization makes the pain better. There is a dressing already present on the knee and he has instructions not to remove the dressing. Home Medications Medication Instructions Recorded Confirmed Type atorvastatin 80 mg PO PM 07/08/19 03/28/20 History cholecalciferol (vitamin D3) 2,000 unit PO QAM 07/08/19 03/28/20 History [Vitamin D3] ezetimibe [Zetia] 10 mg PO QAM 07/08/19 03/28/20 History metformin 500 mg PO QPM 07/08/19 03/28/20 History ranolazine [Ranexa] 1,000 mg PO BID 07/08/19 03/28/20 History warfarin 2 - 4 mg PO .HOLD 07/08/19 03/28/20 History aspirin 81 mg PO QAM 02/11/20 03/28/20 History oxycodone 5 mg PO Q4H PRN #30 tab 03/23/20 03/28/20 Rx acetaminophen 1,000 mg PO Q8 PRN 03/28/20 03/28/20 History Allergies Allergy/AdvReac Type Severity Reaction Status Date / Time No Known Allergies Allergy Verified 03/22/20 05:43 Past Med/Surg History Medical History (Updated 03/28/20 @ 20:19 by Asim Dasilva MD) Aortic stenosis S/P bioprosthetic AV. Echo 07/13/18 showed moderate and mild meryl- prosthetic regurgitation. PAKO 1.1cm2. MG 25.37 mmHg. CAD (coronary artery disease) Total of 5 cardiac stents. Most recent cath 2018 prior to AVR. Hiatal hernia Hyperlipidemia Hypertension Paroxysmal A-fib ON WARFARIN Prediabetes Surgical History Fusion of spine GLIDESCOPE #4, 08/23/19. History of arthroscopy RIGHT KNEE History of cardiac cath -TOTAL 5 STENTS-LAST CARDIAC CATH 2017 PRIOR TO AVR History of colonoscopy History of heart valve replacement AVR-2018 [facility] History of myringotomy History of total shoulder replacement RT Hx of tonsillectomy [place] teeth removed Family History Sister Family history of reaction to anesthesia PONV Mother Family history of diabetes mellitus Father Family history of diabetes mellitus Social History Smoking Status: Never smoker Second Hand Exposure: No; Hx Alcohol Use: Yes Alcohol type: beer Hx Substance Use: No Preferred Language: Bengali Communication Ability: Effective Asphalt Layer Required: No Beliefs That Will Affect Care: None marital status: Current Living Situation: Spouse Feels Safe at Home: Yes Safety Concerns: Feels Safe At This Time Assistive Devices: Walker Review of Systems A total of 10 systems reviewed and were otherwise negative Physical Exam Vital Signs Vital Signs - 24 hr 03/28/20 13:57 03/28/20 15:35 03/28/20 16:48 Temperature 37.4 C Temperature Source Oral Pulse Rate 68 Pulse Rate [Finger] 80 83 Respiratory Rate 18 16 16 Respiratory Effort / Characteristics Non-Labored Respiratory Depth Normal Blood Pressure 142/76 H Blood Pressure [Left Arm] 112/62 105/61 Blood Pressure Mean 98 Blood Pressure Mean [Left Arm] 78 75 Pulse Oximetry 95 97 98 Oxygen Delivery Method Room Air Room Air Sepsis Recent Fever Within 48 Hours No Sepsis New/Unexplained Change in Mental Status No Sepsis Action Taken by Nursing No Action Required VITAL SIGNS - Vital signs and nursing notes were reviewed. GENERAL - 64-year-old male appearing stated age who is in no acute distress. Communicates well with provider and answers questions appropriately. SKIN - Without rashes. HEAD - NC/AT. EYES - PERRL with EOMI bilaterally. Sclera anicteric. Palpebral conjunctiva pink and moist with no injection noted. EARS - No deformities of external structures noted on gross examination bilaterally. No pain elicited with palpation of the tragus bilaterally. External auditory canals without discharge or otorrhea. Tympanic membranes [place] without retraction or bulging. No fluid or purulent material visualized behind the TM. Handle of malleus, umbo, cone of light, pars tensa/flaccid all easily visualized. NOSE - Midline and without cyanosis. No epistaxis or purulent drainage noted. Septum midline without deviation or septal hematoma noted. MOUTH/OROPHARYNX - Without perioral cyanosis. Buccal mucosa pink and moist and without leukoplakia. Tongue midline with equal elevation of palate bilaterally. No tonsillar hypertrophy, erythema, or exudates noted. dentition noted. NECK - Neck with FROM. Supple to palpation. lymphadenopathy noted. No nuchal rigidity. LUNGS - Chest wall symmetric without accessory muscle use, intercostals retractions, or central cyanosis. Normal vesicular breath sounds CTA B/L. No wheezes, rales, or rhonchi appreciated. CARDIAC - RRR with S1/S2. No murmur, rubs, or gallops appreciated. ABDOMEN - Abdominal contour without pulsations or visible masses. BS normoa ctive all four quadrants. No tenderness, palpable masses, hepatosplenomegaly, or ascites noted. EXTREMITIES - pt has dressing present with knee immobilizer to Rt knee NEUROLOGIC - Cranial nerves II through XII grossly intact. Sensory intact to light touch throughout. Patellar reflexes +2/4. PSYCH - A&Ox3 and cooperates fully with examiner. Pt is very pleasant and interacts well with examiner. Course Administered Medications Discontinued Medications Hydromorphone HCl (Hydromorphone Inj 0.5 Mg/0.5 Ml Syr) 0.5 mg IV Q15M PRN PRN Reason: Pain Stop: 04/11/20 15:11 Last Admin: 03/28/20 16:23 Dose: 0.5 mg Documented by: [id number] Acetaminophen (Ofirmev) 1,000 mg in 100 mls @ 400 mls/hr IV NOW STA Stop: 03/28/20 15:26 Last Infusion: 03/28/20 16:40 Dose: 0 mls/hr Documented by: [id number] Admin: 03/28/20 16:22 Dose: 400 mls/hr Documented by: [id number] Sodium Chloride (Nss) 250 mls @ 15 mls/hr IV .[id number] PRN PRN Reason: For Transfusion Stop: 03/29/20 01:14 Last Admin: 03/28/20 16:23 Dose: 15 mls/hr Documented by: [id number] Ondansetron HCl (Ondansetron Inj 2 Mg/Ml 2 Ml Vial) 4 mg IV NOW STA Stop: 03/28/20 15:13 Last Admin: 03/28/20 16:23 Dose: 4 mg Documented by: [id number] Medical Decision Making Differential Diagnosis Fracture, subluxation, dislocation, contusion, ligamentous injury, neurovascular, compartment syndrome, rhabdomyolysis, as well as other pathologies. Medical Records Attestation: I reviewed the patient's medical records. Home Medications Current Medication List: was personally reviewed by me Laboratory Data Attestation: I reviewed the patient's lab results. Result diagrams: 03/28/20 15:25 03/28/20 15:25 Lab Results 03/28/20 03/28/20 03/28/20 Range/Units 15:25 15:25 15:25 WBC 8.83 (4.8-10.8) K/uL RBC 2.19 L (4.7-6.1) M/uL Hgb 6.7 L* (14.0-18.0) g/dL Hct 20.4 L* (42-52) % MCV 93.2 (80-100) fL MCH 30.6 (25-34) pg MCHC 32.8 (32-36) g/dL RDW Std Deviation 45.1 (36.4-46.3) fL RDW Coeff of [place] 13.5 (11.5-14.5) % Plt Count 260 (130-400) K/uL MPV 10.1 (7.4-10.4) fL Immature Gran % (Auto) 0.5 % Neut % (Auto) 76.3 % Lymph % (Auto) 8.5 % Henry % (Auto) 14.4 % Eos % (Auto) 0.2 % Baso % (Auto) 0.1 % Neut # (Auto) 6.74 H (1.4-6.5) K/uL Lymph # (Auto) 0.75 L (1.2-3.4) K/uL Henry # (Auto) 1.27 H (0.11-0.59) K/uL Eos # (Auto) 0.02 (0-0.5) K/uL Baso # (Auto) 0.01 (0-0.2) K/uL Immature Gran # (Auto) 0.04 H (0.00-0.02) K/uL Absolute Nucleated RBC 0.05 H (0-0) K/uL Nucleated RBC % (auto) 0.6 % Polychromasia 1+ PT 16.1 H (9.0-12.0) Seconds INR 1.6 H (0.9-1.1) APTT 52.2 H* (21.0-31.0) Seconds PTT Ratio 1.9 Heparin Anti-Xa, LM Wt (< 0.10) IU/ML Sodium (136-145) mmol/L Potassium (3.5-5.1) mmol/L Chloride (98-107) mmol/L Carbon Dioxide (21-32) mmol/L Anion Gap (3-11) BUN (7-18) mg/dl Creatinine (0.6-1.4) mg/dl Est Cr Clr Drug Dosing ml/min Est GFR ( Amer) Est GFR (Non-Af Amer) BUN/Creatinine Ratio (10-20) Glucose (70-99) mg/dl Calcium (8.5-10.1) mg/dl Total Bilirubin (0.2-1) mg/dl AST (15-37) U/L ALT (12-78) U/L Alkaline Phosphatase (45-117) U/L Troponin I (0-0.045) ng/ml Total Protein (6.4-8.2) gm/dl Albumin (3.4-5.0) gm/dl Globulin (2.5-4.0) gm/dl Albumin/Globulin Ratio (0.9-2) Urine Color Urine Appearance (Clear) Urine pH (4.5-7.5) Ur Specific [place] (1.000-1.030) Urine Protein (Negative) Urine Glucose (UA) (Negative) Urine Ketones (Negative) Urine Blood (Negative) Urine Nitrite (Negative) Urine Bilirubin (Negative) Urine Urobilinogen (Negative) Ur Leukocyte Esterase (Negative) Urine WBC (Auto) (0-5) /hpf Urine RBC (Auto) (0-4) /hpf U Hyaline Cast (Auto) (0-5) /lpf U Epithel Cells (Auto) (0-5) /lpf Urine Bacteria (Auto) (Negative) Blood Type A Positive Antibody Screen NEGATIVE Crossmatch See Detail 03/28/20 03/28/20 03/28/20 Range/Units 15:25 15:28 15:37 WBC (4.8-10.8) K/uL RBC (4.7-6.1) M/uL Hgb (14.0-18.0) g/dL Hct (42-52) % MCV (80-100) fL MCH (25-34) pg MCHC (32-36) g/dL RDW Std Deviation (36.4-46.3) fL RDW Coeff of [place] (11.5-14.5) % Plt Count (130-400) K/uL MPV (7.4-10.4) fL Immature Gran % (Auto) % Neut % (Auto) % Lymph % (Auto) % Henry % (Auto) % Eos % (Auto) % Baso % (Auto) % Neut # (Auto) (1.4-6.5) K/uL Lymph # (Auto) (1.2-3.4) K/uL Henry # (Auto) (0.11-0.59) K/uL Eos # (Auto) (0-0.5) K/uL Baso # (Auto) (0-0.2) K/uL Immature Gran # (Auto) (0.00-0.02) K/uL Absolute Nucleated RBC (0-0) K/uL Nucleated RBC % (auto) % Polychromasia PT (9.0-12.0) Seconds INR (0.9-1.1) APTT (21.0-31.0) Seconds PTT Ratio Heparin Anti-Xa, LM Wt 0.86 (< 0.10) IU/ML Sodium 136 (136-145) mmol/L Potassium 3.8 (3.5-5.1) mmol/L Chloride 103 (98-107) mmol/L Carbon Dioxide 24 (21-32) mmol/L Anion Gap 9.0 (3-11) BUN 14 (7-18) mg/dl Creatinine 0.97 (0.6-1.4) mg/dl Est Cr Clr Drug Dosing 87.8 ml/min Est GFR ( Amer) 95.9 Est GFR (Non-Af Amer) 82.7 BUN/Creatinine Ratio 14.6 (10-20) Glucose 120 H (70-99) mg/dl Calcium 8.6 (8.5-10.1) mg/dl Total Bilirubin 1.9 H (0.2-1) mg/dl AST 39 H (15-37) U/L ALT 46 (12-78) U/L Alkaline Phosphatase 104 (45-117) U/L Troponin I < 0.015 (0-0.045) ng/ml Total Protein 6.4 (6.4-8.2) gm/dl Albumin 2.8 L (3.4-5.0) gm/dl Globulin 3.6 (2.5-4.0) gm/dl Albumin/Globulin Ratio 0.8 L (0.9-2) Urine Color [place] Urine Appearance Clear (Clear) Urine pH 5.5 (4.5-7.5) Ur Specific [place] 1.029 (1.000-1.030) Urine Protein 1+ H (Negative) Urine Glucose (UA) Negative (Negative) Urine Ketones Negative (Negative) Urine Blood Negative (Negative) Urine Nitrite Negative (Negative) Urine Bilirubin Negative (Negative) Urine Urobilinogen Positive H (Negative) Ur Leukocyte Esterase Trace H (Negative) Urine WBC (Auto) 1-5 (0-5) /hpf Urine RBC (Auto) 0-4 (0-4) /hpf U Hyaline Cast (Auto) 5-10 H (0-5) /lpf U Epithel Cells (Auto) 10-20 H (0-5) /lpf Urine Bacteria (Auto) Negative (Negative) Blood Type Antibody Screen Crossmatch ECG Data Attestation: I personally reviewed and interpreted this ECG as follows: Indication: + weakness Rate (beats per minute): 78 Rhythm: + normal sinus ECG [place]: + Normal ECG ST segments: + ST depression (Lateral) and + T-wave inversions (Inferior) Comparison ECG Date: from (07/15/2019) Change: the following changes noted (T wave inversions in lateral leads, ST depressed in lateral leads) MDM Narrative This is a 64-year-old male who is on both "Coumadin Lovenox presents to the emergency department for concerns of the patient is extremely anemic. Patient was found to have a hemoglobin of 6 today. He was typed and crossed for 1 unit of packed red blood cells here in the emergency department. I did discuss the case with both orthopedics as well as the medicine service who agreed to admit the patient. Patient is in agreement with the treatment plan. Patient was seen and evaluated as above in room C12. Review was performed of nursing notes and vital signs. I did review pertinent previous visits and patient history. After obtaining a thorough history and physical examination the above work up was performed. While in the department, I personally reevaluated the patient several times and each time the patient was found to be resting comfortably. The patient was educated upon management, educated upon todays findings/results, educated upon importance of follow up from today's visit, educated upon symptoms in which to return, had questions answered prior to discharge, verbalized understanding, and was discharged home in good condition. An order was placed for continuous cardiac monitoring. The monitor shows a rate of 80 with Normal SInus rhythm. The patient was evaluated during the global COVID-19 pandemic, and that diagnosis was suspected/considered upon their initial presentation. Their evaluation, treatment and testing was consistent with current guidelines for patients who present with complaints or symptoms that may be related to COVID- 19. Impression & Plan Hemorrhage secondary to anti-coagulation, Paroxysmal A-fib, S/P total knee arthroplasty Discharge Plan Visit Data Chief Complaint: Abnormal Labs/Diagnostic Testing Stated Complaint: SENT BY FOR BLOOD TRANSFUSION ED Provider: Asim Dasilva Discharge Problem: Hemorrhage secondary to anti-coagulation, Paroxysmal A-fib, S/P total knee arthroplasty Patient Disposition: Admitted As Inpatient Discharge Instructions Interventions: ED Discharge Assessment Last Done: 03/28/20 18:10 Discharge Problem: S/P total knee arthroplasty Qualifiers: Laterality: right Qualified Code(s): Z96.651 - Presence of right artificial knee joint
[2020-03-28] MEDS: INSULIN ASPART 100 UNITS/ML 3 ML PEN SC SCH (21:00)
[2020-03-28] MEDS: ATORVASTATIN 40 MG TAB PO SCH (21:01)
[2020-03-28] MEDS: RANOLAZINE 500 MG ER TAB PO SCH (21:01)
[2020-03-28] MEDS: ACETAMINOPHEN 500 MG TAB PO SCH (21:02)
[2020-03-28] MEDS: oxyCODONE HCL IR 5 MG TAB (IMMEDIATE RELEASE) PO PRN (22:43)
[2020-03-29 02:22] LABS: Hematocrit (blood only) 21.8 % (42-52); Hemoglobin 7.3 g/dL (14.0-18.0); Mean Corpuscular Hemoglobin 30.8 pg (25-34); Mean Corpuscular Hgb Conc 33.5 g/dL (32-36); Mean Platelet Volume 10.1 fL (7.4-10.4); Nucleated RBC # (auto) 0.02 K/uL (0-0); Nucleated RBC % (auto) 0.4 %; Platelet Count 216 K/uL (130-400); RDW Coefficient of Variation 14.1 % (11.5-14.5); RDW Standard Deviation 46.6 fL (36.4-46.3); Red Blood Count 2.37 M/uL (4.7-6.1)
[2020-03-29 02:31] LABS: INR 1.5 (0.9-1.1); Prothrombin Time 15.5 Seconds (9.0-12.0)
[2020-03-29 02:39] LABS: Albumin Level 2.4 gm/dl (3.4-5.0); BUN Creatinine Ratio 19.4 (10-20); Calcium 7.8 mg/dl (8.5-10.1); Creatinine Clr Calc Pharmacy 119.7 ml/min; Est GFR (African American) 115.1; Est GFR (Non-African American) 99.3; Magnesium 2.3 mg/dl (1.8-2.4)
[2020-03-29 02:42] LABS: Albumin Globulin Ratio 0.7 (0.9-2); Bilirubin,Total 2.2 mg/dl (0.2-1); Globulin 3.4 gm/dl (2.5-4.0); Total Protein 5.8 gm/dl (6.4-8.2)
[2020-03-29] MEDS: ACETAMINOPHEN 500 MG TAB PO SCH ×3 (05:56→21:24)
[2020-03-29 06:03] LABS: Hematocrit (blood only) 23.6 % (42-52); Hemoglobin 7.6 g/dL (14.0-18.0); Mean Corpuscular Hemoglobin 30.3 pg (25-34); Mean Corpuscular Hgb Conc 32.2 g/dL (32-36); Nucleated RBC # (auto) 0.02 K/uL (0-0); Nucleated RBC % (auto) 0.3 %; Platelet Count 250 K/uL (130-400); RDW Coefficient of Variation 14.4 % (11.5-14.5); Red Blood Count 2.51 M/uL (4.7-6.1); White Blood Count 6.91 K/uL (4.8-10.8)
[2020-03-29] MEDS: RANOLAZINE 500 MG ER TAB PO SCH ×2 (08:30→21:25)
[2020-03-29] MEDS: oxyCODONE HCL IR 5 MG TAB (IMMEDIATE RELEASE) PO PRN ×3 (08:36→21:23)
[2020-03-29] MEDS: INSULIN ASPART 100 UNITS/ML 3 ML PEN SC SCH ×4 (08:37→21:57)
[2020-03-29] MEDS ORDERED: ASPIRIN 81 MG ECTAB PO SCH (09:00)
[2020-03-29] MEDS ORDERED: PHYTONADIONE 2.5 MG in SODIUM CHLORIDE 0.9% 50 ML IV ONE (10:00)
[2020-03-29] MEDS: CHOLECALCIFEROL 1,000 UNITS 25 MCG TAB PO SCH (11:24)
[2020-03-29] MEDS: EZETIMIBE 10 MG TABLET PO SCH (11:24)
--- NOTE | 2020-03-29 11:41 | Hospitalist Progress Note ---
Date of Service March 29, 2020 Assessment & Plan (1) S/P total knee arthroplasty: - Admit for acute blood loss anemia, s/p TKA on 03/22/20 -Status post transfusion of 2 U PRBCs Hgb of 6.7 on admission hemoglobin jesus to 7.9 concern for continued bleeding - Ortho consulted - discussed with Dr. Najera - do not remove bandage, hold lovenox and coumadin for now, did administer vitamin K 2.5 - EKG reviewed in NSR, on coumadin for paroxysmal afib -Check hemoglobin this afternoon -Pain control as needed (2) Acute blood loss anemia: Patient is hemodynamically stable will transfer out of ICU (3) Hemorrhage secondary to anti-coagulation: As above Holding Lovenox and Coumadin given INR is 1.5 we will give low-dose vitamin K in the setting that he did have appropriate augmentation of his hemoglobin after transfusion (4) CAD (coronary artery disease): Will hold aspirin at this point time given the difficulty and elevation of his hemoglobin will institute once we know his hemoglobin is stable -Continue atorvastatin 80 mg daily, ranexa He follows with cardiology in [place] (5) Aortic stenosis: - hx of such now status post bioprosthetic AVR, murmur on exam (6) Paroxysmal A-fib: In a normal sinus rhythm here at this time so okay to hold anticoagulation given significant bleeding and acute blood loss anemia ECG with minor ST and T wave changes likely secondary to severe anemia, but patient denies chest pain and troponin is negative - Holding coumadin and bridging Lovenox secondary to acute bleed as above (7) Hyperlipidemia: - Cont statin as above, as well as ezetimibe (8) Diabetes mellitus, type 2: - Holding metformin, ISS with accuchecks ACHS Hemoglobin A1c only 5.1% on preoperative labs 1 month ago (9) Elevated bilirubin: Bilirubin elevated at 1.9 Unclear what baseline is Check LFTs with direct bilirubin in the morning Could be Gilbert's (10) DVT prophylaxis: DVT ppx: teds, scds, no chemical anticoagulation secondary to bleed CODE: Full Dispo: From home, likely to remain in the hospital x 2 days Admission and Anticipated Discharge Date Admission Date: March 28, 2020 Subjective pt states he feels improved does have some right knee pain, did have modest increase in hgb after 2 units prbc Review of Systems Review of Systems: Mild distress and fatigue no headache, blurry or double vision no speech or swallowing issues no chest pain, pressure or palpitations Mild shortness of breath, no cough or wheezes no abdominal pain, nausea or vomiting, diarrhea or constipation no dysuria, hematuria or frequency Joint pain swelling dressing remains in place per instructions from orthopedics no back pain, CVA tenderness or radicular pain no bruising, bleeding or rashes no focal signs of weakness or numbness or altered sensation no complaints of anxiety or depression. Physical Exam Physical Exam: The patient appeared well nourished and normally developed. Vital signs as documented. Head exam is normocephalic atraumatic no scleral icterus Neck is without JVD, thyromegaly, or carotid bruits. Lungs are clear to auscultation, no focal loss of breath sounds Cardiac exam, irregular and rate controlled.stock murmur is heard Abdominal exam reveals normal bowel sounds, soft non tender, no masses Right lower extremity is wrapped in Luis E wrap from thigh to foot with a external fixative the brace in place Neurologic exam is alert and oriented, no focal loss of strength or sensation Skin is without bruises or rashes but cannot visualize the operative site itself Psychologically is without concerns for anxiety or depression. Results & Data Results & Data ([facility]) Vital Signs (Past 12 Hours) Vital Signs Temp Pulse Pulse Resp BP BP Pulse Ox 03/29/20 08:00 98.4 F 75 18 101/48 L 100 03/29/20 04:00 98.1 F 87 18 119/75 97 03/29/20 01:11 98.4 F 72 18 112/51 L 100 03/29/20 00:33 98.1 F 78 14 109/57 L 99 03/29/20 00:00 72 PG Care Time/CCT Total # of Minutes Spent Total Time Spent with Patient: Total time spent is greater than 50% in coordination of care (as documented) at patient's floor/unit and/or counseling patient: Coding Level of Care Code 54511 Subseq Hosp Care Lvl 3 Diagnoses S/P total knee arthroplasty Z96.651 Laterality: right Acute blood loss anemia D62 Hemorrhage secondary to anti-coagulation T45.7X1A; D68.9 CAD (coronary artery disease) I25.10 Aortic stenosis I35.0 Paroxysmal A-fib I48.0 Hyperlipidemia E78.5 Diabetes mellitus, type 2 E11.9 Elevated bilirubin R17 DVT prophylaxis Z29.9 (1) S/P total knee arthroplasty Laterality: right Qualified Code(s): Z96.651 - Presence of right artificial knee joint
[2020-03-29 11:48] LABS: iSTAT Creatinine 0.8 mg/dl (0.6-1.3); iSTAT Hemoglobin 6.5 g/dl (14.0-18.0); iSTAT Ionized Calcium 1.2 mmol/l (1.12-1.32); iSTAT Potassium 3.9 mmol/L (3.3-5.0)
[2020-03-29 12:08] LABS: Hematocrit (blood only) 24.3 % (42-52); Hemoglobin 7.9 g/dL (14.0-18.0); Mean Corpuscular Hemoglobin 30.3 pg (25-34); Mean Corpuscular Hgb Conc 32.5 g/dL (32-36); Mean Corpuscular Volume 93.1 fL (80-100); Mean Platelet Volume 10.1 fL (7.4-10.4); Nucleated RBC # (auto) 0.05 K/uL (0-0); Nucleated RBC % (auto) 0.8 %; Platelet Count 240 K/uL (130-400); RDW Coefficient of Variation 14.4 % (11.5-14.5); RDW Standard Deviation 48.1 fL (36.4-46.3); Red Blood Count 2.61 M/uL (4.7-6.1); White Blood Count 6.85 K/uL (4.8-10.8)
[2020-03-29] MEDS: cephALEXin 500 MG CAP PO SCH ×3 (13:04→21:24)
[2020-03-29 18:15] LABS: Hematocrit (blood only) 21.3 % (42-52); Hemoglobin 6.9 g/dL (14.0-18.0); Mean Corpuscular Hemoglobin 30.4 pg (25-34); Mean Corpuscular Hgb Conc 32.4 g/dL (32-36); Mean Corpuscular Volume 93.8 fL (80-100); Mean Platelet Volume 10.2 fL (7.4-10.4); Platelet Count 246 K/uL (130-400); RDW Coefficient of Variation 14.4 % (11.5-14.5); RDW Standard Deviation 48.1 fL (36.4-46.3); Red Blood Count 2.27 M/uL (4.7-6.1); White Blood Count 6.42 K/uL (4.8-10.8)
[2020-03-29] MEDS ORDERED: SODIUM CHLORIDE 0.9% 250 ML IV PRN (18:19)
[2020-03-29] MEDS ORDERED: ONDANSETRON INJ 2 MG/ML 2 ML VIAL IV PRN (20:51)
[2020-03-29] MEDS: ATORVASTATIN 40 MG TAB PO SCH (21:25)
[2020-03-30] MEDS: ACETAMINOPHEN 500 MG TAB PO SCH ×3 (06:29→22:17)
[2020-03-30 08:21] LABS: Hematocrit (blood only) 23.4 % (42-52); Hemoglobin 7.6 g/dL (14.0-18.0); Mean Corpuscular Hemoglobin 30.2 pg (25-34); Mean Corpuscular Hgb Conc 32.5 g/dL (32-36); Mean Corpuscular Volume 92.9 fL (80-100); Mean Platelet Volume 10.2 fL (7.4-10.4); Nucleated RBC # (auto) 0.02 K/uL (0-0); Nucleated RBC % (auto) 0.3 %; Platelet Count 255 K/uL (130-400); RDW Coefficient of Variation 14.5 % (11.5-14.5); RDW Standard Deviation 48.8 fL (36.4-46.3); Red Blood Count 2.52 M/uL (4.7-6.1); White Blood Count 6.25 K/uL (4.8-10.8)
[2020-03-30 08:32] LABS: INR 1.1 (0.9-1.1); Prothrombin Time 11.6 Seconds (9.0-12.0)
[2020-03-30 08:46] LABS: Albumin Level 2.3 gm/dl (3.4-5.0); BUN Creatinine Ratio 20.7 (10-20); Calcium 8.3 mg/dl (8.5-10.1); Creatinine Clr Calc Pharmacy 124.1 ml/min; Est GFR (African American) 117.1; Magnesium 2.3 mg/dl (1.8-2.4); Potassium 4.2 mmol/L (3.5-5.1)
[2020-03-30 08:49] LABS: Albumin Globulin Ratio 0.7 (0.9-2); Bilirubin,Total 1.8 mg/dl (0.2-1); Globulin 3.4 gm/dl (2.5-4.0); Total Protein 5.7 gm/dl (6.4-8.2)
[2020-03-30] MEDS: cephALEXin 500 MG CAP PO SCH ×4 (08:50→21:20)
[2020-03-30] MEDS: CHOLECALCIFEROL 1,000 UNITS 25 MCG TAB PO SCH (08:50)
[2020-03-30] MEDS: RANOLAZINE 500 MG ER TAB PO SCH ×2 (08:50→21:20)
[2020-03-30] MEDS: EZETIMIBE 10 MG TABLET PO SCH (08:50)
[2020-03-30] MEDS: INSULIN ASPART 100 UNITS/ML 3 ML PEN SC SCH ×4 (09:12→22:28)
--- NOTE | 2020-03-30 11:48 | Orthopedic Progress Note ---
Date of Service March 30, 2020 Assessment & Plan (1) S/P total knee arthroplasty: Patient's dressing was changed today. Wound healing well, mild oozing distally of incision however no gross bleeding noted. Continue with dressing changes, WBAT with knee immobilizer. Patient's hemoglobin today at 7.9 after receiving a 3rd unit of blood yesterday, transfuse per primary team. (2) Hemorrhage secondary to anti-coagulation: Admission and Anticipated Discharge Date Admission Date: March 28, 2020 Subjective Patient feeling well this morning. No current complaints. Pain well controlled. Has received a total of 3 unites of blood. Denies chest pain, sob, n/v/d, fever or chills. Review of Systems Review of Systems: All systems reviewed & are unremarkable except as noted in HPI & below Physical Exam Constitutional: well developed and well nourished; no acute distress Musculoskeletal: Dressing removed. Mild to moderate amount of dried bloody d rainage on gauze. Incision well approximated, clean. Minimal blood drainage distally. Fracture blistering noted superiorly and medially, open ruptured blister inferomedial aspect of incision. Mild to moderate ecchymosis, no erythema. No calf tenderness. n/v status and sensation intact. Results & Data ([facility]) Vital Signs (Past 12 Hours) Vital Signs Temp Pulse Resp BP Pulse Ox 03/30/20 07:51 37.0 C 70 18 118/69 98 (1) S/P total knee arthroplasty Laterality: right Qualified Code(s): Z96.651 - Presence of right artificial knee joint
--- NOTE | 2020-03-30 14:30 | Hospitalist Progress Note ---
Date of Service March 30, 2020 Assessment & Plan (1) S/P total knee arthroplasty: - Admit for acute blood loss anemia, s/p TKA on 03/22/20 -Status post transfusion of 2 U PRBCs Hgb of 6.7 on admission hemoglobin jesus to 7.9 concern for continued bleeding - Ortho consulted - discussed with Dr. Najera - megal leg 03/30 no significant changes - EKG reviewed in NSR, on coumadin for paroxysmal afib - -Pain control as needed (2) Acute blood loss anemia: Patient is hemodynamically stable, not a significant hemarthosis per ortho, no krys rectal bleeding, maybe retroperitioneal bleed? will check Ct to eval as will impact restarting AC (3) Hemorrhage secondary to anti-coagulation: As above Holding Lovenox and Coumadin did once again fall will have no bridging in the future continue to hold (4) CAD (coronary artery disease): continue to hold aspirin at this point time given the difficulty and elevation of his hemoglobin will institute once we know his hemoglobin is stable -Continue atorvastatin 80 mg daily, ranexa He follows with cardiology in [place] (5) Aortic stenosis: - hx of such now status post bioprosthetic AVR, murmur on exam (6) Paroxysmal A-fib: In a normal sinus rhythm here at this time so okay to hold anticoagulation given significant bleeding and acute blood loss anemia ECG with minor ST and T wave changes likely secondary to severe anemia, but patient denies chest pain and troponin is negative - Holding coumadin and bridging Lovenox secondary to acute bleed as above (7) Hyperlipidemia: - Cont statin as above, as well as ezetimibe (8) Diabetes mellitus, type 2: - Holding metformin, ISS with accuchecks ACHS Hemoglobin A1c only 5.1% on preoperative labs 1 month ago (9) Elevated bilirubin: Bilirubin elevated at 1.9 Unclear what baseline is Check LFTs with direct bilirubin in the morning Could be Gilbert's (10) DVT prophylaxis: DVT ppx: teds, scds, no chemical anticoagulation secondary to bleed CODE: Full Dispo: From home, likely to remain in the hospital x 2 days Admission and Anticipated Discharge Date Admission Date: March 28, 2020 Subjective Patient. Has received a total of 3 units of blood. Denies chest pain, sob, n/v /d, fever or chills. denies melena or dyspepsia ,reportedly his wound is not with significant hemarthorosis which questions gib or retroperitoneal bleed, both will be supportive care in any case as is stable no evidence of acute gib Review of Systems Review of Systems: Mild distress and fatigue no headache, blurry or double vision no speech or swallowing issues no chest pain, pressure or palpitations Mild shortness of breath, no cough or wheezes no abdominal pain, nausea or vomiting, diarrhea or constipation no dysuria, hematuria or frequency Joint pain swelling dressing remains in place per instructions from orthopedics no back pain, CVA tenderness or radicular pain no bruising, bleeding or rashes no focal signs of weakness or numbness or altered sensation no complaints of anxiety or depression. Physical Exam Physical Exam: The patient appeared well nourished and normally developed. Vital signs as documented. Head exam is normocephalic atraumatic no scleral icterus Neck is without JVD, thyromegaly, or carotid bruits. Lungs are clear to auscultation, no focal loss of breath sounds Cardiac exam, irregular and rate controlled.stock murmur is heard Abdominal exam reveals normal bowel sounds, soft non tender, no masses Right lower extremity is wrapped in Luis E wrap from thigh to foot with a external fixative the brace in place Neurologic exam is alert and oriented, no focal loss of strength or sensation Skin is without bruises or rashes but cannot visualize the operative site itself Psychologically is without concerns for anxiety or depression. Results & Data Results & Data ([facility]) Vital Signs (Past 12 Hours) Vital Signs Temp Pulse Resp BP Pulse Ox 03/30/20 13:42 98 03/30/20 07:51 98.6 F 70 18 118/69 98 PG Care Time/CCT Total # of Minutes Spent Total Time Spent with Patient: Total time spent is greater than 50% in coordination of care (as documented) at patient's floor/unit and/or counseling patient: Coding Level of Care Code 62280 Subseq Hosp Care Lvl 2 Diagnoses S/P total knee arthroplasty Z96.651 Laterality: right Acute blood loss anemia D62 Hemorrhage secondary to anti-coagulation T45.7X1A; D68.9 CAD (coronary artery disease) I25.10 Aortic stenosis I35.0 Paroxysmal A-fib I48.0 Hyperlipidemia E78.5 Diabetes mellitus, type 2 E11.9 Elevated bilirubin R17 DVT prophylaxis Z29.9 (1) S/P total knee arthroplasty Laterality: right Qualified Code(s): Z96.651 - Presence of right artificial knee joint
--- NOTE | 2020-03-30 15:48 | CT Scan Report ---
ABDOMEN AND PELVIS CT WITHOUT CONTRAST CT DOSE: 1035.98 mGycm HISTORY: Acute generalized abdominal pain eval for retroperitoneal bleed TECHNIQUE: Multiaxial CT images of the abdomen and pelvis were performed without contrast. A dose lo wering technique was utilized adhering to the principles of ALARA. COMPARISON STUDY: None FINDINGS: Cardiomegaly. Prior median sternotomy with coronary artery calcifications. Decreased attenuation of t he cardiac blood pool suggests anemia. Lung bases are generally clear. There is no pneumatosis or pne umoperitoneum. The unenhanced spleen, pancreas, adrenal glands, contracted gallbladder and liver appe ar unremarkable. Mild nonspecific bilateral perinephric stranding. No obstructive uropathy. Mild urin guero bladder wall thickening with partial distention. Mild prostamegaly. Calcified plaque of the abdom inal aorta without aneurysm. Nonspecific mildly enlarged distal periesophageal lymph node measures 10 mm on image 26 series 3. Mild nonspecific distal esophageal wall thickening. Mild colonic diverticulosis without acute diverti culitis. Normal appendix. Partially imaged enlargement with heterogeneity and increased attenuation o f the right proximal quadriceps musculature, image 466 series 3 with mild subcutaneous edema/hemorrha ge noted laterally. No acute fracture or dislocation. Laminectomy with posterior interbody magui and sc rew fusion at L3-S1 with discectomy changes at L3-L4 and L4-L5. IMPRESSION: 1. Partially imaged enlargement with heterogeneity and increased attenuation of the proximal quadrice ps musculature is suspicious for acute intramuscular hematoma with subcutaneous hematoma noted within the lateral thigh. 2. No bowel obstruction or bowel wall thickening. Normal appendix. 3. Colonic diverticulosis. 4. Nonspecific mild periesophageal adenopathy. 5. Additional findings as above. ACT 112: Negative or not required by law. The above report was generated using voice recognition software. It may contain grammatical, syntax o r spelling errors. Electronically signed by: Anjel Bryan M.D. 03/30/2020 3:47 PM
[2020-03-30] MEDS: oxyCODONE HCL IR 5 MG TAB (IMMEDIATE RELEASE) PO PRN (21:19)
[2020-03-30] MEDS: ATORVASTATIN 40 MG TAB PO SCH (21:20)
[2020-03-31] MEDS: ACETAMINOPHEN 500 MG TAB PO SCH ×2 (05:42→13:37)
[2020-03-31 06:58] LABS: Hematocrit (blood only) 23.8 % (42-52); Hemoglobin 7.7 g/dL (14.0-18.0); Mean Corpuscular Hemoglobin 30.2 pg (25-34); Mean Corpuscular Hgb Conc 32.4 g/dL (32-36); Mean Corpuscular Volume 93.3 fL (80-100); Mean Platelet Volume 9.8 fL (7.4-10.4); Platelet Count 265 K/uL (130-400); RDW Coefficient of Variation 14.7 % (11.5-14.5); RDW Standard Deviation 49.4 fL (36.4-46.3); Red Blood Count 2.55 M/uL (4.7-6.1); White Blood Count 6.78 K/uL (4.8-10.8)
[2020-03-31 07:05] LABS: INR 1.1 (0.9-1.1); Prothrombin Time 11.6 Seconds (9.0-12.0)
[2020-03-31] MEDS: oxyCODONE HCL IR 5 MG TAB (IMMEDIATE RELEASE) PO PRN ×2 (07:35→13:38)
[2020-03-31] MEDS: cephALEXin 500 MG CAP PO SCH ×2 (07:36→13:37)
[2020-03-31] MEDS: CHOLECALCIFEROL 1,000 UNITS 25 MCG TAB PO SCH (07:36)
[2020-03-31] MEDS: RANOLAZINE 500 MG ER TAB PO SCH (07:36)
[2020-03-31] MEDS: EZETIMIBE 10 MG TABLET PO SCH (07:37)
[2020-03-31] MEDS: INSULIN ASPART 100 UNITS/ML 3 ML PEN SC SCH ×2 (07:39→12:29)
[2020-03-31 10:02] LABS: Iron 37 mcg/dl (35-175); Total Iron Binding Capacity 215 mcg/dl (250-450)
--- NOTE | 2020-03-31 16:33 | Discharge Summary ---
Date of Service March 31, 2020 Admission HPI Per Admitting Provider This is a 64 yo M with PMHx of Aortic Stenosis requiring bioprosthesis AVR (2018), CAD, HTN, HLD, Afib on Coumadin, Hiatal Hernia, Obesity, L2-S1 spinal decompression and L3-S1 fusion in August 29, and OA of right knee requiring TKA. Patient is 6 days post right knee arthroplasty completed on 02/20/[address] Najera now with hemoglobin of 6.7, on Coumadin (AFIB) and Lovenox (Bridge); pts Hgb was 11.1 on day of discharge postoperatively last week. Patient comes to the EMD today for complaints of dizziness, weakness and fatigue when getting up and ambulating. He denies chest pain or shortness of breath. Pt went to [facility] yesterday as he felt lightheaded and dizzy, and was sent home from their ER with referral to his orthopedic surgeon. He reports having the drain in place until yesterday. After the removal of the drain, bandages continued to become saturated with blood and required frequent changes. Dr. Najera has recommended that the bandage over the wound not be removed, and that he is transfused. Principal Diagnosis acute blood loss anemia recent total knee replacement Discharge Exam The patient appeared well Vital signs as documented. Lungs are clear to auscultation and appear unlabored Cardiac exam, regular and rate controlled.. No murmurs, rubs or gallops. Abdominal exam reveals normal bowel sounds, soft non tender, no masses Extremitie on the right is wrapped with an Luis E wrap there is some minor tenderness is of the expected postoperatively good distal pulses Neurologic exam is alert and oriented, no focal loss of strength or sensation Skin is without bruises or rashes Psychologically is without concerns for anxiety or depression. Discharge Data Allergies Allergy/AdvReac Type Severity Reaction Status Date / Time No Known Allergies Allergy Verified 03/22/20 05:43 Consultations 03/28/20 16:42 ED Decision to Admit Stat 03/28/20 17:35 Consult Orthopedic Surgery Routine Ordered Studies 03/30/20 14:31 CT abd pelvis wo con Routine Hospital Course (1) S/P total knee arthroplasty: - Admit for acute blood loss anemia, s/p TKA on 03/22/20 -Status post transfusion of 3 U PRBCs Hgb of 6.7 on admission hemoglobin jesus to 7.7 - EKG reviewed in NSR, on coumadin for paroxysmal afib -CT scan abdomen pelvis did not show any retroperitoneal bleeding but did show bleeding into the patient's thigh -Pain control as needed (2) Acute blood loss anemia: Patient remained hemodynamically stable, not a significant hemarthosis per ortho, no krys rectal bleeding, CT scan suggest bleeding into the thigh muscle itself. Patient recommended multiple vitamin with iron (3) Hemorrhage secondary to anti-coagulation: As above Resume Coumadin without bridging have INR checked in on Friday 12/01 (4) CAD (coronary artery disease): continue to hold aspirin at this point time given the difficulty and elevation of his hemoglobin will institute once we know his hemoglobin is stable -Continue atorvastatin 80 mg daily, ranexa He follows with cardiology in [place] (5) Aortic stenosis: - hx of such now status post bioprosthetic AVR, murmur on exam (6) Paroxysmal A-fib: In a normal sinus rhythm here at this time ECG with minor ST and T wave changes likely secondary to severe anemia, but patient denies chest pain and troponin is negative - (7) Hyperlipidemia: - Cont statin as above, as well as ezetimibe (8) Diabetes mellitus, type 2: -Resume metformin, Hemoglobin A1c only 5.1% on preoperative labs 1 month ago (9) Elevated bilirubin: Does not appear to be from hemolysis Could be Gilbert's Total Time Total Time Spent Total Time Spent (In Minutes): It required greater than 30 minutes to prepare this patient for discharge Discharge Plan Discharge Items Patient Disposition: Home - Self-Care Reason For Visit: ANEMIC Discharge Diagnosis: acute blood loss anemia thigh hematoma Activity: Per Instructions section Weightbearing: Right weightbearing Weightbearing Comment: as tolerated with walker Non-emergency contact: Surgeon Call non-emergency contact if: your pain is not controlled, your temperature is above 101.5, your wound has increased redness and your wound has increased drainage Follow-up/Referrals: Tori Spangler M.D. [Primary Care Provider] - 04/05/20 12:00 pm Diet: Regular Addtl Attending Provider Instructions: please have good rest, good nutrition and good hydration, please take a multiple vitamin with iron daily for at least 6 weeks please restart your Coumadin in the evening and have a PT INR blood check at your usual area on tuesday 04/03 and please have your primary care provider who usually manages you Coumadin instruct you on your next blood check. please continue physical therapy Addtl Cuff Setter Provider Instructions: Daily dressing changes for the first week. Use sterile gauze and luis e wrap to keep in place. Can change dressing every other day thereafter until seen in the office. Resume your Physical Therapy on Friday08/02/19. Gentle range of motion only. You can be weightbearing as tolerated without your brace as discussed with Dr. Najera. Increase your activity as tolerated. Follow up with Dr. Najera on your already sheduled return appointment. Pending Studies at Discharge: Yes Studies:: urine test, will call if abnormal Stand-Alone Forms: My [facility], Smoking Cessation Medications and DC Order Prescriptions: New cefadroxil 500 mg capsule 500 mg PO BID Qty: 28 RF: 1 Continued aspirin 81 mg Tablet,Delayed Release (Dr/Ec) 81 mg PO QAM RF: 0 oxycodone 5 mg Tablet 5 mg PO Q4H PRN (Reason: pain) Qty: 30 RF: 0 acetaminophen 500 mg tablet 1,000 mg PO Q8 PRN (Reason: Pain) RF: 0 warfarin 2 mg Tablet 2 - 4 mg PO .HOLD RF: 0 cholecalciferol (vitamin D3) [Vitamin D3] 50 mcg (2,000 unit) Capsule 2,000 unit PO QAM RF: 0 metformin 500 mg Tablet 500 mg PO QPM RF: 0 atorvastatin 80 mg Tablet 80 mg PO PM RF: 0 ezetimibe [Zetia] 10 mg Tablet 10 mg PO QAM RF: 0 ranolazine [Ranexa] 1,000 mg Tablet Extended Release 12 Hr 1,000 mg PO BID RF: 0 Discharge Orders: Discharge Order (Routine); Ordered 03/31/20 Ordered By: Sam Alfredo Admission Data Admit Date/Time: 03/28/20 17:35 Attending Provider: Sam Alfredo Admit Provider: Libby Rogers Primary Care Provider: Tori Spangler Other Providers: Libby Rogers ; Jeremy Najera Other Interventions: Discharge Summary Assessment (RN) Last Done: 03/31/20 13:22 Coding Level of Care Code D/C Day Management >30 mins Diagnoses S/P total knee arthroplasty Z96.651 Laterality: right Acute blood loss anemia D62 Hemorrhage secondary to anti-coagulation T45.7X1A; D68.9 CAD (coronary artery disease) I25.10 Aortic stenosis I35.0 Paroxysmal A-fib I48.0 Hyperlipidemia E78.5 Diabetes mellitus, type 2 E11.9 Elevated bilirubin R17
== END 2020-03-31 15:15 | disposition home or self-care (01) | DRG 813 ==
LOC: ED 13:54 → SUATTDRO 17:35 → 1E 17:35 → 3N 03-29 12:01

== ENCOUNTER 2022-09-04 09:54 | Observation (INO) ==
--- NOTE | 2022-08-02 10:36 | PAT Medication Instructions ---
Medication Instructions Date of Service August 02, 2022 Home Medications atorvastatin 80 mg tablet 80 mg PO PM ezetimibe 10 mg tablet (Zetia) 10 mg PO QAM metformin 500 mg tablet 500 mg PO QPM ranolazine 1,000 mg tablet,extended release,12 hr (Ranexa) 1,000 mg PO BID warfarin 2 mg tablet 3 - 4 mg PO .HOLD acetaminophen 500 mg tablet 1,000 mg PO Q8 PRN Pain pantoprazole 40 mg tablet,delayed release (Protonix) 40 mg PO QAM ASK your prescriber and surgeon warfarin 2 mg tablet 3 - 4 mg PO .HOLD STOP taking 48 hours before surgery metformin 500 mg tablet 500 mg PO QPM Take morning of surgery With a small sip of water, OTHERWISE NOTHING TO EAT OR DRINK AFTER MIDNIGHT: ezetimibe 10 mg tablet (Zetia) 10 mg PO QAM ranolazine 1,000 mg tablet,extended release,12 hr (Ranexa) 1,000 mg PO BID acetaminophen 500 mg tablet 1,000 mg PO Q8 PRN Pain (if needed) pantoprazole 40 mg tablet,delayed release (Protonix) 40 mg PO QAM Take evening before surgery atorvastatin 80 mg tablet 80 mg PO PM metformin 500 mg tablet 500 mg PO QPM ranolazine 1,000 mg tablet,extended release,12 hr (Ranexa) 1,000 mg PO BID acetaminophen 500 mg tablet 1,000 mg PO Q8 PRN Pain (if needed) Other Notes If you have any questions please call us at [phone] or [phone] or [phone] or [phone]
--- NOTE | 2022-08-09 11:21 | Anesthesiology Consultation ---
Date of Service August 09, 2022 Assessment & Plan (1) Encounter for pre-operative examination: - Check BSG, coags AM DOS (warfarin instructions per surgeon/prescriber). - COVID screening: Per assessment on 08/09: No known COVID-19 positive contacts or current COVID-19 related symptoms. Travel screen negative. Patient vaccinated. At surgeon discretion if preop Covid testing being done. - Hx glidescope intubation Decompression/fusion L4-S1 08/23/19 = Glidescope #4, ETT 7.5, atraumatic x 1 attempt. Right TKA (03/22/20): LMA #5 + PNB at [facility] - Cardiology visit (07/10/22): Aware of upcoming knee surgery. "Aortic stenosis.. Echo from 07/01/22.. MG now 24, previously MG was 36 on echo from 1 year ago. Findings consistent with mild aortic stenosis.. History of prosthetic aortic valve.. Coronary artery disease.. Denies angina.. Medication management appropriate.. Paroxysmal A-fibanticoagulated on warfarin.. Denies palpitations" > F/U 12-14 months recommended. Chart Review Chart Review: Acceptable Risk for Surgery (pending evaluation AM DOS) and Patient seen in Pre Admission Testing Teaching & Discussion Pre-Anesthesia Teaching/Discussion Notes: Instructed NPO after midnight before surgery,except medications with 15 cc of water. Medication instructions provided according to the PAT guidelines. History Surgery Operation Date: 09/04/22 09:10 Proposed Procedures p Right Quadriceps Tendon Repair, Excision Parellar Bone Fragments - Jeremy Najera MD Height/Weight Height: 5 ft 9 in Weight: 108.5 kg Allergies Allergy/AdvReac Type Severity Reaction Status Date / Time No Known Allergies Allergy Verified 08/02/22 07:32 Medications Home Medications Medication Instructions Recorded Confirmed Last Taken atorvastatin 80 mg tablet 80 mg PO PM 07/08/19 08/02/22 03/21/20 19:00 ezetimibe 10 mg tablet (Zetia) 10 mg PO QAM 07/08/19 08/02/22 03/28/20 07:00 metformin 500 mg tablet 500 mg PO QPM 07/08/19 08/02/22 03/21/20 19:00 ranolazine 1,000 mg 1,000 mg PO BID 07/08/19 08/02/22 03/28/20 07:00 tablet,extended release,12 hr (Ranexa) warfarin 2 mg tablet 3 - 4 mg PO .HOLD 07/08/19 08/02/22 03/16/20 2 mg acetaminophen 500 mg tablet 1,000 mg PO Q8 PRN Pain 03/28/20 08/02/22 Unknown pantoprazole 40 mg tablet,delayed 40 mg PO QAM 08/02/22 08/02/22 Unknown release (Protonix) Past Medical History Medical History Aortic stenosis S/P bioprosthetic AV (2017) Mild aortic stenosis (MG 24.0 mmhg, PAKO 1.15cm2) per 06/2022 echo CAD (coronary artery disease) total stents x5 (most recent stent 2011, most recent cath 2017 prior to AVR- no stents) Follows with Dr. Devlin/Larry Hiatal hernia History of bleeding peptic ulcer Bleeding ulcer several months ago, repeat EGD done 07/2022 ("healed") Hyperlipidemia Hypertension Paroxysmal A-fib Prediabetes Taking Metformin Exercise / Class Metabolic Activity II 4-5 Yardwork/Stairs/Walk up hill Past Family History Family History Sister Family history of reaction to anesthesia PONV Mother Family history of diabetes mellitus Father Family history of diabetes mellitus Past Surgical History Surgical History Fusion of spine Decompression/fusion L4-S1 08/23/19 = Glidescope #4, ETT 7.5, atraumatic x 1 attempt. History of arthroscopy Right knee History of cardiac cath total stents x5 (most recent stent 2011, most recent cath 2017 prior to AVR- no stents) History of colonoscopy History of esophagogastroduodenoscopy (EGD) Repeat done 07/2022 to check bleeding ulcer History of heart valve replacement AVR (2018) History of myringotomy History of total shoulder replacement Right Hx of tonsillectomy S/P total knee arthroplasty Right TKA (03/22/20): LMA #5 + PNB at [facility] Status post lumbar surgery [place] teeth removed Past Anesthesia History Difficult Airway (Hx glidescope intubation) and No Family Hx of Anesthesia Complications (except sister with PONV) History of PONV No Hx of PONV and No Hx of Motion Sickness Social History Smoking Status: Never smoker Do You Dip or Chew Tobacco: No Hx Alcohol Use: Yes Alcohol type: beer alcohol intake frequency: a few times a week Hx Substance Use: No substance use type: does not use Review of Systems Patient denies chest pain, shortness of breath, dyspnea on exertion, fever, chills, cough, wheezing, palpitations. Physical Exam Vital Signs VITALS BP 152/73 P 53 (asymptomatic) TEMP 97.9 SP02 99%RA RESP 18 PHYSICAL Full cervical extension range of motion. Full TMJ range of motion. TMD 3.5 finger breaths Mallampati Score 3 Lungs: clear throughout to auscultation Cardiac: regular rate and rhythm, III/ systolic murmur with faint carotid radiation Spine: normal Extremities: no edema Lab Results Anesthesia Preop Results Results Anesthesia Widget: WBC 5.10 K/ul (4.8-10.8) 08/09/22 Hgb 13.3 g/dl (14.0-18.0) L 08/09/22 Hct 40.3 % (42.0-52.0) L 08/09/22 Plt 159 K/uL (130-400) 08/09/22 Na 136 mmol/L (136-145) 08/09/22 K 4.4 mmol/L (3.5-5.1) 08/09/22 Cl 106 mmol/L (98-107) 08/09/22 CO2 27 mmol/L (21-32) 08/09/22 BUN 16 mg/dl (6-23) 08/09/22 Creat 0.95 mg/dl (0.6-1.4) 08/09/22 Glucose Level 91 mg/dl (70-99(Fasting)) 08/09/22 Testing Electrocardiogram Date: 08/09/22 Findings: + NSR @ (61) Chest X-Ray Date: 04/18/22 No acute cardiopulmonary abnormality. Echocardiogram Date: 07/01/22 EF 50-55%. No RWMA. Bioprosthetic aortic valve. Mild aortic stenosis. Mild LAD. Mild MR. Other Testing Stress Test Date: 06/05/17 Exercise stress EKG is POSITIVE for ischemia at a workload of more than 7 METs. *see cath below Cardiac Catheterization Date: 06/29/17 Left main: No angiographically significant disease LAD: Small caliber calcified vessel, luminal irregularities in the proximal and mid segment of the vessel, but no angiographically significant disease. Left circumflex: Small to moderate caliber vessel with mild luminal irregularities and no significant disease. RCA: This is a moderate to large caliber vessel There are stent in the midsegment of the vessel. There is mid segment in-stent 40% restenosis. To PDA which is a small vessel, has a mid segment 70% lesion. Severe aortic stenosis with a mean gradient of more than 40 mmHg dimensionless index of 0.2 and calculated PAKO 0.6. Plan: Referral to CT surgery for aortic valve replacement. COVID-19 Risk Screen Screening Information COVID-19 Screen Date: 08/09/22 Exposure 21 Days Family/Household +COVID Last 21 Days: No Exposure 10 Days Any COVID Exposure Last 10 Days: No Symptoms Last 10 Days Experienced COVID Sx Last 10 Days: No + COVID 0-90 Days COVID + in Last 0-90 Days: No
--- NOTE | 2022-09-03 19:55 | History & Physical Report ---
Date of Service September 03, 2022 Assessment & Plan (1) Quadriceps tendon rupture: Plan: Patient has tearing of his quad tendon as well as fragmentation of his patella, possible AVN. He has ongoing pain and dysfunction. He would like to proceed with surgical intervention. Risks, benefits and alternatives to surgery including but not limited to infection, DVT, pain, stiffness, need for revision surgery, damage to blood vessels, damage to nerves, PE, , were discussed with the patient and they wish to proceed. Plan for right knee quad tendon repair, medial retinacular repair, possible VMO advancement, excision bone fragments. Surgery scheduled at [facility] for 09/04/22. All questions answered. F/u post op. Encounter type: subsequent encounter Laterality: right Qualified Code(s): S76.111D - Strain of right quadriceps muscle, fascia and tendon, subsequent encounter History of Present Illness Chief Complaint: Right knee pain Primary Care Provider: KAT Chamorro 66yo male with PMHx significant for aortic stenosis s/p AVR, CAD, HTN who presents with ongoing right knee pain. He had previous total knee and initially did well. Several months ago started to have increasing right knee pain after stumbling. X-rays and MRI demonstrate fragmentation of his patella with quad tendon tear. He would like to proceed with surgical intervention. Patient denies headaches, sweats, fevers, chills, double vision, blurred vision, cough, sore throat, dysphagia, chest pain, sob, wheezing, n/v/d/c, numbness, tingling, fatigue, urinary symptoms, mood disorders. ROS positive for right knee pain and stiffness. Allergies Allergy/AdvReac Type Severity Reaction Status Date / Time No Known Allergies Allergy Verified 08/02/22 07:32 Home Medications Medication Instructions Recorded Confirmed Type atorvastatin 80 mg tablet 80 mg PO PM 07/08/19 08/02/22 History ezetimibe 10 mg tablet (Zetia) 10 mg PO QAM 07/08/19 08/02/22 History metformin 500 mg tablet 500 mg PO QPM 07/08/19 08/02/22 History ranolazine 1,000 mg 1,000 mg PO BID 07/08/19 08/02/22 History tablet,extended release,12 hr (Ranexa) warfarin 2 mg tablet 3 - 4 mg PO .HOLD 07/08/19 08/02/22 History acetaminophen 500 mg tablet 1,000 mg PO Q8 PRN Pain 03/28/20 08/02/22 History pantoprazole 40 mg tablet,delayed 40 mg PO QAM 08/02/22 08/02/22 History release (Protonix) Past Med/Surg History Medical History Aortic stenosis S/P bioprosthetic AV (2018) Mild aortic stenosis (MG 24.0 mmhg, PAKO 1.15cm2) per 06/2022 echo CAD (coronary artery disease) total stents x5 (most recent stent 2011, most recent cath 2018 prior to AVR- no stents) Follows with Dr. Devlin/Larry Hiatal hernia History of bleeding peptic ulcer Bleeding ulcer several months ago, repeat EGD done 07/2022 ("healed") Hyperlipidemia Hypertension Paroxysmal A-fib Prediabetes Taking Metformin Surgical History Fusion of spine Decompression/fusion L4-S1 08/23/19 = Glidescope #4, ETT 7.5, atraumatic x 1 attempt. History of arthroscopy Right knee History of cardiac cath total stents x5 (most recent stent 2011, most recent cath 2018 prior to AVR- no stents) History of colonoscopy History of esophagogastroduodenoscopy (EGD) Repeat done 07/2022 to check bleeding ulcer History of heart valve replacement AVR (2018) History of myringotomy History of total shoulder replacement Right Hx of tonsillectomy S/P total knee arthroplasty Right TKA (03/22/20): LMA #5 + PNB at [facility] Status post lumbar surgery [place] teeth removed Family History Sister Family history of reaction to anesthesia PONV Mother Family history of diabetes mellitus Father Family history of diabetes mellitus Social History Smoking Status: Never smoker Second Hand Exposure: No; Do You Dip or Chew Tobacco: No; Tobacco Cessation Education Requested by Patient: No Hx Alcohol Use: Yes Alcohol type: beer Hx Substance Use: No Preferred Language: Upper Sorbian Communication Ability: Effective Appellate Conferee Required: No Beliefs That Will Affect Care: None marital status: Current Living Situation: Spouse Other Information That Helps Us Care for You: No Feels Safe at Home: Yes Safety Concerns: Feels Safe At This Time Assistive Devices: Cane and Glasses Assistive Devices Comment: uses occasionally Review of Systems All systems reviewed & are unremarkable except as noted in HPI & below Physical Exam Constitutional: well developed and well nourished; no acute distress Eyes: PERRL, conjunctivae normal, anicteric sclerae ENMT: external ear and nose normal, oropharynx normal Neck: trachea midline, no thyromegaly Respiratory: normal respiratory effort, lungs clear to auscultation Cardiovascular: RRR, no murmur, no edema Musculoskeletal: Right knee: Tenderness quad tendon with palpalbe defect. + Extensor lag. ROM 0- 110 degrees. Stable to valgus and varus stress. Negative posterior drawer. Skin: no rashes, warm and dry Neurologic: patellar DTR's 2+ bilat, sensation intact Psychiatric: A+Ox3, euthymic affect Results & Data Diagnostic Findings Right knee radiographs demonstrate fragmentation of his patella. MRI demonstrates quadd tendon tear. Patellar component appearns stable.
[~2022-09-04 09:54] MED LIST changes: -ACETAMINOPHEN 500 MG TAB PO SCH; +BUPIVACAINE 0.5 % 5 MG/1 ML PF 10ML VIAL ONE; -CEFAZOLIN 2000MG 2,000 MG/15 ML SYR IV SCH; -CeleBREX 200 MG CAP PO SCH; -GABAPENTIN 600 MG DOSE PO SCH; +LACTATED RINGER'S 1,000 ML IV SCH; -LR 15ML/HR IV SCH; +MIDAZOLAM HCL 1 MG/ML 2ML VIAL ONE; +ONDANSETRON INJ 2 MG/ML 2 ML VIAL ONE; +PROPOFOL IV EMULSION 10 MG/ML 20 ML VIAL IV ONE; +ROPIVACAINE 0.5% 5 MG/ML 30 ML VIAL ONE; -SODIUM CHLORIDE 0.9% 250 ML IV PRN; +ceFAZolin 2000MG 2,000 MG/15 ML SYR IV SCH; +fentaNYL citrate PF 100 MCG/2 ML VIAL ONE
[2022-09-04] MEDS ORDERED: ePHEDrine sulfate 50 MG/ML AMP IV PRN (10:29)
[2022-09-04] MEDS ORDERED: ATROPINE SULFATE 0.1 MG/ML 10ML SYR IV PRN (10:29)
[2022-09-04] MEDS ORDERED: METOCLOPRAMIDE HCL INJ 5 MG/ML 2 ML VIAL IV PRN ×2 (10:29→15:48)
[2022-09-04] MEDS ORDERED: ONDANSETRON INJ 2 MG/ML 2 ML VIAL IV PRN ×2 (10:29→15:48)
[2022-09-04] MEDS ORDERED: HYDROmorphone INJ 1 MG/ML SYRINGE IV PRN (10:29)
[2022-09-04 11:01] LABS: INR 1.1 (0.9-1.1); Partial Thromboplastin Ratio 1.1; Partial Thromboplastin Time 30.7 Seconds (21.0-31.0); Prothrombin Time 11.7 Seconds (9.0-12.0)
[2022-09-04] MEDS ORDERED: BUPIVACAINE 0.25% PF 30 ML VIAL ONE (11:25)
--- NOTE | 2022-09-04 11:45 | History & Physical Bridge Note ---
Date of Service September 04, 2022 History & Physical Bridge Note I have examined the patient, reviewed the History & Physical and in the interval since the performance of the History & Physical I have noted the following changes of clinical significance: no changes noted
[2022-09-04] MEDS ORDERED: PHENYLEPHRINE HCL 10 MG/ML VIAL ONE (12:56)
[2022-09-04] MEDS ORDERED: LIDOCAINE 2% MPF LOCAL 5 ML VIAL ONE (12:56)
[2022-09-04] MEDS ORDERED: fentaNYL citrate PF 100 MCG/2 ML VIAL ONE (14:06)
--- NOTE | 2022-09-04 14:25 | Post Operative Brief Note ---
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 Post-Op Diagnosis: Right quadriceps tendon tear, fragmentation of patella, possible avascular process patella I identified the patient and participated in the time-out.: Yes Procedure Operation Date: 09/04/22 12:20 Actual Procedures p Right Quadriceps Tendon Repair, VMO advancement with imbrication, excision Patellar Bone Fragments(Right) - Jeremy Najera MD Surgeon Jeremy Najera MD Mental Health Therapist Sarmad AVELAR Estimated Blood Loss 20 Findings Consistent with Post-Op Diagnosis Specimens Patella bone fragments Anesthesia Type General Regional Complications none Disposition Accompanied Patient To Recovery: No Disposition: Recovery Room Overlapping Procedure I was present for: the critical portions of procedure.
[2022-09-04] MEDS: fentaNYL citrate PF 100 MCG/2 ML VIAL IV PRN ×2 (14:52→14:57)
--- NOTE | 2022-09-04 15:08 | Anesthesiology Progress Note ---
Date of Service September 04, 2022 Anesthesia Post Procedure Vital Signs Vital Signs: Temp Pulse Pulse Resp BP BP Pulse Ox 09/04/22 15:00 63 12 153/89 H 93 09/04/22 14:50 63 13 162/93 H 98 09/04/22 14:40 65 14 161/87 H 100 09/04/22 14:30 64 15 144/86 H 100 09/04/22 14:22 36.5 C 66 14 132/83 100 09/04/22 10:08 09/04/22 10:08 36.4 C L 65 20 190/103 H 100 O2 Del Method O2 Flow Rate 09/04/22 15:00 Room Air 09/04/22 14:50 Room Air 09/04/22 14:40 Oxymask 2 09/04/22 14:30 Oxymask 10 09/04/22 14:22 Oxymask 10 09/04/22 10:08 Room Air 09/04/22 10:08 Room Air Pain Intensity Right Knee: Pain Intensity: 5 Right Thigh: Pain Intensity: 2 Transfer of Care Handoff Completed per policy Notes Mental Status: alert / awake / arousable and participated in evaluation Nausea / Vomiting: adequately controlled Pain: adequately controlled Airway Patency, RR, SpO2: stable & adequate BP & HR: stable & adequate Hydration State: stable & adequate Anesthetic Complications: no major complications apparent and Pt Satisfied with anesthetic care
[2022-09-04] MEDS ORDERED: MAGNESIUM HYDROXIDE SUSP 30 ML UDC PO PRN (15:48)
[2022-09-04] MEDS ORDERED: NALOXONE HCL 0.4 MG/1 ML VIAL/CARP IV PRN (15:48)
[2022-09-04] MEDS ORDERED: PHARMACY GLYCEMIC MGMT CONSULT PRN (15:48)
[2022-09-04] MEDS ORDERED: bisacodyL 10 MG SUPP PR PRN (15:48)
[2022-09-04] MEDS ORDERED: HYDROmorphone INJ 0.5 MG/0.5 ML SYR IV PRN (15:48)
[2022-09-04] MEDS: SODIUM CHLORIDE 0.9% 1000ML 1,000 ML IV SCH (16:15)
[2022-09-04] MEDS: oxyCODONE HCL IR 5 MG TAB (IMMEDIATE RELEASE) PO PRN ×2 (16:32→21:03)
[2022-09-04] MEDS ORDERED: WARFARIN SOD 4 MG TAB PO SCH (17:30)
[2022-09-04] MEDS: INSULIN ASPART PER UNIT CHARGE SC SCH ×2 (17:38→21:09)
--- NOTE | 2022-09-04 18:16 | XRay Report ---
XR knee RT 1 or 2V routine CLINICAL HISTORY: Postoperative evaluation. Right quadriceps tendon tear repair. COMPARISON: Right knee CT April 02, 2022. FINDINGS: Right knee arthroplasty is again noted. Hardware is intact. There are skin susie. No une xpected radiopaque foreign bodies are present. IMPRESSION: Postoperative radiographs of the right knee. ACT 112: Negative or not required by law. Electronically signed by: Jimy Hall M.D. 09/04/2022 6:15 PM
[2022-09-04] MEDS: ceFAZolin 2000MG 2,000 MG/15 ML SYR IV SCH (19:45)
[2022-09-04] MEDS ORDERED: SENNA 8.6 MG TAB PO SCH (21:00)
[2022-09-04] MEDS ORDERED: ATORVASTATIN 40 MG TAB PO SCH (21:00)
[2022-09-04] MEDS: RANOLAZINE 500 MG ER TAB PO SCH (21:06)
[2022-09-04] MEDS: ACETAMINOPHEN 500 MG TAB PO SCH (21:07)
[2022-09-04] MEDS: DOCUSATE SODIUM 100 MG CAP PO SCH (21:09)
--- NOTE | 2022-09-05 00:25 | Operative Report (OR) ---
DATE OF PROCEDURE: 09/04/2022. INDICATIONS FOR PROCEDURE: The patient is a 66-year-old male with right knee pain, weakness, some gi ving way. He had a right total knee replacement and was doing well, but did have some injury postope ratively. He developed some pain and instability and x-rays documented demonstrated that his patella superolaterally was fragmented and there were displaced fragments proximally and there was some infe rior tilt of the patella, but that the patellar component appeared to be intact to the large patella fragment that remained attached to the patellar tendon. A metal subtraction MRI verified the implant was still well fixed with 3 pegs into the distal fragment of the patella, but he had a full-thicknes s quadriceps medial retinacular type tear with the lateral quadriceps tendons still to be intact and there was intact tissue that healed across the anterior aspect of the knee. Clinically, the patient did not have an extensor lag; however, he did have pain and giving way. 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 PROCEDURE: Right quadriceps tendon repair, VMO advancement with imbrication, excision of patellar jus ne fragments. SURGEON: Jeremy Najera MD TENT FINISHER: VALENTINO Bill ESTIMATED BLOOD LOSS: 20 mL. FINDINGS: Consistent with postoperative diagnosis. SPECIMENS: Patellar bone fragments to rule out AVN. ANESTHESIA: General, regional. COMPLICATIONS: None. DISPOSITION: Recovery room. Overlapping procedure. I was present for critical portions of the proc edure. DESCRIPTION OF PROCEDURE: The patient was taken to the operating room, anesthetized under anesthesia as dictated. A pneumatic tourniquet was placed about the right upper thigh. His right lower extrem ity demonstrated he had a stable total knee replacement. His range of motion was 0 through 120 degre es and I did have what was thought to be a palpable defect around the medial side of the superior matheus e of the patella. The incision was benign. There were no signs of infection or drainage. Did have an effusion. The right lower extremity was prepped and draped with ChloraPrep. The leg was elevated and exsanguinated with an Esmarch bandage, pneumatic tourniquet was raised to 325 mmHg. An anterior incision was made through the previous scar, extended proximally to get better exposure of the quadr iceps proximally. The subcutaneous flaps were elevated. There was thinning of the medial retinacula r area, but the gross appearance to the extensor mechanism was intact with soft tissue from the super ior quad tendon down the patellar tendon being intact; however, there appeared to be fluid between th at tissue and the patella. An incision was made with an arthrotomy through the medial retinacular ti ssue, it extended down to the medial patellar tendon and proximally splitting the quadriceps tendon i n the medial third. A large effusion, which had some blood in it as the patient was on anticoagulant s, was evacuated from the knee. This appeared to be old blood, nothing new and acute. The knee had some scar tissue and some synovitis. The patella was inspected and there were 2 large fragments that were scarred and attached into the quadriceps tendon that was toward the lateral aspect of the quad tendon above the patella superiorly. They were on the superficial undersurface, but attached firmly to the quadriceps tendon tissue. The patella was inspected and the inferior pole was attached to the patellar tendon, but superiorly in the anterior aspect of the patella, there was no soft tissue mack chment to it and there were just frayed tendon edges on the anterior aspect of the patella and there was some bone missing from the lateral aspect of the patella and on the medial side, there was just t orn tendon tissue and a stump of torn quad tendon on the end of the patella and then there was a sharon esponding undersurface tear toward the medial side of the knee where clearly there was some quadricep s avulsion off the superior pole of the patella. The patellar implant was intact to the intact infer ior fragment of the patella. After copious irrigation with pulse saline solution, the two patellar f ragments were shelled out from the quadriceps tendon, maintaining the continuity of the tendon tissue . These were sent for specimen. Then, the soft tissue that was on the remaining patella anteriorly and superiorly and laterally was debrided with a scalpel and various curettes and a rasp to stimulate healing response there. After more copious irrigation with pulse saline solution, the quadriceps te ndon and medial retinaculum were repaired using two Garcia and Nephew 2.8 mm Q-Fix suture anchors plac ed into the superior and superomedial aspect of the patella sequentially. Then, a transverse drill h ole was made through the patella and a Creditableon suture passer was used to pass #5 FiberWire through the patella and one suture limb of that suture was passed through the lateral retinacular tissue and yessi driceps tendon tissue and then out anteriorly through that tissue, so that we could bring that tissue over to the lateral side of the patella and on the medial side, the limb of the suture was passed up through the thick medial retinacular tissue that was still attached to the patella and then this sut ure was then tied down anteriorly securing the medial and lateral retinacula in the anterior soft tis tony back down to the anterior surface of the patella. The suture, after 6 throws of surgeon's knot w ere placed and the knot being placed superomedially at the end of the suturing, they were maintained intact for later use in the case. At this point, the medial retinacular tissue attached to the VMO w as advanced to the patella and sutured to the patella via the Q-Fix anchors. The sutures were passed in a horizontal mattress fashion through the VMO tendon tissue and then also through the thick franklin lar tendon, quadriceps type tendon tissue that was still attached on to the patella, so that the tiss ue could be imbricated to shorten the medial retinacular tissue and thicken it with the imbrication. Those sutures were all tied and then further closure of the medial retinaculum and quadriceps tendon was performed with interrupted [id number] #2 FiberWire sutures and the #[address] aced through the patella was placed through the fascia of the VMO around the other suture repair to t elver tension off that repair and that was tied again with another surgeon's knot. The repair was secu re through 45 degrees of motion without any tension on the repair, then there was some slight tension on the repair. The patella tracked centrally. The subcutaneous tissues were closed with interrupte d 2-0 Vicryl sutures. Skin was closed with susie and a PREET and Acticoat superficial wound VAC was applied and a double upright hinged knee brace immobilizer applied. When the tourniquet was let kolton n, the patient had normal return of circulation to the extremity. The patient tolerated the procedur e well. Job ID: [id number]
--- NOTE | 2022-09-05 02:40 | Operative Report (OR) ---
ADDENDUM EDITING INTERN: VALENTINO Bill, was my bankruptcy legal assistant. He functioned as bankruptcy legal assistant and w as present for the entire procedure. He assisted in positioning, prepping, draping, leg positioning, and soft tissue retraction and assisted in the subcutaneous skin closure, postoperative care. Job ID: [id number]
[2022-09-05] MEDS: SODIUM CHLORIDE 0.9% 1000ML 1,000 ML IV SCH (03:17)
[2022-09-05] MEDS: ACETAMINOPHEN 500 MG TAB PO SCH (05:17)
[2022-09-05] MEDS: ceFAZolin 2000MG 2,000 MG/15 ML SYR IV SCH (05:17)
[2022-09-05 07:34] LABS: Hemoglobin 11.6 g/dl (14.0-18.0); Mean Corpuscular Hemoglobin 30.2 pg (25.0-34.0); Mean Corpuscular Hgb Conc 33.1 g/dL (32.0-36.0); Mean Corpuscular Volume 91.1 fL (80.0-100.0); Mean Platelet Volume 10.6 fL (9.4-12.4); Platelet Count 115 K/uL (130-400); RDW Coefficient of Variation 14.5 % (11.5-14.5); RDW Standard Deviation 48.3 fL (36.4-46.3); Red Blood Count 3.84 M/uL (4.70-6.10); White Blood Count 4.94 K/ul (4.8-10.8)
--- NOTE | 2022-09-05 07:46 | Orthopedic Progress Note ---
Date of Service September 05, 2022 Assessment & Plan (1) Quadriceps tendon rupture: Plan: Postop day 1 right knee quad tendon repair with VMO advancement, excision patella bone fragments -PT/OT: Weightbearing as tolerated brace in extension. No knee range of motion. May do straight leg raises with brace on, quad sets. -DVT prophylaxis: Lovenox with warfarin until therapeutic -A.m. labs are pending -Pain management as written -Discharge planning: Plan on discharge home today as long as remains stable. Admission and Anticipated Discharge Date Admission Date: September 04, 2022 Subjective Postop day 1 right knee quad tendon repair with VMO advancement, excision bone fragments. Patient is doing well this morning. He has some soreness but pain is controlled. No other complaints. Denies chest pain, shortness of breath, nausea/vomiting/diarrhea, headaches or dizziness. Review of Systems Review of Systems: All systems reviewed & are unremarkable except as noted in Subjective Physical Exam Physical Exam: Right knee: Dressing is clean, dry, intact. John on suction. No calf tenderness. Toes are mobile with good dorsiflexion. Distal neurovascular status and sensation is grossly intact. Results & Data Vital Signs (Past 12 Hours) Vital Signs Temp Pulse Resp BP BP Pulse Ox O2 Del Method 09/05/22 07:36 36.8 C 62 16 153/79 H 98 Room Air 09/05/22 03:00 36.7 C 65 18 159/82 H 100 Room Air 09/04/22 23:43 36.7 C 71 16 128/76 99 Room Air 09/04/22 19:50 36.7 C 62 16 157/81 H 100 Room Air (1) Quadriceps tendon rupture Encounter type: subsequent encounter Laterality: right Qualified Code(s): S76.111D - Strain of right quadriceps muscle, fascia and tendon, subsequent encounter
[2022-09-05 07:51] LABS: BUN Creatinine Ratio 12.2 (10-20); Calcium 8.3 mg/dl (8.6-10.3); Est GFR (African American) 93.4 ml/min; Est GFR (Non-African American) 80.6 ml/min; Potassium 4.5 mmol/L (3.5-5.1)
--- NOTE | 2022-09-05 08:22 | Hospitalist Consultation ---
Date of Consultation September 05, 2022 Assessment & Plan (1) Quadriceps tendon rupture: - Post op day #1 from Right knee quad tendon repair with VMO advancement, and excision of patella bone fragments. - EBL was 20 mL. - Patellar bone fragments were sent to rule out Avascular Necrosis. - Pain medications per primary team - PT/OT WBAT with brace in extension, no knee ROM (2) CAD (coronary artery disease): - Hx Hyperlipidemia on Zetia and Atorvastatin - Hx HTN not on medications controls with low sodium diet per patient BPs usually in 120s/70s at home (3) Aortic stenosis: - Echo 07/01/22 EF 50-55%, No RWMA - Hx of prosthetic aortic valve (2018) (4) Paroxysmal A-fib: - Currently on Lovenox with Coumadin until therapeutic (5) Osteoarthritis, knee: (6) Diabetes mellitus, type 2: - On metformin at home - Held for surgery - Per records prediabetes last HgbA1C 5.1 Plan Patient was discharged and left the hospital before I had the chance to examine him. I did speak with the Ortho PA who stated that patient had the Lovenox at home to use for the bridging of the Coumadin Supervising Physician Co-Signing Physician Notes PA Supervision Note: I did not personally see or examine the patient today, but I verified all andrade points of VALENTINO Angelo's assessment and plan with the following exceptions/additions: None History of Present Illness Reason for Consultation: medical management Requesting Physician: Jeremy Najera MD Attending Physician: Jeremy Najera MD History of Present Illness Artie Coronel III is 66 year old with a past medical history of CAD, Aortic Stenosis s/p bioprosthetic AVR, paroxysmal A Fib on coumadin, Hyperlipidemia, Diabetes and hx of PUD on PPI therapy and OA with previous total right knee replacement who presented to the hospital with increasing right knee pain due to fragmentation of his patella and quad tendon tear. Patient was admitted for elective surgical repair of his right quadriceps tendon. Today patient is post op day #1 from Right knee quad tendon repair with VMO advancement, and excision of patella bone fragments. EBL was 20 mL. Patellar bone fragments were sent to rule out Avascular Necrosis. Per ortho notes, plans to discharge patient home today if he remains stable. Patient was discharged and left the hospital before I had the chance to examine him. I did speak with the Ortho PA who stated that patient had the Lovenox at home to use for the bridging of the Coumadin Also CM left a message on patient's phone to make sure he has the Lovenox at home. Allergies Allergy/AdvReac Type Severity Reaction Status Date / Time No Known Allergies Allergy Verified 09/04/22 10:06 Home Medications Medication Instructions Recorded Confirmed Type atorvastatin 80 mg tablet 80 mg PO PM 07/08/19 09/04/22 History ezetimibe 10 mg tablet (Zetia) 10 mg PO QAM 07/08/19 09/04/22 History metformin 500 mg tablet 500 mg PO QPM 07/08/19 09/04/22 History ranolazine 1,000 mg 1,000 mg PO BID 07/08/19 09/04/22 History tablet,extended release,12 hr (Ranexa) warfarin 2 mg tablet 3 - 4 mg PO .HOLD 07/08/19 09/04/22 History pantoprazole 40 mg tablet,delayed 40 mg PO QAM 08/02/22 09/04/22 History release (Protonix) enoxaparin 100 mg/mL subcutaneous 100 mg subcut DAILY 09/04/22 09/04/22 History syringe acetaminophen 500 mg tablet 1,000 mg PO Q8 #60 tabs 09/05/22 Rx (Tylenol Extra Strength) cefadroxil 500 mg capsule 500 mg PO BID #28 caps 09/05/22 Rx oxycodone 5 mg tablet 5 - 10 mg PO .Q4h-6h PRN pain #30 09/05/22 Rx tabs Patient History Medical History Aortic stenosis S/P bioprosthetic AV (2018) Mild aortic stenosis (MG 24.0 mmhg, PAKO 1.15cm2) per 06/2022 echo CAD (coronary artery disease) total stents x5 (most recent stent 2011, most recent cath 2017 prior to AVR- no stents) Follows with Dr. Devlin/Larry Hiatal hernia History of bleeding peptic ulcer Bleeding ulcer several months ago, repeat EGD done 07/2022 ("healed") Hyperlipidemia Hypertension Paroxysmal A-fib Prediabetes Taking Metformin Surgical History Fusion of spine Decompression/fusion L4-S1 08/23/19 = Glidescope #4, ETT 7.5, atraumatic x 1 attempt. History of arthroscopy Right knee History of cardiac cath total stents x5 (most recent stent 2011, most recent cath 2017 prior to AVR- no stents) History of colonoscopy History of esophagogastroduodenoscopy (EGD) Repeat done 07/2022 to check bleeding ulcer History of heart valve replacement AVR (2018) History of myringotomy History of total shoulder replacement Right Hx of tonsillectomy S/P total knee arthroplasty Right TKA (03/22/20): LMA #5 + PNB at [facility] Status post lumbar surgery [place] teeth removed Family History Sister Family history of reaction to anesthesia PONV Mother Family history of diabetes mellitus Father Family history of diabetes mellitus Social History Smoking Status: Never smoker Second Hand Exposure: No; Do You Dip or Chew Tobacco: No; Tobacco Cessation Education Requested by Patient: No Hx Alcohol Use: Yes Alcohol type: beer Hx Substance Use: No Preferred Language: [place] Communication Ability: Effective School Director Required: No Beliefs That Will Affect Care: None marital status: Current Living Situation: Spouse Other Information That Helps Us Care for You: No Feels Safe at Home: Yes Safety Concerns: Feels Safe At This Time Assistive Devices: Walker Assistive Devices Comment: uses occasionally Results & Data Results & Data Vital Signs (Past 12 Hours) Vital Signs Temp Pulse Resp BP Pulse Ox O2 Del Method 09/05/22 07:36 36.8 C 62 16 153/79 H 98 Room Air 09/05/22 03:00 36.7 C 65 18 159/82 H 100 Room Air 09/04/22 23:43 36.7 C 71 16 128/76 99 Room Air Laboratory Results Abnormal lab results 09/04/22 09/04/22 09/05/22 Range/Units 10:09 21:09 06:49 RBC 3.84 L (4.70-6.10) M/uL Hgb 11.6 L (14.0-18.0) g/dl Hct 35.0 L (42.0-52.0) % RDW Std Deviation 48.3 H (36.4-46.3) fL Plt Count 115 L (130-400) K/uL POC Glucose 100 H 102 H (70-99) mg/dl Calcium (8.6-10.3) mg/dl 09/05/22 Range/Units 06:49 RBC (4.70-6.10) M/uL Hgb (14.0-18.0) g/dl Hct (42.0-52.0) % RDW Std Deviation (36.4-46.3) fL Plt Count (130-400) K/uL POC Glucose (70-99) mg/dl Calcium 8.3 L (8.6-10.3) mg/dl Diagnostic Findings Knee X-Ray 09/04/22 17:22 XR knee RT 1 or 2V routine CLINICAL HISTORY: Postoperative evaluation. Right quadriceps tendon tear repair. COMPARISON: Right knee CT April 02, 2022. FINDINGS: Right knee arthroplasty is again noted. Hardware is intact. There are skin susie. No unexpected radiopaque foreign bodies are present. IMPRESSION: Postoperative radiographs of the right knee. ACT 112: Negative or not required by law. Electronically signed by: Jimy Hall M.D. 09/04/2022 6:15 PM PG Care Time/CCT Total # of Minutes Spent Total Time Spent with Patient: Total time spent is greater than 50% in coordination of care (as documented) at patient's floor/unit and/or counseling patient: Coding Level of Care Code None Diagnoses Quadriceps tendon rupture S76.111D Encounter type: subsequent encounter Laterality: right CAD (coronary artery disease) I25.10 Aortic stenosis I35.0 Paroxysmal A-fib I48.0 Osteoarthritis, knee M17.10 Diabetes mellitus, type 2 E11.9 (1) Quadriceps tendon rupture Encounter type: subsequent encounter Laterality: right Qualified Code(s): S76.111D - Strain of right quadriceps muscle, fascia and tendon, subsequent encounter
[2022-09-05] MEDS: INSULIN ASPART PER UNIT CHARGE SC SCH (08:38)
[2022-09-05] MEDS: DOCUSATE SODIUM 100 MG CAP PO SCH (08:38)
[2022-09-05] MEDS: RANOLAZINE 500 MG ER TAB PO SCH (08:39)
[2022-09-05] MEDS: oxyCODONE HCL IR 5 MG TAB (IMMEDIATE RELEASE) PO PRN (08:44)
[2022-09-05] MEDS ORDERED: EZETIMIBE 10 MG TABLET PO SCH (09:00)
[2022-09-05] MEDS ORDERED: ENOXAPARIN 150 MG/ML SYR SQ SCH (09:00)
[2022-09-05] MEDS ORDERED: MULTIVITAMIN TAB PO SCH (09:00)
[2022-09-05] MEDS ORDERED: PANTOprazole 40 MG TAB PO SCH (09:00)
[2022-09-05] MEDS ORDERED: WARFARIN SOD 3 MG TAB PO SCH (16:00)
--- NOTE | 2022-09-06 07:59 | Discharge Summary ---
Date of Service September 06, 2022 Admission HPI Per Admitting Provider 66yo male with PMHx significant for aortic stenosis s/p AVR, CAD, HTN who presents with ongoing right knee pain. He had previous total knee and initially did well. Several months ago started to have increasing right knee pain after stumbling. X-rays and MRI demonstrate fragmentation of his patella with quad tendon tear. He would like to proceed with surgical intervention. Patient denies headaches, sweats, fevers, chills, double vision, blurred vision, cough, sore throat, dysphagia, chest pain, sob, wheezing, n/v/d/c, numbness, tingling, fatigue, urinary symptoms, mood disorders. ROS positive for right knee pain and stiffness. Admission Exam Per Admitting Provider Constitutional: well developed and well nourished; no acute distress Eyes: PERRL, conjunctivae normal, anicteric sclerae ENMT: external ear and nose normal, oropharynx normal Neck: trachea midline, no thyromegaly Respiratory: normal respiratory effort, lungs clear to auscultation Cardiovascular: RRR, no murmur, no edema Musculoskeletal: Right knee: Tenderness quad tendon with palpalbe defect. + Extensor lag. ROM 0- 110 degrees. Stable to valgus and varus stress. Negative posterior drawer. Skin: no rashes, warm and dry Neurologic: patellar DTR's 2+ bilat, sensation intact Psychiatric: A+Ox3, euthymic affect Principal Diagnosis Right quad tendon tear Discharge Exam Right knee: Dressing is clean, dry, intact. John on suction. No calf tenderness. Toes are mobile with good dorsiflexion. Distal neurovascular status and sensation is grossly intact. Discharge Data Allergies Allergy/AdvReac Type Severity Reaction Status Date / Time No Known Allergies Allergy Verified 09/04/22 10:06 Consultations 09/04/22 15:48 Consult Hospitalist Routine Procedures Performed Operation Date: 09/04/22 12:20 Actual Procedures p Right Quadriceps Tendon Repair, Excision Patellar Bone Fragments(Right) - Jeremy Najera MD Ordered Studies 09/04/22 11:31 US - OR guided needle placemen Routine Hospital Course (1) Quadriceps tendon rupture: Postop day 1 right knee quad tendon repair with VMO advancement, excision patella bone fragments -PT/OT: Weightbearing as tolerated brace in extension. No knee range of motion. May do straight leg raises with brace on, quad sets. -DVT prophylaxis: Lovenox with warfarin until therapeutic -A.m. labs are pending -Pain management as written -Discharge planning: Plan on discharge home today as long as remains stable. Lab Results 09/04/22 09/04/22 09/04/22 Range/Units 10:09 10:14 17:07 WBC (4.8-10.8) K/ul RBC (4.70-6.10) M/uL Hgb (14.0-18.0) g/dl Hct (42.0-52.0) % MCV (80.0-100.0) fL MCH (25.0-34.0) pg MCHC (32.0-36.0) g/dL RDW Std Deviation (36.4-46.3) fL RDW Coeff of Hernando (11.5-14.5) % Plt Count (130-400) K/uL MPV (9.4-12.4) fL PT 11.7 (9.0-12.0) Seconds INR 1.1 (0.9-1.1) APTT 30.7 (21.0-31.0) Seconds PTT Ratio 1.1 Sodium (136-145) mmol/L Potassium (3.5-5.1) mmol/L Chloride (98-107) mmol/L Carbon Dioxide (21-32) mmol/L Anion Gap (3-11) BUN (6-23) mg/dl Creatinine (0.6-1.4) mg/dl Est Cr Clr Drug Dosing ml/min Est GFR ( Amer) ml/min Est GFR (Non-Af Amer) ml/min BUN/Creatinine Ratio (10-20) Glucose (70-99(Fasting)) mg/dl POC Glucose 100 H 94 (70-99) mg/dl Calcium (8.6-10.3) mg/dl SARS-CoV-2, RNA, NAAT (NEGATIVE) 09/04/22 09/04/22 09/05/22 Range/Units 21:09 Unknown 06:49 WBC 4.94 (4.8-10.8) K/ul RBC 3.84 L (4.70-6.10) M/uL Hgb 11.6 L (14.0-18.0) g/dl Hct 35.0 L (42.0-52.0) % MCV 91.1 (80.0-100.0) fL MCH 30.2 (25.0-34.0) pg MCHC 33.1 (32.0-36.0) g/dL RDW Std Deviation 48.3 H (36.4-46.3) fL RDW Coeff of Hernando 14.5 (11.5-14.5) % Plt Count 115 L (130-400) K/uL MPV 10.6 (9.4-12.4) fL PT (9.0-12.0) Seconds INR (0.9-1.1) APTT (21.0-31.0) Seconds PTT Ratio Sodium (136-145) mmol/L Potassium (3.5-5.1) mmol/L Chloride (98-107) mmol/L Carbon Dioxide (21-32) mmol/L Anion Gap (3-11) BUN (6-23) mg/dl Creatinine (0.6-1.4) mg/dl Est Cr Clr Drug Dosing ml/min Est GFR ( Amer) ml/min Est GFR (Non-Af Amer) ml/min BUN/Creatinine Ratio (10-20) Glucose (70-99(Fasting)) mg/dl POC Glucose 102 H (70-99) mg/dl Calcium (8.6-10.3) mg/dl SARS-CoV-2, RNA, NAAT NEGATIVE (NEGATIVE) 09/05/22 09/05/22 Range/Units 06:49 08:10 WBC (4.8-10.8) K/ul RBC (4.70-6.10) M/uL Hgb (14.0-18.0) g/dl Hct (42.0-52.0) % MCV (80.0-100.0) fL MCH (25.0-34.0) pg MCHC (32.0-36.0) g/dL RDW Std Deviation (36.4-46.3) fL RDW Coeff of Hernando (11.5-14.5) % Plt Count (130-400) K/uL MPV (9.4-12.4) fL PT (9.0-12.0) Seconds INR (0.9-1.1) APTT (21.0-31.0) Seconds PTT Ratio Sodium 136 (136-145) mmol/L Potassium 4.5 (3.5-5.1) mmol/L Chloride 105 (98-107) mmol/L Carbon Dioxide 27 (21-32) mmol/L Anion Gap 4 (3-11) BUN 12 (6-23) mg/dl Creatinine 0.98 (0.6-1.4) mg/dl Est Cr Clr Drug Dosing 88.0 ml/min Est GFR ( Amer) 93.4 ml/min Est GFR (Non-Af Amer) 80.6 ml/min BUN/Creatinine Ratio 12.2 (10-20) Glucose 98 (70-99(Fasting)) mg/dl POC Glucose 115 H (70-99) mg/dl Calcium 8.3 L (8.6-10.3) mg/dl SARS-CoV-2, RNA, NAAT (NEGATIVE) Total Time Total Time Spent Total Time Spent (In Minutes): 20 Discharge Plan Discharge Items Patient Disposition: Home - Self-Care Reason For Visit: POST OP Discharge Diagnosis: Right knee quad tendon tear Activity: Per Instructions section Non-emergency contact: Surgeon Call non-emergency contact if: you have any medication questions, your pain is not controlled, your pain is concerning for you, you have a fever, your temperature is above 101, your wound has increased redness and your wound has increased drainage Follow-up/Referrals: Franc Black CRNP [Primary Care Provider] - Diet: Regular Addtl Attending Provider Instructions: ACTIVITY RECOMMENDATIONS: A. You may need to continue a physical therapy program after discharge from the hospital. There are several options available to you. Your doctor will assist you in selecting the best one for you. . Continue working on all exercises taught to you in the hospital. You may be weight bearing with walker with knee in extension with brace on. C. Make walking a part of your daily routine. Be up as much as comfortable with rest periods throughout the day. Rest with leg elevation is very important. Use the ice wrap frequently for the first 3-4 weeks. D. There are no restrictions on activities. You may ride in a car, shop, participate in shuttler car and all social activities. E. Wear the long elastic stockings (KINGS hose) 20 hours a day for 2 weeks after surgery. They can be removed several times a day for laundering and for a bath. F. You may shower, no tub baths until cleared by your doctor. SPECIAL CARE INSTRUCTIONS: VERY IMPORTANT TO READ AND REVIEW A. There are a few signs you need to watch for after you are home. Call [facility] if you notice any of the followin. Increased severe knee pain. Some pain is expected especially when you exercise. 2. Increased swelling in your leg or knee; pain or swelling of the calf muscle in either lower leg. 3. Any fluid drainage from the incision. 4. Shortness of breath or chest pain. B. Please call [facility] at if you have any concerns or questions about your operation or recovery. The doctor or his nurse will return your call promptly. C. You must take antibiotics before dental work, bladder, bowel or other surgery. Your doctor will provide you with a permanent care to carry describing this precaution. IMPORTANT: * REMEMBER TO TAKE ASPIRIN, 81 MG, TWICE DAILY FOR 4 WEEKS UNLESS OTHERWISE DIRECTED. THIS IS YOUR BLOOD THINNER. * HIGH RISK PATIENTS MAY BE PRESCRIBED A STRONGER BLOOD THINNER. THIS WILL BE PROVIDED AT DISCHARGE. * CALL IF INCREASED PAIN, REDNESS, DRAINAGE OR FEVER GREATER THAT 101. * WEAR KINGS HOSE 20 HOURS PER DAY FOR 2 WEEKS. This is a large suction dressing covering your incision. This will help pull any excess drainage from the wound and allow your incision to heal properly. You may shower with this if you can keep the unit outside of the shower. If any bleeding or leakage is noted please call your doctor's office. This will remain on your incision for 7 days and then should be removed. This can be done yourself or by the home nursing staff if applicable. The entire unit is disposable once removed. Once removed, keep incision clean and dry. If redness or drainage is noted, please call your surgeon. IF INCISION IS LEAKING THROUGH DRESSING, CALL THE OFFICE . FOLLOW UP VISIT: If appointment is not already scheduled: Please call [facility] to make a follow-up appointment for 2 weeks after your surgery at . Stand-Alone Forms: [employer], Smoking Cessation Medications and DC Order Prescriptions: New oxycodone 5 mg Tablet 5 - 10 mg PO .Q4h-6h MDD 6 PRN (Reason: pain) Qty: 30 0RF Rx Instructions: Ongoing therapy, Dr. Najera supervising acetaminophen [Tylenol Extra Strength] 500 mg Tablet 1,000 mg PO Q8 Qty: 60 0RF cefadroxil 500 mg capsule 500 mg PO BID Qty: 28 0RF Continued warfarin 2 mg Tablet 3 - 4 mg PO .HOLD Patient Comments: ALTERNATES 3MG/4MG QOD metformin 500 mg Tablet 500 mg PO QPM atorvastatin 80 mg Tablet 80 mg PO PM ezetimibe [Zetia] 10 mg Tablet 10 mg PO QAM ranolazine [Ranexa] 1,000 mg Tablet Extended Release 12 Hr 1,000 mg PO BID pantoprazole [Protonix] 40 mg Tablet,Delayed Release (Dr/Ec) 40 mg PO QAM enoxaparin 100 mg/mL syringe 100 mg subcut DAILY Discontinued acetaminophen 500 mg tablet 1,000 mg PO Q8 PRN (Reason: Pain) Discharge Orders: Discharge Order (Routine); Ordered 09/05/22 Ordered By: Steve Blackman/Other Patient Handouts: DVT Post Op Prevention Admission Data Admit Date/Time: 09/04/22 14:36 Attending Provider: Jeremy Najera Admit Provider: Jeremy Najera Primary Care Provider: Franc Black Other Providers: Sam Alfredo ; Libby Rogers
== END 2022-09-05 11:30 | disposition home or self-care (01) ==
LOC: ASU 09:54 → 3E 09:54
DX: Z98.1 Arthrodesis status; I35.0 Nonrheumatic aortic (valve) stenosis; E11.9 Type 2 diabetes mellitus without complications; M22.8X1 Other disorders of patella, right knee; I48.0 Paroxysmal atrial fibrillation; M17.10 Unilateral primary osteoarthritis, unspecified knee; Z79.84 Long term (current) use of oral hypoglycemic drugs; Z79.01 Long term (current) use of anticoagulants; S86.811A Strain of other muscle(s) and tendon(s) at lower leg level, right leg, initial encounter; Z79.899 Other long term (current) drug therapy; S76.111A Strain of right quadriceps muscle, fascia and tendon, initial encounter; X58.XXXA Exposure to other specified factors, initial encounter; I10 Essential (primary) hypertension; I25.10 Atherosclerotic heart disease of native coronary artery without angina pectoris